=== PATIENT | male | born 1935 | race Caucasian/White ===

== ENCOUNTER 2019-12-27 09:39 | Observation (INO) ==
--- NOTE | 2019-12-03 16:07 | PAT Medication Instructions ---
Medication Instructions Date of Service December 03, 2019 Home Medications albuterol sulfate [Proventil HFA] 2 puff INHALATION Q6H PRN alendronate 70 mg PO WK ascorbic acid (vitamin C) 500 mg PO QAM aspirin 81 mg PO Q2D cholecalciferol (vitamin D3) 1,000 unit PO QAM cyanocobalamin (vitamin B-12) 1,000 mcg PO QAM escitalopram oxalate [Lexapro] 20 mg PO QPM furosemide [Lasix] 20 mg PO 3XWK lisinopril 20 mg PO QAM multivitamin 1 tab PO QAM prednisone 10 mg PO QAM Cbd Oil 1 dose SUBLINGUAL QAM bupropion HCl [Wellbutrin SR] 100 mg PO QAM famotidine 20 mg PO QAM ibuprofen 200 mg PO BID ASK your surgeon for instructions ibuprofen 200 mg PO BID DO NOT take the morning of surgery alendronate 70 mg PO WK ascorbic acid (vitamin C) 500 mg PO QAM cholecalciferol (vitamin D3) 1,000 unit PO QAM cyanocobalamin (vitamin B-12) 1,000 mcg PO QAM furosemide [Lasix] 20 mg PO 3XWK lisinopril 20 mg PO QAM multivitamin 1 tab PO QAM Cbd Oil 1 dose SUBLINGUAL QAM Take morning of surgery With a small sip of water, OTHERWISE NOTHING TO EAT OR DRINK AFTER MIDNIGHT: albuterol sulfate [Proventil HFA] 2 puff INHALATION Q6H PRN (if needed) aspirin 81 mg PO Q2D (if scheduled) prednisone 10 mg PO QAM bupropion HCl [Wellbutrin SR] 100 mg PO QAM famotidine 20 mg PO QAM Other Notes If you have any questions please call us at [phone] or [phone] or [phone] or [phone]
--- NOTE | 2019-12-04 10:45 | Anesthesiology Consultation ---
Date of Service December 04, 2019 Assessment & Plan (1) Encounter for pre-operative examination: COVID Status: As of 12/03 assessment, patient denies travel to endemic area, known exposure/sick contacts, or symptoms of COVID19. Patient instructed that they and their household members must follow strict social distancing guidelines, wear a mask in public and avoid travel for 14 days prior to surgery. Patient did have a birthday constitution party for his 84th birthday on 12/02. Reports there were ~ 30 people present, they did not wear masks but it was outside. Preope rative COVID19 testing to be completed prior to surgery per surgeon's arrangements. Patient made aware to self-isolate as much as possible between COVID testing and surgery. S/P lap cris 02/18/18 @ [facility]: MAC #4, ETT 7.5, grade view II. Smooth IV induction, DL atraumatic. PATIENT IS VERY [place]. Case d/w Dr. Ramirez. Due to chronic demyelinating disease, not a candidate for SAB. Discussed GA vs epidural with patient and his daughter, further discussion to be had AM DOS. Chart Review Chart Review: Acceptable Risk for Surgery and Patient seen in Pre Admission Testing Teaching & Discussion Instructed NPO after midnight before surgery, except medications with 15 cc of water. Medication instructions provided according to the PAT guidelines. History Surgery Operation Date: 12/27/19 10:40 Proposed Procedures p Right Anterior Total Hip Arthroplasty - Miah Feldman, Height/Weight Height: 5 ft 8 in Weight: 90.8 kg Allergies Allergy/AdvReac Type Severity Reaction Status Date / Time simvastatin AdvReac Mild leg pain Verified 11/27/19 09:05 tramadol [From Ultram] AdvReac Mild Hallucinati Verified 11/27/19 09:05 ng Medications Home Medications Medication Instructions Recorded Confirmed Last Taken alendronate 70 mg PO WK 02/17/18 12/04/19 05/15/18 ascorbic acid (vitamin C) 500 mg PO QAM 02/17/18 12/04/19 05/15/18 aspirin 81 mg PO Q2D 02/17/18 12/04/19 05/15/18 cholecalciferol (vitamin D3) 1,000 unit PO QAM 02/17/18 12/04/19 05/15/18 [Vitamin D3] cyanocobalamin (vitamin B-12) 1,000 mcg PO QAM 02/17/18 12/04/19 05/15/18 [Vitamin B-12] escitalopram oxalate [Lexapro] 20 mg PO QPM 02/17/18 12/04/19 05/15/18 multivitamin 1 tab PO QAM 02/17/18 12/04/19 05/15/18 prednisone 10 mg PO QAM 02/17/18 12/04/19 05/15/18 Cbd Oil 1 dose SUBLINGUAL QAM 11/27/19 12/04/19 Unknown bupropion HCl [Wellbutrin SR] 100 mg PO QAM 11/27/19 12/04/19 Unknown famotidine 20 mg PO QAM 11/27/19 12/04/19 Unknown acetaminophen 325 mg tablet 325 mg PO QID PRN 12/04/19 12/04/19 Unknown famotidine 20 mg tablet 20 mg PO DAILY 12/04/19 12/04/19 Unknown furosemide 20 mg tablet 20 mg PO PRN tab 12/04/19 12/04/19 Unknown lisinopril 20 mg tablet 10 mg PO QAM tab 12/04/19 12/04/19 Unknown Past Medical History Medical History Anxiety CIDP (chronic inflammatory demyelinating polyneuropathy) Eduard Grande; Dr. Guzman/ [facility] q 3 months Pt has numbness in feet/ankles, some numbness in fingers. On daily Prednisone 10mg . Depression GERD (gastroesophageal reflux disease) Hypertension Left bundle branch block (LBBB) Osteoporosis Exercise / Class Metabolic Activity II 4-5 Yardwork/Stairs/Walk up hill (Can go up and down stairs, denies CP or SOB, uses cane for stability) Past Family History Family History Other No family history of adverse response to anesthesia Past Surgical History Surgical History History of anesthesia reaction SLOW TO WAKE UP-W GALL BLADDER 2017-[facility] History of cataract surgery RT/LT History of colonoscopy History of esophagogastroduodenoscopy (EGD) History of tooth extraction all teeth History of total left hip replacement Hx of cholecystectomy Past Anesthesia History No Hx of Anesthesia Complications and No Family Hx of Anesthesia Complications History of PONV No Hx of PONV and No Hx of Motion Sickness Social History Smoking Status: Never smoker Do You Dip or Chew Tobacco: No (QUIT YRS AGO) Hx Alcohol Use: No Hx Substance Use: No substance use type: other Substance Use Type Other:: CBD OIL SUBLINGUAL QAM Review of Systems Pt denies any recent chest pain, shortness of breath, palpitations, cough, feve r, URI, or uncontrolled acid reflux. Physical Exam Vital Signs BP: 109/69 P: 76bpm SPO2: 94% RA T: 98.1 F R: 16 ENMT Mouth: + dentures and + edentulous Thyromental Distance: > or= 3.5 Finger Breadths Mallampati Class: I Neck normal visual inspection and + short neck; neck extension not limited Respiratory normal respiratory effort Auscultation: lungs clear to auscultation bilaterally Cardiovascular Rate/Rhythm: regular rate and regular rhythm Heart Sounds: no murmur Vessels: no carotid bruit Extremities: no edema Testing Laboratory Results 12/04/19 11:25 12/04/19 11:25 PT 9.9 Seconds (9.0-12.0) 12/04/19 11:25 INR 0.9 (0.9-1.1) 12/04/19 11:25 APTT 25.0 Seconds (21.0-31.0) 12/04/19 11:25 Hemoglobin A1c 6.1 % (4.5-5.6) H 12/04/19 11:25 Blood Type O Positive 12/04/19 11:25 Antibody Screen NEGATIVE 12/04/19 11:25 Electrocardiogram Date: 12/04/19 Findings: + NSR @ (67bpm) Left axis deviation. Left bundle branch block. No significant change from 02/20/2018. Chest X-Ray Date: 12/04/19 1. No acute process within the chest. 2. Stable mild cardiomegaly. 3. Stable volume loss within the right hemithorax. 4. Improved aeration within the right lung base. Echocardiogram Date: 02/18/18 EF: 50-55% The left ventricle is normal in size. The basal septum is thickened and angulated consistent with sigmoid septum. The right ventricular systolic function is normal. Aortic valve sclerosis mild, without significant aortic valvular stenosis. There were technical limitations due to patient's poor acoustic windows secondary to severe lung disease. *patient had been hospitalized at the time for pneumonia.
[2019-12-04 11:46] LABS: Basophils # (auto) 0.01 K/uL (0-0.2); Basophils % (auto) 0.1 %; Eosinophils # (auto) 0.04 K/uL (0-0.5); Eosinophils % (auto) 0.4 %; Hematocrit (blood only) 41.9 % (42-52); Hemoglobin 13.7 g/dL (14.0-18.0); Immature Granulocytes # (auto) 0.12 K/uL (0.00-0.02); Immature Granulocytes % (auto) 1.2 %; Lymphocytes # (auto) 0.68 K/uL (1.2-3.4); Mean Corpuscular Hemoglobin 33.3 pg (25-34); Mean Corpuscular Hgb Conc 32.7 g/dL (32-36); Mean Corpuscular Volume 101.7 fL (80-100); Mean Platelet Volume 8.9 fL (7.4-10.4); Monocytes # (auto) 0.68 K/uL (0.11-0.59); Neutrophils # (auto) 8.15 K/uL (1.4-6.5); Neutrophils % (auto) 84.3 %; Platelet Count 232 K/uL (130-400); RDW Coefficient of Variation 13.6 % (11.5-14.5); RDW Standard Deviation 50.8 fL (36.4-46.3); Red Blood Count 4.12 M/uL (4.7-6.1); White Blood Count 9.68 K/uL (4.8-10.8)
[2019-12-04 11:58] LABS: INR 0.9 (0.9-1.1); Partial Thromboplastin Ratio 0.9; Prothrombin Time 9.9 Seconds (9.0-12.0)
--- NOTE | 2019-12-04 12:23 | XRay Report ---
XR chest Pre-admission PA/Lat HISTORY: Preop. COMPARISON: Chest 02/20/2018. FINDINGS: Calcified mediastinal lymph nodes are again noted. There is a calcified granuloma within th e right lung base. There is volume loss within the right lung with increased markings within the righ t medial lung base. This is stable compared the prior studies. There is improved aeration within the right lung base with a few linear densities suggesting subsegmental atelectasis. The left lung is antonio ar. Nodular density at the base of the left lower lobe is consistent with a nipple shadow. The heart remains mildly enlarged. No evidence for pulmonary edema. IMPRESSION: 1. No acute process within the chest. 2. Stable mild cardiomegaly. 3. Stable volume loss within the right hemithorax. 4. Improved aeration within the right lung base. ACT 112: Negative or not required by law. Electronically signed by: Rodolfo Pérez M.D. 12/04/2019 12:22 PM
--- NOTE | 2019-12-04 12:39 | Electrocardiogram Report ---
Test Reason : Blood Pressure : / mmHG Vent. Rate : 067 BPM Atrial Rate : 067 BPM P-R Int : 162 ms QRS Dur : 150 ms QT Int : 488 ms P-R-T Axes : 067 -35 094 degrees QTc Int : 515 ms Normal sinus rhythm Left axis deviation Left bundle branch block Abnormal ECG When compared with ECG of 20-FEB-2018 06:35, No significant change was found Confirmed by Devante Georges ([id number]) on 12/04/2019 12:39:32 PM Referred By: Miah Feldman Confirmed By:Devante Georges
[2019-12-04 13:00] LABS: Estimated Average Glucose 128 mg/dl; Hemoglobin A1C 6.1 % (4.5-5.6)
[2019-12-04 13:24] LABS: BUN Creatinine Ratio 16.4 (10-20); Calcium 8.5 mg/dl (8.5-10.1); Creatinine Clr Calc Pharmacy 62.7 ml/min; Est GFR (African American) 87.6; Est GFR (Non-African American) 75.6; Potassium 4.6 mmol/L (3.5-5.1)
--- NOTE | 2019-12-26 06:44 | History & Physical Report ---
Date of Service December 26, 2019 Assessment & Plan (1) Osteoarthritis of right hip: We will proceed with a right anterior total knee arthroplasty. Postoperatively he will be placed on aspirin for DVT prophylaxis and kept overnight in the hospital for postoperative medical management. He plans to use [employer] upon discharge. Present on Admission?: Yes History of Present Illness Chief Complaint: Primary osteoarthritis of the right hip Primary Care Provider: Mai Jett MD Mayank is a pleasant 84-year-old male who has been dealing with chronic increasing right hip and groin pain. X-rays and clinical examination have been diagnostic for advanced osteoarthritis of the right hip. After failing conservative treatment, he has elected to proceed with a right anterior total hip arthroplasty. He does have a history of a left hip replacement done about 10 years ago and has done very well with that. Allergies Allergy/AdvReac Type Severity Reaction Status Date / Time simvastatin AdvReac Mild leg pain Verified 11/27/19 09:05 tramadol [From Ultram] AdvReac Mild Hallucinati Verified 11/27/19 09:05 ng Home Medications Home Medications Medication Instructions Recorded Confirmed Type alendronate 70 mg PO WK 02/17/18 12/04/19 History ascorbic acid (vitamin C) 500 mg PO QAM 02/17/18 12/04/19 History aspirin 81 mg PO Q2D 02/17/18 12/04/19 History cholecalciferol (vitamin D3) 1,000 unit PO QAM 02/17/18 12/04/19 History [Vitamin D3] cyanocobalamin (vitamin B-12) 1,000 mcg PO QAM 02/17/18 12/04/19 History [Vitamin B-12] escitalopram oxalate [Lexapro] 20 mg PO QPM 02/17/18 12/04/19 History multivitamin 1 tab PO QAM 02/17/18 12/04/19 History prednisone 10 mg PO QAM 02/17/18 12/04/19 History Cbd Oil 1 dose SUBLINGUAL QAM 11/27/19 12/04/19 History bupropion HCl [Wellbutrin SR] 100 mg PO QAM 11/27/19 12/04/19 History famotidine 20 mg PO QAM 11/27/19 12/04/19 History acetaminophen 325 mg tablet 325 mg PO QID PRN 12/04/19 12/04/19 History famotidine 20 mg tablet 20 mg PO DAILY 12/04/19 12/04/19 History furosemide 20 mg tablet 20 mg PO PRN tab 12/04/19 12/04/19 History lisinopril 20 mg tablet 10 mg PO QAM tab 12/04/19 12/04/19 History Past Med/Surg History Medical History Anxiety CIDP (chronic inflammatory demyelinating polyneuropathy) Eduard Grande; Dr. Guzman/ [facility] Puente q 3 months Pt has numbness in feet/ankles, some numbness in fingers. On daily Prednisone 10mg . Depression GERD (gastroesophageal reflux disease) Hypertension Left bundle branch block (LBBB) Osteoporosis Surgical History History of anesthesia reaction SLOW TO WAKE UP-W GALL BLADDER 2018-[facility] History of cataract surgery RT/LT History of colonoscopy History of esophagogastroduodenoscopy (EGD) History of tooth extraction all teeth History of total left hip replacement Hx of cholecystectomy Family History Other No family history of adverse response to anesthesia Social History Smoking Status: Never smoker Second Hand Exposure: No; Do You Dip or Chew Tobacco: No (QUIT YRS AGO); Hx Alcohol Use: No Hx Substance Use: No Preferred Language: [place] Communication Ability: Effective Visual Impairment: Limited Hearing Ability: Hard of Hearing Button Maker And Installer Required: No Beliefs That Will Affect Care: None marital status: Current Living Situation: Spouse Other Information That Helps Us Care for You: No Feels Safe at Home: Yes Safety Concerns: Feels Safe At This Time Review of Systems Review of Systems: All systems reviewed & are unremarkable except as noted in HPI & below Physical Exam Constitutional: WD/WN, vitals as above Eyes: PERRL, conjunctivae normal, anicteric sclerae ENMT: external ear and nose normal, oropharynx normal Neck: trachea midline, no thyromegaly Respiratory: normal respiratory effort Cardiovascular: RRR, no murmur, no edema Gastrointestinal (Abdomen): normal bowel sounds, soft, nontender, no hepatosplenomegaly Musculoskeletal: Physical examination of the right hip reveals decreased range of motion with flexion, internal and external rotation. There is significant groin pain with forced internal rotation of the hip his leg lengths are essentially equal. Psychiatric: A+Ox3, euthymic affect Results & Data Results & Data ([facility]) Diagnostic Findings Radiographs of the right hip and pelvis demonstrate advanced osteoarthritis with joint space narrowing osteophyte formation and [id number] articulation. PG Care Time/CCT Total # of Minutes Spent Total Time Spent with Patient: Total time spent is greater than 50% in coordination of care (as documented) at patient's floor/unit and/or counseling patient: Coding Level of Care Code 60591 OBS Care - Level 2 Diagnoses Osteoarthritis of right hip M16.11
[2019-12-26 08:10] LABS: SARS CoV2 RNA (COVID-19) NOT DETECTED (NOT DETECTED)
[~2019-12-27 09:39] MED LIST: ACETAMINOPHEN 500 MG TAB PO SCH; BUPIVACAINE 0.5 % 5 MG/1 ML PF 10ML VIAL ONE; CEFAZOLIN 2000MG 2,000 MG/15 ML SYR IV SCH; FAMOTIDINE 20 MG TAB PO SCH; GABAPENTIN 300 MG CAP PO SCH; LIDOCAINE HCL 2% 2 ML VIAL/AMP(20MG/ML) INFIL ONE; LR 500ML BOLUS, THEN 15ML/HR IV SCH; LR 60ML/HR IV SCH; MIDAZOLAM HCL 1 MG/ML 2ML VIAL ONE; ONDANSETRON INJ 2 MG/ML 2 ML VIAL ONE; PROPOFOL IV EMULSION 10 MG/ML 20 ML VIAL IV ONE; ROPIVACAINE 0.5% HCL/PF 150 MG, BUPIVACAINE 0.5% MPF 30 ML, EPINEPHrine 30MG/30ML (OR U... INSTIL SCH; TRANEXAMIC ACID 1,000 MG **IV Intra-op IV SCH; TRANEXAMIC ACID 1,000 MG **IV Pre-op IV SCH; dexAMETHasone 4 MG TAB PO SCH; fentaNYL citrate 100 MCG/2 ML VIAL ONE
--- NOTE | 2019-12-27 09:43 | History & Physical Bridge Note ---
Date of Service December 27, 2019 History & Physical Bridge Note I have examined the patient, reviewed the History & Physical and in the interval since the performance of the History & Physical I have noted the following changes of clinical significance: no changes noted
[2019-12-27] MEDS ORDERED: ORTHO JOINT ANESTHETIC ONE (10:57)
[2019-12-27] MEDS ORDERED: HYDROmorphone INJ 2 MG/ML SYR/VIAL IV PRN (11:02)
[2019-12-27] MEDS ORDERED: ATROPINE SULFATE 0.1 MG/ML 10ML SYR IV PRN (11:02)
[2019-12-27] MEDS ORDERED: METOCLOPRAMIDE HCL INJ 5 MG/ML 2 ML VIAL IV PRN ×2 (11:02→15:11)
[2019-12-27] MEDS ORDERED: fentaNYL citrate 100 MCG/2 ML VIAL IV PRN (11:02)
[2019-12-27] MEDS ORDERED: ePHEDrine sulfate 50 MG/ML AMP IV PRN (11:02)
[2019-12-27] MEDS ORDERED: ONDANSETRON INJ 2 MG/ML 2 ML VIAL IV PRN ×2 (11:02→15:11)
[2019-12-27] MEDS ORDERED: PROMETHAZINE HCL 12.5 MG in SODIUM CHLORIDE 0.9% 50 ML IV PRN (11:02)
[2019-12-27] MEDS ORDERED: fentaNYL citrate 100 MCG/2 ML VIAL ONE (11:44)
[2019-12-27] MEDS ORDERED: GLYCOPYRROLATE 0.2 MG/ML VIAL ONE (12:59)
[2019-12-27] MEDS ORDERED: NEOSTIGMINE METHYLSULFATE 5 MG/5 ML SYR ONE (12:59)
[2019-12-27] MEDS ORDERED: ROCURONIUM BROMIDE 10 MG/ML 5 ML VIAL IV ONE (12:59)
--- NOTE | 2019-12-27 13:10 | Operative Report ---
PG Post Operative Report Pre & Post Diagnosis Operation Date: 12/27/19 11:35 Pre-Op Diagnosis: Right Hip Degenerative Joint Disease Post-Op Diagnosis: Right Hip Degenerative Joint Disease I identified the patient and participated in the time-out.: Yes Procedure Operation Date: 12/27/19 11:35 Actual Procedures p Right Anterior Total Hip Arthroplasty(Right) - Miah Feldman DO Surgeon Miah Feldman DO Travel Consultant Miah Irene PAC Estimated Blood Loss 250 Findings Consistent with Post-Op Diagnosis Specimens Right femoral head Complications none Disposition Disposition: Recovery Room Indications Mayank is a pleasant 84-year-old male who is been dealing with chronic increasing right hip and groin pain. X-rays and clinical examination are diagnostic for advanced osteoarthritis of the right hip. After failing conservative treatment, he elected proceed with a right anterior total hip arthroplasty. Description of Procedure Implants used I used a Biomet Taperloc total hip arthroplasty system with a size 17 high offset Taperloc stem, a 60 mm G7 cup with a 25mm screw, an E1 polyethylene liner, a 40 mm ceramic head with a +3 neck. Mayank arrived at the hospital for the above procedure. He was seen in the preoperative holding area and the operative extremity was identified and signed. He was given a general anesthetic, a preoperative antibiotic, and TXA. He was then taken back to the operating room and laid on the table in the supine position. He was given basic sedation. The operative leg was secured to a Puristst leg positioner. The hip was then prepped and draped in sterile fashion. A timeout was done and the patient and the operative extremity was properly identified. An anterior approach was used. Dissection was taken down through the fascia and the tensor muscle belly was retracted laterally and the rectus was retracted medially. The circumflex vessels were identified and ligated. The capsule was then incised and tagged for later repair. The femoral neck was then cut and the femoral head was removed. The acetabulum was exposed. Time was spent doing a complete circumferential labral release. Sequential reaming of the acetabulum up to a size 59 reamer was done. Final reamings were done under fluoroscopy to ensure appropriate version. A Biomet 60 mm G7 cup was then impacted into place. A single 25 mm screw was placed. The E1 polyethylene liner was then snapped into place. Surrounding soft tissues were then injected with 100 cc of an orthopedic pain control cocktail. The proximal femur was then exposed. Sequential broaching up to a size 17 broach was done. Off that broach a size 40 head with a +3 neck was trialed. The hip was reduced and fluoroscopic images showed anatomic alignment of the implants in acceptable length. The broach was removed. The final size 17 high offset Taperloc stem was then impacted into place. A ceramic 40 mm head with a 17 neck was then impacted onto the stem and the hip was reduced. Final fluo roscopic images showed anatomic alignment of the hip. The capsule was then closed with #1 Vicryl suture. A dilute betadyne lavage was then done for 3 minutes. The joint was then irrigated with normal saline solution. The fascia was closed with #1 PDS suture. Skin was closed with 2-0 Vicryl, ramya, and a Silverlon dressing. He was then transferred to a hospital bed and taken to the post anesthesia care unit in stable condition. He tolerated the procedure well. Miah Irene PA-C, was present for the entire procedure. He was critical for patient positioning, prepping, draping, retraction exposure, wound closure and application of sterile dressing. I attest to the content of the Intraoperative Record and any orders documented therein. Any exceptions are noted below.
--- NOTE | 2019-12-27 13:10 | Fluoroscopy Report ---
FL hip RT 1V HISTORY: 84 years-old Male RT ANTERIOR TOTAL right hip total joint arthroplasty COMPARISON: Pelvis and hip radiographs 10/23/2019 TECHNIQUE: 3 spot fluoroscopic images of the right hip were obtained utilizing 26.6 seconds fluorosco py time FINDINGS: Right hip total arthroplasty demonstrates satisfactory alignment. No acute fracture. Expected postsur gical soft tissue swelling and deep tissue air. IMPRESSION: Right hip total joint arthroplasty with expected postoperative changes. ACT 112: Negative or not required by law. The above report was generated using voice recognition software. It may contain grammatical, syntax o r spelling errors. Electronically signed by: Hamzah Hilario M.D. 12/27/2019 1:08 PM
--- NOTE | 2019-12-27 14:09 | XRay Report ---
XR hip 1V RT w pelvis HISTORY: 84 years-old Male IN PACU - A/P PELVIS and LATERAL HIP right hip total joint arthroplasty COMPARISON: Fluoroscopic images of the right hip 12/27/2019 TECHNIQUE: AP view of the pelvis with crosstable lateral view of the right hip FINDINGS: Unchanged left hip total joint arthroplasty. Right hip total joint arthroplasty is in satisfactory po sitioning. No acute fracture or unexpected retained radiopaque foreign body. Expected postsurgical so ft tissue swelling and deep tissue air with lateral skin ramya. IMPRESSION: Right hip total joint arthroplasty with expected postoperative changes. ACT 112: Negative or not required by law. The above report was generated using voice recognition software. It may contain grammatical, syntax o r spelling errors. Electronically signed by: Hamzah Hilario M.D. 12/27/2019 2:08 PM
--- NOTE | 2019-12-27 14:40 | Anesthesiology Progress Note ---
Date of Service December 27, 2019 Anesthesia Post Procedure Vital Signs Vital Signs: Temp Pulse Pulse Resp BP BP Pulse Ox 12/27/19 14:25 36.4 C L 82 15 137/75 96 12/27/19 14:15 83 16 145/79 H 95 12/27/19 14:05 80 13 142/75 H 97 12/27/19 13:55 36.7 C 80 18 144/83 H 100 12/27/19 13:45 84 21 139/84 100 12/27/19 13:35 84 18 142/78 H 99 12/27/19 13:29 36.3 C L 85 12 155/91 H 97 12/27/19 10:49 72 18 129/68 94 12/27/19 10:18 36.8 C 84 18 153/84 H 96 Pain Intensity Right Hip: Pain Intensity: 5 Transfer of Care Handoff Completed per policy Notes Mental Status: alert / awake / arousable and participated in evaluation Patient Amnestic to Procedure: Yes Nausea / Vomiting: adequately controlled Pain: adequately controlled Airway Patency, RR, SpO2: stable & adequate BP & HR: stable & adequate Hydration State: stable & adequate Anesthetic Complications: no major complications apparent
[2019-12-27] MEDS ORDERED: MAGNESIUM HYDROXIDE SUSP 30 ML UDC PO PRN (15:11)
[2019-12-27] MEDS ORDERED: NALOXONE HCL 0.4 MG/1 ML VIAL/CARP IV PRN (15:11)
[2019-12-27] MEDS ORDERED: OXYCODONE HCL IR 5 MG TAB (IMMEDIATE RELEASE) PO PRN (15:11)
[2019-12-27] MEDS ORDERED: bisacodyL 10 MG SUPP PR PRN (15:11)
[2019-12-27] MEDS ORDERED: HYDROmorphone INJ 0.5 MG/0.5 ML SYR IV PRN (15:11)
[2019-12-27] MEDS: SODIUM CHLORIDE 0.9% 1000ML 1,000 ML IV SCH (15:37)
[2019-12-27] MEDS ORDERED: FUROSEMIDE 20 MG TAB PO SCH (16:00)
[2019-12-27] MEDS: KETOROLAC TROMETHAMINE 15 MG/ML VIAL IV SCH ×2 (16:44→22:03)
[2019-12-27] MEDS: ACETAMINOPHEN 500 MG TAB PO SCH (18:28)
[2019-12-27] MEDS: CEFAZOLIN 2000MG 2,000 MG/15 ML SYR IV SCH (18:29)
[2019-12-27] MEDS: SENNA 8.6 MG TAB PO SCH (20:03)
[2019-12-27] MEDS: ASPIRIN 81 MG ECTAB PO SCH (20:03)
[2019-12-27] MEDS: DOCUSATE SODIUM 100 MG CAP PO SCH (20:03)
[2019-12-27] MEDS: ESCITALOPRAM OXALATE 20 MG TAB PO SCH (20:03)
[2019-12-28] MEDS: SODIUM CHLORIDE 0.9% 1000ML 1,000 ML IV SCH (00:59)
[2019-12-28] MEDS: KETOROLAC TROMETHAMINE 15 MG/ML VIAL IV SCH ×4 (03:54→21:49)
[2019-12-28] MEDS: CEFAZOLIN 2000MG 2,000 MG/15 ML SYR IV SCH (03:54)
[2019-12-28 05:50] LABS: Hematocrit (blood only) 34.2 % (42-52); Hemoglobin 11.2 g/dL (14.0-18.0); Immature Granulocytes # (auto) 0.08 K/uL (0.00-0.02); Immature Granulocytes % (auto) 0.6 %; Lymphocytes # (auto) 0.65 K/uL (1.2-3.4); Lymphocytes % (auto) 5.1 %; Mean Corpuscular Hemoglobin 32.8 pg (25-34); Mean Corpuscular Hgb Conc 32.7 g/dL (32-36); Mean Corpuscular Volume 100.3 fL (80-100); Mean Platelet Volume 8.7 fL (7.4-10.4); Monocytes # (auto) 1.22 K/uL (0.11-0.59); Monocytes % (auto) 9.6 %; Neutrophils # (auto) 10.71 K/uL (1.4-6.5); Neutrophils % (auto) 84.7 %; Platelet Count 204 K/uL (130-400); RDW Coefficient of Variation 13.4 % (11.5-14.5); RDW Standard Deviation 49.3 fL (36.4-46.3); Red Blood Count 3.41 M/uL (4.7-6.1); White Blood Count 12.66 K/uL (4.8-10.8)
[2019-12-28 06:08] LABS: BUN Creatinine Ratio 18.3 (10-20); Calcium 7.7 mg/dl (8.5-10.1); Creatinine Clr Calc Pharmacy 64.4 ml/min; Est GFR (African American) 86.5; Est GFR (Non-African American) 74.6; Potassium 4.8 mmol/L (3.5-5.1)
[2019-12-28] MEDS: ACETAMINOPHEN 500 MG TAB PO SCH ×3 (06:20→21:49)
--- NOTE | 2019-12-28 07:32 | Orthopedic Progress Note ---
Date of Service December 28, 2019 Assessment & Plan (1) Status post right hip replacement: Overall he is doing fairly well. He will be seen by physical therapy this morning for ambulation and range of motion exercises. He is on aspirin for DVT prophylaxis. We will keep him in the hospital today for therapy and pain control. We will plan to discharge him to home tomorrow. Present on Admission?: Yes Admission and Anticipated Discharge Date Admission Date: December 27, 2019 Sada Davis was seen and examined at bedside this morning. Overall he is doing fairly well. He is not having too much pain in the right hip. He has been up and ambulating to the bathroom with the nursing staff. He has no complaints. Physical Exam Musculoskeletal: On physical examination of the right hip, the dressing has some bloody drainage but is not leaking. His leg lengths are equal. He has active dorsiflexion and plantarflexion of his right ankle. Results & Data ([facility]) Vital Signs (Past 12 Hours) Vital Signs Temp Pulse Resp BP Pulse Ox 12/28/19 07:28 36.6 C 73 18 117/62 94 12/28/19 02:10 36.4 C L 70 18 123/66 94 12/27/19 23:08 36.3 C L 73 16 106/63 91 Laboratory Results H & H 12/04/19 12/28/19 Range/Units 11:25 05:27 Hgb 13.7 L 11.2 L (14.0-18.0) g/dL Hct 41.9 L 34.2 L (42-52) % Coagulation 12/04/19 Range/Units 11:25 INR 0.9 (0.9-1.1) Diagnostic Findings Postoperative x-rays of the right hip show the prosthesis to be in anatomic alignment without any evidence of fracture, dislocation, or loosening. PG Care Time/CCT Total # of Minutes Spent Total Time Spent with Patient: Total time spent is greater than 50% in coordination of care (as documented) at patient's floor/unit and/or counseling patient: Coding Level of Care Code None Diagnoses Status post right hip replacement Z96.641
[2019-12-28] MEDS ORDERED: dexAMETHasone 4 MG TAB PO SCH (08:00)
--- NOTE | 2019-12-28 08:11 | Anesthesiology Progress Note ---
Date of Service December 28, 2019 Anesthesia Post Procedure Vital Signs Vital Signs: Temp Pulse Pulse Pulse Resp BP BP 12/28/19 07:28 36.6 C 73 18 117/62 12/28/19 02:10 36.4 C L 70 18 123/66 12/27/19 23:08 36.3 C L 73 16 106/63 12/27/19 17:55 36.6 C 94 H 18 117/64 12/27/19 16:51 36.4 C L 84 18 134/79 12/27/19 15:54 36.4 C L 89 18 111/68 12/27/19 15:23 36.4 C L 88 18 129/75 12/27/19 14:51 36.4 C L 84 15 145/77 H 12/27/19 14:40 92 H 17 139/77 12/27/19 14:25 36.4 C L 82 15 137/75 12/27/19 14:15 83 16 145/79 H 12/27/19 14:05 80 13 142/75 H 12/27/19 13:55 36.7 C 80 18 144/83 H 12/27/19 13:45 84 21 139/84 12/27/19 13:35 84 18 142/78 H 12/27/19 13:29 36.3 C L 85 12 155/91 H 12/27/19 10:49 72 18 129/68 12/27/19 10:18 36.8 C 84 18 153/84 H Pulse Ox 12/28/19 07:28 94 12/28/19 02:10 94 12/27/19 23:08 91 12/27/19 17:55 97 12/27/19 16:51 99 12/27/19 15:54 98 12/27/19 15:23 99 12/27/19 14:51 99 12/27/19 14:40 97 12/27/19 14:25 96 12/27/19 14:15 95 12/27/19 14:05 97 12/27/19 13:55 100 12/27/19 13:45 100 12/27/19 13:35 99 12/27/19 13:29 97 12/27/19 10:49 94 12/27/19 10:18 96 Pain Intensity Right Hip: Pain Intensity: 0 Notes Mental Status: alert / awake / arousable and participated in evaluation Nausea / Vomiting: adequately controlled Pain: adequately controlled Airway Patency, RR, SpO2: stable & adequate BP & HR: stable & adequate Hydration State: stable & adequate Anesthetic Complications: no major complications apparent and Pt Satisfied with anesthetic care
[2019-12-28] MEDS ORDERED: FAMOTIDINE 20 MG TAB PO SCH (09:00)
[2019-12-28] MEDS: ASPIRIN 81 MG ECTAB PO SCH ×2 (09:10→20:21)
[2019-12-28] MEDS: DOCUSATE SODIUM 100 MG CAP PO SCH ×2 (09:10→20:21)
[2019-12-28] MEDS: BuPROPion SR 100 MG TABCR PO SCH (09:11)
[2019-12-28] MEDS: FAMOTIDINE 20 MG TAB PO SCH (09:11)
[2019-12-28] MEDS: lisinopriL 10 MG TAB PO SCH (09:11)
[2019-12-28] MEDS: MULTIVITAMIN TAB PO SCH (09:11)
[2019-12-28] MEDS: predniSONE 10 MG TABLET PO SCH (09:11)
[2019-12-28] MEDS: SENNA 8.6 MG TAB PO SCH (20:21)
[2019-12-28] MEDS: ESCITALOPRAM OXALATE 20 MG TAB PO SCH (20:22)
[2019-12-29] MEDS: KETOROLAC TROMETHAMINE 15 MG/ML VIAL IV SCH ×2 (04:33→09:42)
[2019-12-29] MEDS: ACETAMINOPHEN 500 MG TAB PO SCH (05:57)
[2019-12-29] MEDS ORDERED: ALENDRONATE SODIUM 70 MG TAB PO SCH (06:30)
[2019-12-29] MEDS: FAMOTIDINE 20 MG TAB PO SCH (07:21)
[2019-12-29] MEDS: BuPROPion SR 100 MG TABCR PO SCH (07:21)
[2019-12-29] MEDS: MULTIVITAMIN TAB PO SCH (07:22)
[2019-12-29] MEDS: lisinopriL 10 MG TAB PO SCH (07:22)
[2019-12-29] MEDS: predniSONE 10 MG TABLET PO SCH (07:23)
[2019-12-29] MEDS: DOCUSATE SODIUM 100 MG CAP PO SCH (07:23)
[2019-12-29] MEDS: ASPIRIN 81 MG ECTAB PO SCH (07:24)
--- NOTE | 2019-12-29 07:55 | Orthopedic Progress Note ---
Date of Service December 29, 2019 Assessment & Plan (1) Status post right hip replacement: Overall he is doing well. Is not having much pain in the right hip. He will be seen by physical therapy again today for ambulation and range of motion exercises. He is on aspirin for DVT prophylaxis. He can be discharged home later today. He will follow-up with orthopedics in 2 weeks. Present on Admission?: Yes Admission and Anticipated Discharge Date Admission Date: December 27, 2019 Sada Talley was seen and examined at bedside this morning. Overall he is doing very well. He was sitting up and eating breakfast. He was able to participate well with physical therapy yesterday walking up and down the hallways. His pain is c ontrolled and he has no complaints. Physical Exam Musculoskeletal: On physical examination of the right hip, the Silverlon dressing has some drainage but is not currently leaking. Apparently it has already been changed several times. His leg lengths are equal. He has active dorsiflexion and plantarflexion of the right ankle. Results & Data ([facility]) Vital Signs (Past 12 Hours) Vital Signs Temp Pulse Resp BP Pulse Ox 12/29/19 06:35 36.8 C 74 18 114/63 93 12/28/19 23:19 37.0 C 70 16 106/64 93 PG Care Time/CCT Total # of Minutes Spent Total Time Spent with Patient: Total time spent is greater than 50% in coordination of care (as documented) at patient's floor/unit and/or counseling patient: Coding Level of Care Code None Diagnoses Status post right hip replacement Z96.641
--- NOTE | 2019-12-29 07:57 | Discharge Summary ---
Date of Service December 29, 2019 Admission HPI Per Admitting Provider Mayank is a pleasant 84-year-old male who has been dealing with chronic increasing right hip and groin pain. X-rays and clinical examination have been diagnostic for advanced osteoarthritis of the right hip. After failing conservative treatment, he has elected to proceed with a right anterior total hip arthroplasty. He does have a history of a left hip replacement done about 10 years ago and has done very well with that. Principal Diagnosis Right hip replacement Discharge Data Allergies Allergy/AdvReac Type Severity Reaction Status Date / Time simvastatin AdvReac Mild leg pain Verified 12/27/19 10:12 tramadol [From Ultram] AdvReac Mild Hallucinati Verified 12/27/19 10:12 ng Consultations 12/28/19 08:00 Consult Case Management - Discharge Planning Routine Procedures Performed Operation Date: 12/27/19 11:35 Actual Procedures p Right Anterior Total Hip Arthroplasty(Right) - Miah Feldman DO Ordered Studies 12/27/19 11:35 FL fluoroscopy <1hr Routine FL hip RT 1V Routine Hospital Course (1) Status post right hip replacement: On December 27, 2019 Daniel arrived at [facility] and underwent a right anterior total hip arthroplasty without complication. He had a spinal anesthetic. Postoperatively he was started on aspirin for DVT prophylaxis and transferred to the general orthopedic floors. His hospital course was uneventful. On postop day #1 his H&H was stable and his pain was well controlled. He was able to participate well with physical therapy doing ambulation and range of motion exercises. On postop day #2 we continue to do we ll. He worked well once again with physical therapy. He was then discharged home. He will follow-up with orthopedics in 2 weeks. Total Time Total Time Spent Total Time Spent (In Minutes): 20 Discharge Plan Discharge Items Patient Disposition: Home - Home Health Services Reason For Visit: Right Hip Degenerative Joint Disease Discharge Diagnosis: Status post right hip replacement Activity: As commented below Non-emergency contact: Surgeon Call non-emergency contact if: your wound has increased redness and your wound has increased drainage Follow-up/Referrals: Mai Jett MD [Primary Care Provider] - Diet: Regular Addtl Attending Provider Instructions: Activity and Therapy Recommendations: * If you are using [facility] then therapy will be provided at your home until they feel you have accomplished all of your goals. * If you are using [x+1] Home Health then Physical Therapy will be provided until they feel you are ready to start Outpatient Physical Therapy. * If you are not using home therapy then Outpatient Physical Therapy should start about 3-5 days from your day of surgery. Therapy will last about 6-10 weeks * You were shown a series of exercises in the hospital. Do these exercises three times each day including the exercises you were shown in physical therapy. * Get up and walk several times each day.~ For the first four weeks, try not to stand or walk for more than one hour at a time. If you do stand or walk for more than one hour, you will not hurt anything, but your leg will likely swell.~~ * As you feel comfortable, you may change from the walker or crutches to a cane and~then to independent walking. Medications: * Narcotic You will likely be sent home from the hospital with a prescription for the narcotic pain medication that worked best throughout your stay. * Aspirin Most patients will be required to take Aspirin 81mg twice a day for 6 weeks after surgery. This is obtained [id number] and a prescription is not necessary. * Other medications may be prescribed for specific circumstances. If you have any questions, please call the office at . * Resume previous home medications unless otherwise instructed TEDs/Elastic Stockings: The white elastic stockings help limit swelling and prevent blood clots from forming in your legs. The more you wear them, the more they work. Wear them for six weeks. Dressing Care: Leave the Silverlon dressing in place for 7 days. After 7 days you may remove the dressing. If the incision is not draining then you may leave the ramya open to air. If there is a little bit of drainage or if the ramya are getting stuck on your clothing then cover the incision with a dry dressing. The ramya will be removed at your 2 week follow-up appointment. Showering: You may shower with the Silverlon dressing in place. Do not let the shower spray hit the dressing directly. Pat the Silverlon dressing dry. If the dressing becomes wet underneath, then simply remove the dressing. Keep the incision dry until you are 7 days out from the day of surgery. After 7 days you may remove the Silverlon dressing and shower with the ramya exposed. Let soapy water run over the ramya and pat them dry. Do not scrub or soak the incision. Things To Watch For: * Drainage from the incision site that occurs more than one week after your surgery. * Increased redness at the incision site. * Fever above 102 degrees Fahrenheit. * Unusual chest pain or shortness of breath. * Call [facility] at with any of the above problems Follow-Up Visit: Follow-up with Dr. Feldman's PA (Miah Irene) 2-3 weeks after your day of surgery. He will remove your ramya and answer any questions. If you have any additional questions or concerns, Dr Feldman is usually in the office at the same time and will be available An appointment was probably scheduled when you signed-up for surgery in the office. If you have any questions call Office Instructions: More detailed instructions as well as Frequently Asked Questions were provided in a folder by our office when you signed-up for surgery. Please review these instructions when you get home. If you have any further questions or concerns, please feel free to call the office at [phone] Pending Studies at Discharge: No Stand-Alone Forms: My [facility], Smoking Cessation Medications and DC Order Prescriptions: New tramadol 50 mg tablet 50 mg PO Q6H PRN (Reason: pain) Qty: 30 RF: 0 Continued famotidine [Acid Glass Checker (famotidine)] 20 mg tablet 20 mg PO DAILY RF: 0 acetaminophen [Tylenol] 325 mg tablet 325 mg PO QID PRN (Reason: Pain) RF: 0 multivitamin Tablet 1 tab PO QAM RF: 0 prednisone 10 mg Tablet 10 mg PO QAM RF: 0 alendronate [Fosamax] 70 mg Tablet 70 mg PO WK RF: 0 cyanocobalamin (vitamin B-12) [Vitamin B-12] 1,000 mcg Tablet 1,000 mcg PO QAM RF: 0 escitalopram oxalate [Lexapro] 20 mg Tablet 20 mg PO QPM RF: 0 cholecalciferol (vitamin D3) [Vitamin D3] 1,000 unit Tablet 1,000 unit PO QAM RF: 0 ascorbic acid (vitamin C) 500 mg Tablet 500 mg PO QAM RF: 0 lisinopril 20 mg tablet 10 mg PO QAM RF: 0 furosemide [Lasix] 20 mg tablet 20 mg PO PRN RF: 0 bupropion HCl [Wellbutrin SR] 100 mg Tablet Sustained-Release 12 Hr 100 mg PO QAM RF: 0 famotidine 20 mg Tablet 20 mg PO QAM RF: 0 Cbd Oil 1 dose sublingual QAM RF: 0 Changed aspirin 81 mg Tablet,Delayed Release (Dr/Ec) 81 mg PO BID 42 Days Qty: 0 RF: 0 Discharge Orders: Discharge Order (Routine); Ordered 12/29/19 Ordered By: Miah Doe/Other Patient Handouts: A1C Admission Data Admit Date/Time: 12/27/19 13:26 Attending Provider: Miah Feldman Admit Provider: Miah Feldman Primary Care Provider: Mai Jett Other Providers: [facility],Home Health Coding Level of Care Code D/C Day Management <30 mins Diagnoses Status post right hip replacement Z96.641
== END 2019-12-29 11:42 | disposition home health service (06) ==
LOC: 3E 09:39 → ASU 09:39

== ENCOUNTER 2020-11-12 10:08 | Inpatient (IN) ==
--- NOTE | 2020-11-12 11:22 | Emergency Department Note ---
Impression & Plan Contusion of flank, Abdominal pain, Fracture of ribs, multiple, Elevated troponin I level, Pulmonary edema ED Provider Note NAME: HERLINDA GRACE AGE: 84 SEX: M : 1935 ARRIVES VIA: Walk-In INFORMANT: Patient, the patient's daughter ED PROVIDER(S): Devante Montana DO CHIEF COMPLAINT: Abdominal pain HPI: The patient is an 84-year-old male who presented to the emergency department with his daughter for an evaluation of abdominal pain. The patient has had multiple issues over the course of the last few weeks. He started to notice difficulty breathing especially with exertion. He denies any orthopnea. He denies having any chest pain. He is also noticed abdominal distention and abdominal pain especially on the right side. He has had lower extremity swelling and also erythema of the lower extremities. He was started on Keflex by his primary care physician. There has been no nausea or vomiting. The patient has had no chest discomfort that he admits to. He started noticing worsening abdominal pain. He was evaluated by a family friend who is also an ER physician. He was noted to have significant ecchymosis over the right flank. He was then sent to the emergency department for further evaluation. The pa tient denies having any trauma. He does have exquisite tenderness over this area with palpation. He does not have a history of alcohol use or pancreatitis. He has noticed no dysuria or frequency. He said no hematuria. The patient has been compliant with all his other outpatient medications. He states his pain is moderate to severe and does worsen with palpation or ambulation. He is noticed no fever. He said no exposure to COVID-19. 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 ROS: See above HPI for pertinent positives & negatives. A total of 10 systems reviewed and were otherwise negative. PAST MEDICAL HISTORY: See Below PAST SURGICAL HISTORY: See Below FAMILY HISTORY: See Below SOCIAL HISTORY: See Below HOME MEDICATIONS: See Below ALLERGIES: See Below VITALS: See Below PHYSICAL EXAMINATION: GENERAL: The patient is awake and alert. He is nonanxious appearing. EYES: The conjunctivae are clear. The pupils are round and reactive. EARS, NOSE, MOUTH AND THROAT: The nose is without any evidence of any deformity. NECK: The neck is nontender and supple. RESPIRATORY: Diminished breath sounds are noted throughout. There were rales at both bases. CARDIOVASCULAR: Regular rate and rhythm noted there no murmurs rubs or gallops normal S1 normal S2. GASTROINTESTINAL: The abdomen is soft and mildly distended. There is ecchymosis over the right flank. There is significant tenderness over the right upper quadrant and right lower quadrant. There is guarding in the right upper quadrant. BACK: CVA tenderness was noted to percussion over the right. MUSCULOSKELETAL/EXTREMITIES: There is no evidence of gross deformity full range of motion is noted in the hips and shoulders. SKIN: Pedal edema was noted bilaterally. There is erythema over both lower legs and a an irregular border pattern. NEUROLOGIC: Patient is awake alert and oriented x3. MEDICAL DECISION MAKING: The patient is an 84-year-old male who presented to the emergency department for an evaluation of right-sided pain. The patient was noted to have significant ecchymosis. There is no definite trauma but on radiographic studies the patient was found to have multiple rib fractures that may be healing already. I d iscussed the patient's laboratory and radiographic studies with him. I discussed his condition with his daughter. He was found to have multiple abnormalities including an elevated troponin. He does have no significant changes compared to previous tracing but his EKG is abnormal. The patient was reevaluated multiple times. I discussed his case with the on-call [facility] hospitalist group. They have agreed to evaluate the patient in the emergency department for further management and disposition. Triage Nursing notes reviewed. Prior medical records reviewed Vital Signs: reviewed and remarkable for elevated blood pressure. Differential diagnosis: Etiologies such as appendicitis, diverticulitis, obstruction, inflammatory bowel disease, renal colic, PUD, biliary pathology, pancreatitis, mesenteric ischemia, aortic pathology, infections, genitourinary, UTI, perforated viscus, as well as others were entertained. ER treatment provided: See below Diagnostics interpreted by me: ECG: EKG was obtained in the emergency department. My interpretation is sinus rhythm at 88 bpm. There were no PVCs noted. Left bundle branch block pattern was noted. There was high lateral ST depressions. This was compared to a tracing from December 032019. No significant changes were noted. Cardiac Monitoring: An order was placed for continuous cardiac monitoring. The monitor shows a rate of 85 bpm with sinus rhythm. Laboratory studies: As stated above and show below. Imaging studies: See below Consultation(s): 1350: I discussed this case with Jalyn Patten who is on-call for the [facility] hospitalist group. They will evaluate the patient in the emergency department. Past Med/Surg History Medical History Anxiety CIDP (chronic inflammatory demyelinating polyneuropathy) Eduard Grande; Dr. Guzman/ Suzanne Puente q 3 months Pt has numbness in feet/ankles, some numbness in fingers. On daily Prednisone 10mg . Depression GERD (gastroesophageal reflux disease) Hypertension Left bundle branch block (LBBB) Mild aortic stenosis Osteoporosis Surgical History History of anesthesia reaction SLOW TO WAKE UP-W GALL BLADDER 2018-[facility] History of cataract surgery RT/LT History of colonoscopy History of esophagogastroduodenoscopy (EGD) History of tooth extraction all teeth History of total left hip replacement Hx of cholecystectomy S/P laparoscopic cholecystectomy Status post right hip replacement (~12/2019) Family History Father Heart disease Other No family history of adverse response to anesthesia Social History Smoking Status: Never smoker Second Hand Exposure: No; Hx Alcohol Use: No Hx Substance Use: No Preferred Language: Yakut Communication Ability: Effective Visual Impairment: Limited Hearing Ability: Hard of Hearing Roving Technician Required: No Beliefs That Will Affect Care: None marital status: Current Living Situation: Spouse Other Information That Helps Us Care for You: No Feels Safe at Home: Yes Safety Concerns: Feels Safe At This Time Assistive Devices: Denture - Upper, Denture - Lower, Hearing Aid - Bilateral and Walker Allergies Allergies Allergy/AdvReac Type Severity Reaction Status Date / Time simvastatin AdvReac Mild leg pain Verified 11/12/20 12:05 tramadol [From Ultram] AdvReac Mild Hallucinati Verified 11/12/20 12:05 ng Home Meds Home Medications Medication Instructions Recorded Confirmed alendronate 70 mg tablet (Fosamax) 70 mg PO WK 02/17/18 11/12/20 ascorbic acid (vitamin C) 500 mg 500 mg PO QAM 02/17/18 11/12/20 tablet cholecalciferol (vitamin D3) 25 1,000 unit PO QAM 02/17/18 11/12/20 mcg (1,000 unit) tablet (Vitamin D3) cyanocobalamin (vitamin B-12) 1,000 mcg PO QAM 02/17/18 11/12/20 1,000 mcg tablet (Vitamin B-12) escitalopram oxalate 20 mg tablet 20 mg PO QPM 02/17/18 11/12/20 (Lexapro) multivitamin 1 tab PO QAM 02/17/18 11/12/20 Cbd Oil 1 dose SUBLINGUAL QAM 11/27/19 11/12/20 famotidine 20 mg tablet (Acid 20 mg PO PM 12/04/19 11/12/20 Rougher Helper (famotidine)) furosemide 20 mg tablet (Lasix) 20 mg PO DAILY tab 12/04/19 11/12/20 prednisone 20 mg tablet 15 mg PO DAILY 10/13/20 11/12/20 acetaminophen 500 mg tablet 500 - 1,000 mg PO BID PRN 11/12/20 11/12/20 (Tylenol Extra Strength) aspirin 81 mg tablet,delayed 81 mg PO QAM 11/12/20 11/12/20 release bupropion HCl 150 mg 24 hr tablet, 150 mg PO QAM 11/12/20 11/12/20 extended release cephalexin 250 mg capsule 250 mg PO QID 11/12/20 11/12/20 lisinopril 10 mg tablet 10 mg PO QAM 11/12/20 11/12/20 Results & Data (ED) Vital Signs Vital Signs - 24 hr 11/12/20 10:14 11/12/20 11:24 11/12/20 11:38 Temperature Source Temporal Artery Scan Pulse Rate 102 H 90 93 H Respiratory Rate 18 25 H 27 H Blood Pressure 107/66 Blood Pressure Mean 79 Blood Pressure Position Sitting Pulse Oximetry 96 Oxygen Delivery Method Room Air Sepsis Recent Fever Within 48 Hours No Sepsis New/Unexplained Change in Mental Status N/A Sepsis Action Taken by Nursing No Action Required 11/12/20 12:00 11/12/20 12:45 11/12/20 13:00 Temperature Source Pulse Rate 93 H 92 H 94 H Respiratory Rate 19 20 22 Blood Pressure 144/89 H Blood Pressure Mean 107 Blood Pressure Position Pulse Oximetry 93 94 Oxygen Delivery Method Room Air Room Air Sepsis Recent Fever Within 48 Hours Sepsis New/Unexplained Change in Mental Status Sepsis Action Taken by Nursing 11/12/20 13:30 11/12/20 14:00 Temperature Source Pulse Rate 99 H 89 Respiratory Rate 20 19 Blood Pressure 162/102 H 159/97 H Blood Pressure Mean 122 117 Blood Pressure Position Pulse Oximetry 94 95 Oxygen Delivery Method Room Air Room Air Sepsis Recent Fever Within 48 Hours Sepsis New/Unexplained Change in Mental Status Sepsis Action Taken by Long-Term Medications Current Medication List: was personally reviewed by me Laboratory Data Attestation: I reviewed the patient's lab results. Result diagrams: 11/13/20 05:20 11/13/20 05:20 Lab Results 11/12/20 11/12/20 11/12/20 Range/Units 11:08 11:08 11:08 WBC 9.00 (4.8-10.8) K/uL RBC 3.74 L (4.7-6.1) M/uL Hgb 12.7 L (14.0-18.0) g/dL Hct 39.1 L (42-52) % MCV 104.5 H (80-100) fL MCH 34.0 (25-34) pg MCHC 32.5 (32-36) g/dL RDW Std Deviation 58.7 H (36.4-46.3) fL RDW Coeff of Anupama 15.4 H (11.5-14.5) % Plt Count 250 (130-400) K/uL MPV 8.7 (7.4-10.4) fL Immature Gran % (Auto) 6.3 % Neut % (Auto) 81.5 % Lymph % (Auto) 5.8 % [place] % (Auto) 5.4 % Eos % (Auto) 0.6 % Baso % (Auto) 0.4 % Neut # (Auto) 7.33 H (1.4-6.5) K/uL Lymph # (Auto) 0.52 L (1.2-3.4) K/uL [place] # (Auto) 0.49 (0.11-0.59) K/uL Eos # (Auto) 0.05 (0-0.5) K/uL Baso # (Auto) 0.04 (0-0.2) K/uL Immature Gran # (Auto) 0.57 H (0.00-0.02) K/uL PT 9.6 (9.0-12.0) Seconds INR 0.9 (0.9-1.1) APTT 22.0 (21.0-31.0) Seconds PTT Ratio 0.8 Sodium 139 (136-145) mmol/L Potassium 4.5 (3.5-5.1) mmol/L Chloride 106 (98-107) mmol/L Carbon Dioxide 30 (21-32) mmol/L Anion Gap 3.0 (3-11) BUN 23 H (7-18) mg/dl Creatinine 0.92 (0.6-1.4) mg/dl Est Cr Clr Drug Dosing 67.4 ml/min Est GFR ( Amer) 87.6 ml/min Est GFR (Non-Af Amer) 75.6 ml/min BUN/Creatinine Ratio 24.4 H (10-20) Glucose 117 H (70-99) mg/dl Calcium 8.2 L (8.5-10.1) mg/dl Total Bilirubin 0.6 (0.2-1) mg/dl AST 33 (15-37) U/L ALT 32 (12-78) U/L Alkaline Phosphatase 50 (45-117) U/L Troponin I 0.149 H* (0-0.045) ng/ml NT-Pro-B Natriuret Pep 4862 H (0-1800) pg/ml Total Protein 6.3 L (6.4-8.2) gm/dl Albumin 2.9 L (3.4-5.0) gm/dl Globulin 3.4 (2.5-4.0) gm/dl Albumin/Globulin Ratio 0.9 (0.9-2) Lipase 73 (73-393) U/L Urine Color Urine Appearance (Clear) Urine pH (4.5-7.5) Ur Specific [place] (1.000-1.030) Urine Protein (Negative) Urine Glucose (UA) (Negative) Urine Ketones (Negative) Urine Blood (Negative) Urine Nitrite (Negative) Urine Bilirubin (Negative) Urine Urobilinogen (Negative) Ur Leukocyte Esterase (Negative) COVID-19 Eval Order SARS-CoV-2 (PCR) (Negative) 11/12/20 11/12/20 11/12/20 Range/Units 12:05 12:05 12:25 WBC (4.8-10.8) K/uL RBC (4.7-6.1) M/uL Hgb (14.0-18.0) g/dL Hct (42-52) % MCV (80-100) fL MCH (25-34) pg MCHC (32-36) g/dL RDW Std Deviation (36.4-46.3) fL RDW Coeff of Anupama (11.5-14.5) % Plt Count (130-400) K/uL MPV (7.4-10.4) fL Immature Gran % (Auto) % Neut % (Auto) % Lymph % (Auto) % [place] % (Auto) % Eos % (Auto) % Baso % (Auto) % Neut # (Auto) (1.4-6.5) K/uL Lymph # (Auto) (1.2-3.4) K/uL [place] # (Auto) (0.11-0.59) K/uL Eos # (Auto) (0-0.5) K/uL Baso # (Auto) (0-0.2) K/uL Immature Gran # (Auto) (0.00-0.02) K/uL PT (9.0-12.0) Seconds INR (0.9-1.1) APTT (21.0-31.0) Seconds PTT Ratio Sodium (136-145) mmol/L Potassium (3.5-5.1) mmol/L Chloride (98-107) mmol/L Carbon Dioxide (21-32) mmol/L Anion Gap (3-11) BUN (7-18) mg/dl Creatinine (0.6-1.4) mg/dl Est Cr Clr Drug Dosing ml/min Est GFR ( Amer) ml/min Est GFR (Non-Af Amer) ml/min BUN/Creatinine Ratio (10-20) Glucose (70-99) mg/dl Calcium (8.5-10.1) mg/dl Total Bilirubin (0.2-1) mg/dl AST (15-37) U/L ALT (12-78) U/L Alkaline Phosphatase (45-117) U/L Troponin I (0-0.045) ng/ml NT-Pro-B Natriuret Pep (0-1800) pg/ml Total Protein (6.4-8.2) gm/dl Albumin (3.4-5.0) gm/dl Globulin (2.5-4.0) gm/dl Albumin/Globulin Ratio (0.9-2) Lipase (73-393) U/L Urine Color Yellow Urine Appearance Clear (Clear) Urine pH 6.0 (4.5-7.5) Ur Specific [place] 1.013 (1.000-1.030) Urine Protein Negative (Negative) Urine Glucose (UA) Negative (Negative) Urine Ketones Negative (Negative) Urine Blood Negative (Negative) Urine Nitrite Negative (Negative) Urine Bilirubin Negative (Negative) Urine Urobilinogen Negative (Negative) Ur Leukocyte Esterase Negative (Negative) COVID-19 Eval Order Covid19 at [facility] SARS-CoV-2 (PCR) NEGATIVE (Negative) Administered Medications Clotrimazole (Clotrimazole 1% Cr 15 Gm Tube) 1 appln EXT BID BARB Stop: 12/12/20 20:59 Last Admin: 11/12/20 20:40 Dose: 1 appln Documented by: [id number] Escitalopram Oxalate (Escitalopram Oxalate 20 Mg Tab) 20 mg PO QPM BARB Stop: 12/12/20 20:59 Last Admin: 11/12/20 20:40 Dose: 20 mg Documented by: [id number] Famotidine (Famotidine 20 Mg Tab) 20 mg PO PM BARB Stop: 12/12/20 20:59 Last Admin: 11/12/20 20:40 Dose: 20 mg Documented by: [id number] Discontinued Medications Furosemide (Furosemide 40 Mg/4 Ml Vial) 40 mg IV ONE ONE Stop: 11/12/20 15:17 Last Admin: 11/12/20 17:28 Dose: Not Given Documented by: [id number] Furosemide (Furosemide 40 Mg/4 Ml Vial) Confirm Administered Dose 40 mg IV .STK- MED ONE Stop: 11/12/20 17:26 Last Admin: 11/12/20 17:28 Dose: 40 mg Documented by: [id number] Imaging Data Radiologist's Impression: Abdomen/Pelvis CT 11/12/20 10:55 CT SCAN OF THE ABDOMEN AND PELVIS WITHOUT CONTRAST CLINICAL HISTORY: right flank pain and ecchymosis COMPARISON STUDY: No previous studies for comparison. TECHNIQUE: CT scan of the abdomen and pelvis was performed from the lung bases to the proximal femurs. Images are reviewed in the axial, sagittal, and coronal planes. IV contrast was not administered for this examination. A dose lowering technique was utilized adhering to the principles of ALARA. CT DOSE: 1005.96 mGycm FINDINGS: Lower chest: Small bilateral pleural effusion and mixed reticular and groundglass opacities at bilateral bases. Liver: The unenhanced liver is normal in size, contour, and attenuation. There is no intrahepatic biliary ductal dilatation. Gallbladder: Is surgically absent Spleen: Is small with multiple calcifications of its parenchyma which could represent sequela from prior granulomatous process. Pancreas: Is slightly atrophic. No definite pancreatic lesions are seen. Adrenal glands: Unremarkable. Kidneys: The unenhanced kidneys are normal in size without hydronephrosis. No renal calculi are identified. 4.7 x 3.1 cm right renal cyst is seen. Bowel: Bowel loops are nondilated. Appendix shows normal morphology and gas filled. Diverticulosis of sigmoid colon is seen without evidence of diverticulitis. Rectum is probably dilated however evaluation of the lower pelvic region is limited due to significant beam hardening artifact from bilateral hip prosthetic joints. Peritoneum: There is no intraperitoneal free air or abdominal ascites. Vasculature: The abdominal aorta is normal in course and caliber. Adenopathy: None. Pelvic viscera: Urinary bladder is adequately filled with urine. Prostate gland is not well seen due to beam hardening artifact from orthopedic hardware. Small bilateral fat-containing inguinal hernias are seen. Skeletal structures: Mild diffuse osteopenia. Multilevel degenerative changes of the spine. Minimal retrolisthesis of the L1 on L2. Mild compression fracture deformity of the T12. No subcutaneous lesions. Healed fracture deformities of the lateral ninth and 10th ribs. IMPRESSION: 1. Mild compression fracture deformity of T12. Healing deformities of the right lower rib cage. 2. No acute intra-abdominal process. Nondilated loops of bowel. Normal appendix. Diverticulosis of sigmoid colon without evidence of diverticulitis. 3. Small bilateral pleural effusion and possible infiltrates at bilateral bases. Please correlate above-mentioned findings with clinical presentation and prior history of pneumonia. 4. Large right renal cyst. 5. The rest of findings as above. ACT 112: Negative or not required by law. The above report was generated using voice recognition software. It may contain grammatical, syntax or spelling errors. Electronically signed by: Kate Love DO 11/12/2020 11:50 AM Chest X-Ray 11/12/20 10:57 XR chest 1V portable HISTORY: 84 years-old Male SOB acute shortness of breath COMPARISON: Chest radiographs 12/04/2019 TECHNIQUE: Portable AP view of the chest FINDINGS: Cardiac silhouette is enlarged. Pulmonary vascular congestion. Patchy ill- defined bilateral airspace opacities. Trace pleural effusions. No pneumothorax. Degenerative changes of the shoulders and spine. IMPRESSION: 1. Cardiomegaly with pulmonary vascular congestion. 2. Patchy bilateral airspace opacities are suspicious for an infectious or inflammatory pneumonitis. 3. Trace pleural effusions. ACT 112: Negative or not required by law. The above report was generated using voice recognition software. It may contain grammatical, syntax or spelling errors. Electronically signed by: Roldan Hilario M.D. 11/12/2020 11:[address] 11/12/20 11:56 CT chest diagnostic wo con CT DOSE: 558.01 mGycm CLINICAL HISTORY: 84 years-old Male with right rib pain. Acute right-sided chest pain status post fall TECHNIQUE: Multiaxial CT images of the chest were performed without contrast. A dose lowering technique was utilized adhering to the principles of ALARA. COMPARISON: CT abdomen and pelvis of same day, chest CT 12/23/2011 FINDINGS: Unremarkable thyroid. 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 Moderate atherosclerotic plaque of the thoracic aorta. Moderate cardiomegaly with moderate coronary artery calcifications. There is no thoracic aortic aneurysm. Calcified mediastinal and hilar lymph nodes. Small layering pleural effusions. Scattered calcified pulmonary granulomata. Patchy groundglass and consolidative opacities are noted bilaterally. There is a nodular chronically opacified and dilated bronchus measuring 2.4 x 1.3 x 1.2 cm within the inferior segment lingula Comment slightly more opacified than the 2012 study. The central airways are patent. No pneumoperitoneum. Tiny hiatal hernia. Cholecystectomy. Unremarkable soft tissues. Degenerative changes of the shoulders and spine. Mild sclerosis involves a few anterolateral right-sided ribs suggestive of chronic fractures. No acute fracture identified. IMPRESSION: 1. No acute posttraumatic intrathoracic abnormality identified. 2. There are a few chronic appearing nondisplaced right-sided rib fractures. No acute fracture identified. 3. Cardiomegaly with small layering pleural effusions. 4. Patchy bilateral groundglass and consolidative opacities are suggestive of a nonspecific infectious or inflammatory pneumonitis. 5. Prior granulomatous disease. 6. 2.4 cm nodule of the inferior segment lingula correlates with a chronically opacified and dilated bronchus. 7. Aberrant right subclavian artery. ACT 112: Negative or not required by law. Electronically signed by: Roldan Hilario M.D. 11/12/2020 1:[address] 11/12/20 11:56 CT head/brain wo con CLINICAL HISTORY: right rib pain. Possible fall. COMPARISON STUDY: No previous studies for comparison. TECHNIQUE: Axial CT of the brain is performed from the vertex to the skull base. IV contrast was not administered for this examination. A dose lowering technique was utilized adhering to the principles of ALARA. CT DOSE: FINDINGS: No intra or extra-axial mass lesions are visualized. There is no CT evidence of acute cortical infarction. There is no evidence of midline shift. There is no acute hemorrhage. No acute depressed calvarial fractures are visualized. There are patchy white matter hypodensities likely on a small vessel basis. Diffuse atrophic changes of brain parenchyma are seen and associated with ex vacuo dilatation of ventricles. Small mucous polyp is seen in dependent portion of the right maxillary sinus. The rest of visualized paranasal sinuses and mastoid air cells are patent and well-aerated. IMPRESSION: No acute intracranial hemorrhage, no midline shift or space occupying lesions. Chronic small vessel ischemia and atrophic changes of brain parenchyma. ACT 112: Negative or not required by law. The above report was generated using voice recognition software. It may contain grammatical, syntax or spelling errors. Electronically signed by: Kate Love DO 11/12/2020 1:[address] 11/12/20 11:57 CT cervical spine wo con CT DOSE: 1578.19 mGycm CLINICAL HISTORY: 84 years-old Male with possible trauma. Acute head and neck injury status post trauma COMPARISON: CT head of same day TECHNIQUE: Multiple axial CT images of the cervical spine were obtained without contrast. A dose lowering technique was utilized adhering to the principles of ALARA. FINDINGS: Demineralized appearance of the bones. Severe intervertebral disc space narrowing C5-C6 and C6-C7. Multilevel bridging osteophytosis. Degenerative partial bony fusion at C3-C4. Severe multilevel facet arthrosis with degenerative partial fusion of the facet joints. Minimal superior endplate compression at T1, likely chronic. No acute fracture or subluxation of the cervical spine identified. Multilevel neural foraminal narrowing. Lung apices are clear without pneumothorax. No prevertebral edema. Calcified plaque of the carotid bulbs. IMPRESSION: 1. No acute fracture or subluxation of the cervical spine. 2. Minimal superior endplate compression deformity at T1 is technically age- indeterminate however favor to be chronic. 3. Multilevel degenerative changes as above. ACT 112: Negative or not required by law. The above report was generated using voice recognition software. It may contain grammatical, syntax or spelling errors. Electronically signed by: Roldan Hilario M.D. 11/12/2020 1:03 PM Discharge Plan Visit Data Chief Complaint: Abdominal Pain Stated Complaint: right side flank pain, sob, ab pain ED Provider: Devante Montana Discharge Problem: Contusion of flank, Abdominal pain, Fracture of ribs, multiple, Elevated troponin I level, Pulmonary edema Patient Disposition: Admitted As Inpatient Condition: Good Discharge Instructions Interventions: ED Discharge Assessment Last Done: 11/12/20 15:56
[2020-11-12 11:24] LABS: Hematocrit (blood only) 39.1 % (42-52); Hemoglobin 12.7 g/dL (14.0-18.0); Mean Corpuscular Hgb Conc 32.5 g/dL (32-36); Mean Corpuscular Volume 104.5 fL (80-100); Mean Platelet Volume 8.7 fL (7.4-10.4); Platelet Count 250 K/uL (130-400); RDW Coefficient of Variation 15.4 % (11.5-14.5); RDW Standard Deviation 58.7 fL (36.4-46.3); Red Blood Count 3.74 M/uL (4.7-6.1)
[2020-11-12 11:37] LABS: INR 0.9 (0.9-1.1); Partial Thromboplastin Ratio 0.8; Prothrombin Time 9.6 Seconds (9.0-12.0)
--- NOTE | 2020-11-12 11:37 | XRay Report ---
XR chest 1V portable HISTORY: 84 years-old Male SOB acute shortness of breath COMPARISON: Chest radiographs 12/04/2019 TECHNIQUE: Portable AP view of the chest FINDINGS: Cardiac silhouette is enlarged. Pulmonary vascular congestion. Patchy ill-defined bilateral airspace opacities. Trace pleural effusions. No pneumothorax. Degenerative changes of the shoulders and spine. IMPRESSION: 1. Cardiomegaly with pulmonary vascular congestion. 2. Patchy bilateral airspace opacities are suspicious for an infectious or inflammatory pneumonitis. 3. Trace pleural effusions. ACT 112: Negative or not required by law. The above report was generated using voice recognition software. It may contain grammatical, syntax o r spelling errors. Electronically signed by: Roldan Hilario M.D. 11/12/2020 11:36 AM
[2020-11-12 11:43] LABS: Basophils # (auto) 0.04 K/uL (0-0.2); Basophils % (auto) 0.4 %; Eosinophils # (auto) 0.05 K/uL (0-0.5); Eosinophils % (auto) 0.6 %; Immature Granulocytes # (auto) 0.57 K/uL (0.00-0.02); Immature Granulocytes % (auto) 6.3 %; Lymphocytes # (auto) 0.52 K/uL (1.2-3.4); Lymphocytes % (auto) 5.8 %; Monocytes # (auto) 0.49 K/uL (0.11-0.59); Monocytes % (auto) 5.4 %; Neutrophils # (auto) 7.33 K/uL (1.4-6.5); Neutrophils % (auto) 81.5 %
[2020-11-12 11:48] LABS: Albumin Level 2.9 gm/dl (3.4-5.0); BUN Creatinine Ratio 24.4 (10-20); Calcium 8.2 mg/dl (8.5-10.1); Creatinine Clr Calc Pharmacy 67.4 ml/min; Est GFR (African American) 87.6 ml/min; Est GFR (Non-African American) 75.6 ml/min; Potassium 4.5 mmol/L (3.5-5.1)
--- NOTE | 2020-11-12 11:51 | CT Scan Report ---
CT SCAN OF THE ABDOMEN AND PELVIS WITHOUT CONTRAST CLINICAL HISTORY: right flank pain and ecchymosis COMPARISON STUDY: No previous studies for comparison. TECHNIQUE: CT scan of the abdomen and pelvis was performed from the lung bases to the proximal femurs . Images are reviewed in the axial, sagittal, and coronal planes. IV contrast was not administered fo r this examination. A dose lowering technique was utilized adhering to the principles of ALARA. CT DOSE: 1005.96 mGycm FINDINGS: Lower chest: Small bilateral pleural effusion and mixed reticular and groundglass opacities at bilate ral bases. Liver: The unenhanced liver is normal in size, contour, and attenuation. There is no intrahepatic cortez iary ductal dilatation. Gallbladder: Is surgically absent Spleen: Is small with multiple calcifications of its parenchyma which could represent sequela from pr ior granulomatous process. Pancreas: Is slightly atrophic. No definite pancreatic lesions are seen. Adrenal glands: Unremarkable. Kidneys: The unenhanced kidneys are normal in size without hydronephrosis. No renal calculi are iden tified. 4.7 x 3.1 cm right renal cyst is seen. Bowel: Bowel loops are nondilated. Appendix shows normal morphology and gas filled. Diverticulosis of sigmoid colon is seen without evidence of diverticulitis. Rectum is probably dilated however evaluat ion of the lower pelvic region is limited due to significant beam hardening artifact from bilateral h ip prosthetic joints. Peritoneum: There is no intraperitoneal free air or abdominal ascites. Vasculature: The abdominal aorta is normal in course and caliber. Adenopathy: None. Pelvic viscera: Urinary bladder is adequately filled with urine. Prostate gland is not well seen due to beam hardening artifact from orthopedic hardware. Small bilateral fat-containing inguinal hernias are seen. Skeletal structures: Mild diffuse osteopenia. Multilevel degenerative changes of the spine. Minimal r etrolisthesis of the L1 on L2. Mild compression fracture deformity of the T12. No subcutaneous lesions. Healed fracture deformities of the lateral ninth and 10th ribs. IMPRESSION: 1. Mild compression fracture deformity of T12. Healing deformities of the right lower rib cage. 2. No acute intra-abdominal process. Nondilated loops of bowel. Normal appendix. Diverticulosis of s igmoid colon without evidence of diverticulitis. 3. Small bilateral pleural effusion and possible infiltrates at bilateral bases. Please correlate ab ove-mentioned findings with clinical presentation and prior history of pneumonia. 4. Large right renal cyst. 5. The rest of findings as above. ACT 112: Negative or not required by law. The above report was generated using voice recognition software. It may contain grammatical, syntax o r spelling errors. Electronically signed by: Kate Love DO 11/12/2020 11:50 AM
[2020-11-12 11:56] LABS: Albumin Globulin Ratio 0.9 (0.9-2); Bilirubin,Total 0.6 mg/dl (0.2-1); Globulin 3.4 gm/dl (2.5-4.0); Total Protein 6.3 gm/dl (6.4-8.2); Troponin I 0.149 ng/ml (0-0.045)
[2020-11-12 12:35] LABS: Appearance Urine Clear (Clear); Bilirubin Urine Negative (Negative); Blood Urine Negative (Negative); Color Urine Yellow; Glucose Urine UA Negative (Negative); Ketones Urine Negative (Negative); Leukocyte Esterase Urine Negative (Negative); Nitrite Urine Negative (Negative); Protein Urine Negative (Negative); Specific Gravity Urine 1.013 (1.000-1.030); Urobilinogen Urine Negative (Negative)
--- NOTE | 2020-11-12 13:05 | CT Scan Report ---
CT head/brain wo con CLINICAL HISTORY: right rib pain. Possible fall. COMPARISON STUDY: No previous studies for comparison. TECHNIQUE: Axial CT of the brain is performed from the vertex to the skull base. IV contrast was not administered for this examination. A dose lowering technique was utilized adhering to the principles of ALARA. CT DOSE: FINDINGS: No intra or extra-axial mass lesions are visualized. There is no CT evidence of acute cortical infarc tion. There is no evidence of midline shift. There is no acute hemorrhage. No acute depressed calvar ial fractures are visualized. There are patchy white matter hypodensities likely on a small vessel basis. Diffuse atrophic changes of brain parenchyma are seen and associated with ex vacuo dilatation of vent ricles. Small mucous polyp is seen in dependent portion of the right maxillary sinus. The rest of visualized paranasal sinuses and mastoid air cells are patent and well-aerated. IMPRESSION: No acute intracranial hemorrhage, no midline shift or space occupying lesions. Chronic small vessel ischemia and atrophic changes of brain parenchyma. ACT 112: Negative or not required by law. The above report was generated using voice recognition software. It may contain grammatical, syntax o r spelling errors. Electronically signed by: Kate Love DO 11/12/2020 1:04 PM
--- NOTE | 2020-11-12 13:05 | CT Scan Report ---
CT cervical spine wo con CT DOSE: 1578.19 mGycm CLINICAL HISTORY: 84 years-old Male with possible trauma. Acute head and neck injury status post tra purvi COMPARISON: CT head of same day TECHNIQUE: Multiple axial CT images of the cervical spine were obtained without contrast. A dose low ering technique was utilized adhering to the principles of ALARA. FINDINGS: Demineralized appearance of the bones. Severe intervertebral disc space narrowing C5-C6 and C6-C7. Mu ltilevel bridging osteophytosis. Degenerative partial bony fusion at C3-C4. Severe multilevel facet a rthrosis with degenerative partial fusion of the facet joints. Minimal superior endplate compression at T1, likely chronic. No acute fracture or subluxation of the cervical spine identified. Multilevel neural foraminal narrowing. Lung apices are clear without pneumothorax. No prevertebral edema. Calcified plaque of the carotid bu lbs. IMPRESSION: 1. No acute fracture or subluxation of the cervical spine. 2. Minimal superior endplate compression deformity at T1 is technically age-indeterminate however fav or to be chronic. 3. Multilevel degenerative changes as above. ACT 112: Negative or not required by law. The above report was generated using voice recognition software. It may contain grammatical, syntax o r spelling errors. Electronically signed by: Roldan Hilario M.D. 11/12/2020 1:03 PM
--- NOTE | 2020-11-12 13:20 | CT Scan Report ---
CT chest diagnostic wo con CT DOSE: 558.01 mGycm CLINICAL HISTORY: 84 years-old Male with right rib pain. Acute right-sided chest pain status post fa ll TECHNIQUE: Multiaxial CT images of the chest were performed without contrast. A dose lowering techni que was utilized adhering to the principles of ALARA. COMPARISON: CT abdomen and pelvis of same day, chest CT 12/23/2011 FINDINGS: Unremarkable thyroid. 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 Moderate atherosc lerotic plaque of the thoracic aorta. Moderate cardiomegaly with moderate coronary artery calcificati ons. There is no thoracic aortic aneurysm. Calcified mediastinal and hilar lymph nodes. Small layering pleural effusions. Scattered calcified pulmonary granulomata. Patchy groundglass and c onsolidative opacities are noted bilaterally. There is a nodular chronically opacified and dilated br onchus measuring 2.4 x 1.3 x 1.2 cm within the inferior segment lingula Comment slightly more opacified than the 2012 study. The central airways are patent. No pneumoperitoneum. Tiny hiatal hernia. Cholecystectomy. Unremarkable soft tissues. Degenerative cony nges of the shoulders and spine. Mild sclerosis involves a few anterolateral right-sided ribs suggest irwin of chronic fractures. No acute fracture identified. IMPRESSION: 1. No acute posttraumatic intrathoracic abnormality identified. 2. There are a few chronic appearing nondisplaced right-sided rib fractures. No acute fracture identi fied. 3. Cardiomegaly with small layering pleural effusions. 4. Patchy bilateral groundglass and consolidative opacities are suggestive of a nonspecific infectiou s or inflammatory pneumonitis. 5. Prior granulomatous disease. 6. 2.4 cm nodule of the inferior segment lingula correlates with a chronically opacified and dilated bronchus. 7. Aberrant right subclavian artery. ACT 112: Negative or not required by law. Electronically signed by: Roldan Hilario M.D. 11/12/2020 1:19 PM
--- NOTE | 2020-11-12 14:24 | Electrocardiogram Report ---
Test Reason : Blood Pressure : / mmHG Vent. Rate : 088 BPM Atrial Rate : 088 BPM P-R Int : 162 ms QRS Dur : 142 ms QT Int : 426 ms P-R-T Axes : 041 -38 113 degrees QTc Int : 515 ms Sinus rhythm with Premature atrial complexes Left axis deviation Left bundle branch block Abnormal ECG When compared with ECG of 04-DEC-2019 11:23, Premature atrial complexes are now Present Confirmed by Tra Sandoval ([id number]) on 11/12/2020 2:24:19 PM Referred By: REFERRED SELF Confirmed By:Tra Sandoval
[2020-11-12] MEDS ORDERED: FUROSEMIDE 40 MG/4 ML VIAL IV ONE ×2 (15:16→17:25)
[2020-11-12] MEDS ORDERED: ACETAMINOPHEN 325 MG TAB PO PRN (16:28)
[2020-11-12] MEDS ORDERED: NITROGLYCERIN SL 0.4 MG/TAB TAB SL PRN (16:28)
--- NOTE | 2020-11-12 16:52 | History & Physical Report ---
Date of Service November 12, 2020 Assessment & Plan (1) Acute on chronic diastolic CHF (congestive heart failure): (2) Elevated troponin: Plan: -Admit to telemetry -patient presenting from home with reports of generalized weakness, lower extremity edema, progressive RIVAS -in the ED, imaging shows BL pleural effusions, proBNP 4800 -?? consolidation noted on CT chest - no symptoms of pneumonia, afebrile, no leukocytosis - will check procalcitonin to be thorough -Start Lasix 40 mg IV twice daily -Strict I's and O's, low Na+ diet, daily weights -Echo 12/2019-EF 50 to 54%, mild aortic stenosis -troponin 0.149, EKG shows unchanged LBBB -mild troponin elevation due to demand ischemia in the setting of acute CHF, continue to trend troponin -Update echo -Cardiology consult, input appreciated (3) Intramuscular hematoma: Plan: -Patient noted to have bruising on the right side of the abdomen spreading to the right flank -Patient denies trauma history however has been performing some stretches over the past week -CT ABD/pelvis shows acute intramuscular hematoma within the abdominal wall of the right mid abdomen -Hgb stable at 12.7 -Hold aspirin for now -Monitor CBC (4) CIDP (chronic inflammatory demyelinating polyneuropathy): Plan: -Continue chronic prednisone (5) Hypertension: Plan: -BP controlled, continue lisinopril (6) Tinea pedis: Plan: -Topical clotrimazole ordered (7) DVT prophylaxis: Plan: -SCDs due to intramuscular hematoma Admission and Anticipated Discharge Date Admission Date: November 12, 2020 History of Present Illness Chief Complaint: Weakness, lower extremity edema, shortness of breath, abdominal bruising Primary Care Provider: Mai Jett MD 84-year-old male with PMH prediabetes, chronic diastolic CHF, HTN, LBBB, mild aortic stenosis, chronic inflammatory demyelinating polyneuropathy on chronic prednisone, and other problems listed below who presents to the ED for evaluation of generalized weakness, lower extremity edema, shortness of breath, abdominal bruising. Patient was seen by PCP on 11/03 for lower extremity edema. Lasix was increased to 40 mg daily for 7 days. There was not much improvement in the lower extremity edema. Patient also developed red patches on his left leg. He was started on Keflex for suspected cellulitis. MARTA was also ordered that was unremarkable. Today, patient showed his daughter a bruise that developed on his right abdomen a few days ago. It has been progressively getting worse and wrapping around to the right flank. Patient denies any trauma. He has been performing some stretching exercises. Patient reports over the past few weeks, he has felt increasing generalized weakness. Also worsening shortness of breath on exertion. He does not routinely weigh himself however feels as though he may have gained 10 pounds. Denies chest pain and palpitations. Reports some mild lightheadedness and dizziness with standing too quickly however no syncopal event. No other recent illnesses, fevers, chills. Denies abdominal pain, nausea, vomiting, diarrhea. No urinary symptoms. In the ED, imaging shows small bilateral pleural effusions, proBNP 4800, troponin 0.149. EKG shows an unchanged LBBB. CT ABD/pelvis shows acute intramuscular hematoma within the abdominal wall of the right mid abdomen. Hgb stable at 12.7. Allergies Allergy/AdvReac Type Severity Reaction Status Date / Time simvastatin AdvReac Mild leg pain Verified 11/12/20 12:05 tramadol [From Ultram] AdvReac Mild Hallucinati Verified 11/12/20 12:05 ng Home Medications Medication Instructions Recorded Confirmed Type alendronate 70 mg tablet (Fosamax) 70 mg PO WK 02/17/18 11/12/20 History ascorbic acid (vitamin C) 500 mg 500 mg PO QAM 02/17/18 11/12/20 History tablet cholecalciferol (vitamin D3) 25 1,000 unit PO QAM 02/17/18 11/12/20 History mcg (1,000 unit) tablet (Vitamin D3) cyanocobalamin (vitamin B-12) 1,000 mcg PO QAM 02/17/18 11/12/20 History 1,000 mcg tablet (Vitamin B-12) escitalopram oxalate 20 mg tablet 20 mg PO QPM 02/17/18 11/12/20 History (Lexapro) multivitamin 1 tab PO QAM 02/17/18 11/12/20 History Cbd Oil 1 dose SUBLINGUAL QAM 11/27/19 11/12/20 History famotidine 20 mg tablet (Acid 20 mg PO PM 12/04/19 11/12/20 History Survey Project Manager (famotidine)) furosemide 20 mg tablet (Lasix) 20 mg PO DAILY tab 12/04/19 11/12/20 History prednisone 20 mg tablet 15 mg PO DAILY 10/13/20 11/12/20 History acetaminophen 500 mg tablet 500 - 1,000 mg PO BID PRN 11/12/20 11/12/20 History (Tylenol Extra Strength) aspirin 81 mg tablet,delayed 81 mg PO QAM 11/12/20 11/12/20 History release bupropion HCl 150 mg 24 hr tablet, 150 mg PO QAM 11/12/20 11/12/20 History extended release cephalexin 250 mg capsule 250 mg PO QID 11/12/20 11/12/20 History lisinopril 10 mg tablet 10 mg PO QAM 11/12/20 11/12/20 History Past Med/Surg History Medical History Anxiety CIDP (chronic inflammatory demyelinating polyneuropathy) Eduard Grande; Dr. Guzman/ [facility] q 3 months Pt has numbness in feet/ankles, some numbness in fingers. On daily Prednisone 10mg . Depression GERD (gastroesophageal reflux disease) Hypertension Left bundle branch block (LBBB) Mild aortic stenosis Osteoporosis Surgical History History of anesthesia reaction SLOW TO WAKE UP-W GALL BLADDER 2018-[facility] History of cataract surgery RT/LT History of colonoscopy History of esophagogastroduodenoscopy (EGD) History of tooth extraction all teeth History of total left hip replacement Hx of cholecystectomy S/P laparoscopic cholecystectomy Status post right hip replacement (~12/2019) Family History Father Heart disease Other No family history of adverse response to anesthesia Social History Smoking Status: Never smoker Second Hand Exposure: No; Hx Alcohol Use: No Hx Substance Use: No Preferred Language: Khmer Communication Ability: Effective Visual Impairment: Limited Hearing Ability: Hard of Hearing Commercial Housekeeper Required: No Beliefs That Will Affect Care: None marital status: Current Living Situation: Spouse Other Information That Helps Us Care for You: No Feels Safe at Home: Yes Safety Concerns: Feels Safe At This Time Assistive Devices: Denture - Upper, Denture - Lower, Hearing Aid - Bilateral and Walker Review of Systems Review of Systems: ROS per HPI, all other systems reviewed and negative Physical Exam Constitutional: WD/WN, vitals as above Eyes: PERRL, conjunctivae normal, anicteric sclerae ENMT: external ear and nose normal, oropharynx normal Respiratory: normal respiratory effort; no respiratory distress Auscultation: + crackles (Bilateral bases) Cardiovascular: Rate/Rhythm: regular rate and regular rhythm Vessels: normal peripheral pulses Extremities: + edema (+2-3 edema BLE) Gastrointestinal (Abdomen): normal bowel sounds, soft, nontender, no hepatosplenomegaly Ecchymosis on the right side of the abdomen wrapping around to the right flank Musculoskeletal: no cyanosis or clubbing, extremities motor strength 5/5 Skin: areas of a tinea-like rash noted on left gay; dry skin noted BL feet Neurologic: PERRL, EOMI, accommodation nl, no face palsy, no dysarthria Psychiatric: A+Ox3, euthymic affect Results & Data Results & Data ([facility]) Vital Signs (Past 12 Hours) Vital Signs Temp Pulse Pulse Resp BP BP Pulse Ox 11/12/20 16:29 36.4 C L 94 H 14 148/83 H 94 11/12/20 14:00 89 19 159/97 H 95 11/12/20 13:30 99 H 20 162/102 H 94 11/12/20 13:00 94 H 22 144/89 H 94 11/12/20 12:45 92 H 20 93 11/12/20 12:00 93 H 19 11/12/20 11:38 93 H 27 H 11/12/20 11:24 90 25 H 11/12/20 10:14 102 H 18 107/66 96 Laboratory Results Short CBC 11/12/20 11/12/20 Range/Units 11:08 11:08 WBC 9.00 (4.8-10.8) K/uL Hgb 12.7 L (14.0-18.0) g/dL Hct 39.1 L (42-52) % Plt Count 250 (130-400) K/uL Troponin I 0.149 H* (0-0.045) ng/ml BMP 11/12/20 11:08 Sodium 139 Potassium 4.5 Chloride 106 Carbon Dioxide 30 BUN 23 H Creatinine 0.92 Glucose 117 H Calcium 8.2 L Cardiac Enzymes 11/12/20 Range/Units 11:08 Troponin I 0.149 H* (0-0.045) ng/ml Liver Function 11/12/20 Range/Units 11:08 Total Bilirubin 0.6 (0.2-1) mg/dl AST 33 (15-37) U/L ALT 32 (12-78) U/L Alkaline Phosphatase 50 (45-117) U/L Albumin 2.9 L (3.4-5.0) gm/dl Urine 11/12/20 Range/Units 12:25 Urine Color Yellow Urine Appearance Clear (Clear) Urine pH 6.0 (4.5-7.5) Ur Specific [place] 1.013 (1.000-1.030) Urine Protein Negative (Negative) Urine Glucose (UA) Negative (Negative) Diagnostic Findings Abdomen/Pelvis CT 11/12/20 10:55 CT SCAN OF THE ABDOMEN AND PELVIS WITHOUT CONTRAST CLINICAL HISTORY: right flank pain and ecchymosis COMPARISON STUDY: No previous studies for comparison. TECHNIQUE: CT scan of the abdomen and pelvis was performed from the lung bases to the proximal femurs. Images are reviewed in the axial, sagittal, and coronal planes. IV contrast was not administered for this examination. A dose lowering technique was utilized adhering to the principles of ALARA. CT DOSE: 1005.96 mGycm FINDINGS: Lower chest: Small bilateral pleural effusion and mixed reticular and groundglass opacities at bilateral bases. Liver: The unenhanced liver is normal in size, contour, and attenuation. There is no intrahepatic biliary ductal dilatation. Gallbladder: Is surgically absent Spleen: Is small with multiple calcifications of its parenchyma which could represent sequela from prior granulomatous process. Pancreas: Is slightly atrophic. No definite pancreatic lesions are seen. Adrenal glands: Unremarkable. Kidneys: The unenhanced kidneys are normal in size without hydronephrosis. No renal calculi are identified. 4.7 x 3.1 cm right renal cyst is seen. Bowel: Bowel loops are nondilated. Appendix shows normal morphology and gas filled. Diverticulosis of sigmoid colon is seen without evidence of diver ticulitis. Rectum is probably dilated however evaluation of the lower pelvic region is limited due to significant beam hardening artifact from bilateral hip prosthetic joints. Peritoneum: There is no intraperitoneal free air or abdominal ascites. Vasculature: The abdominal aorta is normal in course and caliber. Adenopathy: None. Pelvic viscera: Urinary bladder is adequately filled with urine. Prostate gland is not well seen due to beam hardening artifact from orthopedic hardware. Small bilateral fat-containing inguinal hernias are seen. Skeletal structures: Mild diffuse osteopenia. Multilevel degenerative changes of the spine. Minimal retrolisthesis of the L1 on L2. Mild compression fracture deformity of the T12. No subcutaneous lesions. Healed fracture deformities of the lateral ninth and 10th ribs. IMPRESSION: 1. Mild compression fracture deformity of T12. Healing deformities of the right lower rib cage. 2. No acute intra-abdominal process. Nondilated loops of bowel. Normal appendix. Diverticulosis of sigmoid colon without evidence of diverticulitis. 3. Small bilateral pleural effusion and possible infiltrates at bilateral bases. Please correlate above-mentioned findings with clinical presentation and prior history of pneumonia. 4. Large right renal cyst. 5. The rest of findings as above. ACT 112: Negative or not required by law. The above report was generated using voice recognition software. It may contain grammatical, syntax or spelling errors. Electronically signed by: Kate Love DO 11/12/2020 11:50 AM Chest X-Ray 11/12/20 10:57 XR chest 1V portable HISTORY: 84 years-old Male SOB acute shortness of breath COMPARISON: Chest radiographs 12/04/2019 TECHNIQUE: Portable AP view of the chest FINDINGS: Cardiac silhouette is enlarged. Pulmonary vascular congestion. Patchy ill- defined bilateral airspace opacities. Trace pleural effusions. No pneumothorax. Degenerative changes of the shoulders and spine. IMPRESSION: 1. Cardiomegaly with pulmonary vascular congestion. 2. Patchy bilateral airspace opacities are suspicious for an infectious or inflammatory pneumonitis. 3. Trace pleural effusions. ACT 112: Negative or not required by law. The above report was generated using voice recognition software. It may contain grammatical, syntax or spelling errors. Electronically signed by: Roldan Hilario M.D. 11/12/2020 11:[address] 11/12/20 11:56 CT chest diagnostic wo con CT DOSE: 558.01 mGycm CLINICAL HISTORY: 84 years-old Male with right rib pain. Acute right-sided chest pain status post fall TECHNIQUE: Multiaxial CT images of the chest were performed without contrast. A dose lowering technique was utilized adhering to the principles of ALARA. COMPARISON: CT abdomen and pelvis of same day, chest CT 12/23/2011 FINDINGS: Unremarkable thyroid. 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 Moderate atherosclerotic plaque of the thoracic aorta. Moderate cardiomegaly with moderate coronary artery calcifications. There is no thoracic aortic aneurysm. Calcified mediastinal and hilar lymph nodes. Small layering pleural effusions. Scattered calcified pulmonary granulomata. Patchy groundglass and consolidative opacities are noted bilaterally. There is a nodular chronically opacified and dilated bronchus measuring 2.4 x 1.3 x 1.2 cm within the inferior segment lingula Comment slightly more opacified than the 2012 study. The central airways are patent. No pneumoperitoneum. Tiny hiatal hernia. Cholecystectomy. Unremarkable soft tissues. Degenerative changes of the shoulders and spine. Mild sclerosis involves a few anterolateral right-sided ribs suggestive of chronic fractures. No acute fracture identified. IMPRESSION: 1. No acute posttraumatic intrathoracic abnormality identified. 2. There are a few chronic appearing nondisplaced right-sided rib fractures. No acute fracture identified. 3. Cardiomegaly with small layering pleural effusions. 4. Patchy bilateral groundglass and consolidative opacities are suggestive of a nonspecific infectious or inflammatory pneumonitis. 5. Prior granulomatous disease. 6. 2.4 cm nodule of the inferior segment lingula correlates with a chronically opacified and dilated bronchus. 7. Aberrant right subclavian artery. ACT 112: Negative or not required by law. Electronically signed by: Roldan Hilario M.D. 11/12/2020 1:[address] 11/12/20 11:56 CT head/brain wo con CLINICAL HISTORY: right rib pain. Possible fall. COMPARISON STUDY: No previous studies for comparison. TECHNIQUE: Axial CT of the brain is performed from the vertex to the skull base. IV contrast was not administered for this examination. A dose lowering technique was utilized adhering to the principles of ALARA. CT DOSE: FINDINGS: No intra or extra-axial mass lesions are visualized. There is no CT evidence of acute cortical infarction. There is no evidence of midline shift. There is no acute hemorrhage. No acute depressed calvarial fractures are visualized. There are patchy white matter hypodensities likely on a small vessel basis. Diffuse atrophic changes of brain parenchyma are seen and associated with ex vacuo dilatation of ventricles. Small mucous polyp is seen in dependent portion of the right maxillary sinus. The rest of visualized paranasal sinuses and mastoid air cells are patent and well-aerated. IMPRESSION: No acute intracranial hemorrhage, no midline shift or space occupying lesions. Chronic small vessel ischemia and atrophic changes of brain parenchyma. ACT 112: Negative or not required by law. The above report was generated using voice recognition software. It may contain grammatical, syntax or spelling errors. Electronically signed by: Kate Love DO 11/12/2020 1:[address] 11/12/20 11:57 CT cervical spine wo con CT DOSE: 1578.19 mGycm CLINICAL HISTORY: 84 years-old Male with possible trauma. Acute head and neck injury status post trauma COMPARISON: CT head of same day TECHNIQUE: Multiple axial CT images of the cervical spine were obtained without contrast. A dose lowering technique was utilized adhering to the principles of ALARA. FINDINGS: Demineralized appearance of the bones. Severe intervertebral disc space narrowing C5-C6 and C6-C7. Multilevel bridging osteophytosis. Degenerative partial bony fusion at C3-C4. Severe multilevel facet arthrosis with degenerative partial fusion of the facet joints. Minimal superior endplate compression at T1, likely chronic. No acute fracture or subluxation of the cervical spine identified. Multilevel neural foraminal narrowing. Lung apices are clear without pneumothorax. No prevertebral edema. Calcified plaque of the carotid bulbs. IMPRESSION: 1. No acute fracture or subluxation of the cervical spine. 2. Minimal superior endplate compression deformity at T1 is technically age- indeterminate however favor to be chronic. 3. Multilevel degenerative changes as above. ACT 112: Negative or not required by law. The above report was generated using voice recognition software. It may contain grammatical, syntax or spelling errors. Electronically signed by: Roldan Hilario M.D. 11/12/2020 1:03 PM Code Status & VTE Plan Code Status Patient is a full code as per my discussion with him. VTE Prophylaxis Plan VTE Prophylaxis will be ordered: Yes Supervising Physician Co-Signing Physician Notes I saw this patient with the Nurse Practitioner, I participated in the history, physical, review of systems, and physical exam. I reviewed the medications with the patient and the Nurse Practitioner and helped reconcile the medications. I helped take a detailed family and social history as well. I formulated the assessment and plan personally with the Nurse Practitioner went over it with the patient. ROS-No Headache, No Visual Changes, No Nausea, No Vomiting, No Fever, No Chills, No Neck Pain or Stiffness, No Chest Pain, No Palpitations, No SOB, No RIVAS, No Cough, No Sputum, No Wheezing, No Abdominal Pain, No Diarrhea, No Hematemesis, No Hemoptysis, No Unexpected Weight Loss, No Flank pain, No Melena, No Hematochezia, No Frequency, No Urgency, No Burning, No Hematuria, No Rashes, No Diaphoresis. Appetite is Low, +LE Swelling, Dry feet c red scales/Plaques Physical Exam Gen-AAO x 3, NAD, Afebrile, obese. pleasant Head-NCAT, EOMI, PERRLA, Anicteric Sclera, No Posterior Pharyngeal Erythema Neck-Supple, No JVD, No Thyromegaly, No Masses, No LAD, No Bruits Lungs-Clear to Auscultation Bilaterally, No Rales, No Rhonchi, No Wheezing, No Crepitus Chest-No S4, +S1, +S2, No S3, No Murmurs, No Rubs, No Gallops, No Ectopy Abdomen-Soft, Bowel Sounds Present, Non Tender, Non Distended, No Hepatomegaly, No Splenomegaly, No Palpable Masses, No Rebound, No Rigidity, No Guarding Musculoskeletal-Full Range of Motion Bilaterally, No CVAT Extremities-No Cyanosis, No Clubbing, + Edema, +Tinea like rash B/L Feet Nuero-Cranial Nerves II-XII grossly intact, Motor WNL, DTRs WNL, Strength WNL, Non Focal Psych-Normal Mood
[2020-11-12] MEDS: ESCITALOPRAM OXALATE 20 MG TAB PO SCH (20:40)
[2020-11-12] MEDS: FAMOTIDINE 20 MG TAB PO SCH (20:40)
[2020-11-12] MEDS: CLOTRIMAZOLE 1% CR 15 GM TUBE EXT SCH (20:40)
[2020-11-12] MEDS ORDERED: HEPARIN SOD 5,000 UNIT/0.5 ML VIAL SQ SCH (22:00)
[2020-11-13 06:03] LABS: Hematocrit (blood only) 38.3 % (42-52); Hemoglobin 12.5 g/dL (14.0-18.0); Mean Corpuscular Hemoglobin 34.2 pg (25-34); Mean Corpuscular Hgb Conc 32.6 g/dL (32-36); Mean Corpuscular Volume 104.6 fL (80-100); Mean Platelet Volume 8.6 fL (7.4-10.4); Platelet Count 278 K/uL (130-400); RDW Coefficient of Variation 15.2 % (11.5-14.5); RDW Standard Deviation 58.2 fL (36.4-46.3); Red Blood Count 3.66 M/uL (4.7-6.1); White Blood Count 7.02 K/uL (4.8-10.8)
[2020-11-13 06:31] LABS: BUN Creatinine Ratio 22.6 (10-20); Calcium 8.3 mg/dl (8.5-10.1); Creatinine Clr Calc Pharmacy 58.9 ml/min; Est GFR (African American) 75.5 ml/min; Est GFR (Non-African American) 65.2 ml/min; Magnesium 2.4 mg/dl (1.8-2.4); Potassium 4.3 mmol/L (3.5-5.1)
[2020-11-13] MEDS ORDERED: FUROSEMIDE 40 MG/4 ML VIAL IV SCH (09:00)
[2020-11-13 09:05] LABS: Ferritin 199.7 ng/ml (8-388)
[2020-11-13] MEDS: buPROPion XL 150 MG TABCR PO SCH (09:19)
[2020-11-13] MEDS: CLOTRIMAZOLE 1% CR 15 GM TUBE EXT SCH ×2 (09:19→20:37)
[2020-11-13] MEDS: CHOLECALCIFEROL 1,000 UNITS 25 MCG TAB PO SCH (09:19)
[2020-11-13] MEDS: CYANOCOBALAMIN 500 MCG TABLET (VITAMIN B-12) PO SCH (09:20)
[2020-11-13] MEDS: lisinopril 10 MG TAB PO SCH (09:20)
[2020-11-13] MEDS: predniSONE 5 MG TAB PO SCH (09:20)
--- NOTE | 2020-11-13 09:52 | Electrocardiogram Report ---
Test Reason : Blood Pressure : / mmHG Vent. Rate : 088 BPM Atrial Rate : 122 BPM P-R Int : 000 ms QRS Dur : 144 ms QT Int : 454 ms P-R-T Axes : 000 -47 103 degrees QTc Int : 549 ms Sinus rhythm with frequent Premature atrial complexes with premature ventricular or aberrantly conduc angie complexes Left axis deviation Intermittent Left bundle branch block Abnormal ECG When compared with ECG of 12-NOV-2020 11:08, Premature ventricular complexes are now Present LBBB now intermittent Confirmed by Tra Sandoval ([id number]) on 11/13/2020 9:52:08 AM Referred By: REFERRED SELF Confirmed By:Tra Sandoval
--- NOTE | 2020-11-13 10:19 | Cardiology Consultation ---
Date of Consultation November 13, 2020 Assessment & Plan (1) Acute on chronic heart failure with reduced ejection fraction and diastolic dysfunction: (2) Left ventricular hypertrophy: (3) Left bundle branch block (LBBB): (4) Premature atrial complexes: (5) Aortic stenosis: Recommend addition of metoprolol 25 mg twice daily to improve heart rate and blood pressure control. Continue IV diuretic therapy with attention to daily weight, GFR, electrolytes, and fluid balance. Echocardiogram demonstrating severe left ventricular hypertrophy and mild to moderately reduced LV systolic function. Compared to prior echocardiogram LV ejection fraction has declined. I have concerns regarding possible infiltrative cardiomyopathy. Further evaluation with SPEP, immunofixation, UPEP, and serum light chains ordered. Mildly elevated troponin secondary to acute decompensated heart failure. No i ndication for IV anticoagulation currently. History of Present Illness Reason for Consultation: CHF Requesting Physician: Dr. 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 X-ray demonstrating pulmonary vascular congestion. Cardiology consultation requested for management of congestive heart failure. Patient reports chronic dyspnea on exertion. Lasix recently titrated to 40 mg daily 11/03/2020 due to edema. Patient noted to have red patches primarily involving his left lower extremity. He was treated for suspected cellulitis with Keflex. Denies any trauma or injury however, a right-sided ecchymosis with hematoma per CT noted. Currently resting comfortably. Denies orthopnea or PND. Edema has improved. Fluid balance negative approximately 403 cc. Telemetry reveals sinus rhythm and sinus tachycardia with frequent ectopy. Blood pressure is labile. Bedside 2D transthoracic echocardiogram demonstrating moderate left ventricular systolic function and severe concentric left ventricular hypertrophy. Allergies Allergy/AdvReac Type Severity Reaction Status Date / Time simvastatin AdvReac Mild leg pain Verified 11/12/20 12:05 tramadol [From Ultram] AdvReac Mild Hallucinati Verified 11/12/20 12:05 ng Home Medications Medication Instructions Recorded Confirmed Type alendronate 70 mg tablet (Fosamax) 70 mg PO WK 02/17/18 11/12/20 History ascorbic acid (vitamin C) 500 mg 500 mg PO QAM 02/17/18 11/12/20 History tablet cholecalciferol (vitamin D3) 25 1,000 unit PO QAM 02/17/18 11/12/20 History mcg (1,000 unit) tablet (Vitamin D3) cyanocobalamin (vitamin B-12) 1,000 mcg PO QAM 02/17/18 11/12/20 History 1,000 mcg tablet (Vitamin B-12) escitalopram oxalate 20 mg tablet 20 mg PO QPM 02/17/18 11/12/20 History (Lexapro) multivitamin 1 tab PO QAM 02/17/18 11/12/20 History Cbd Oil 1 dose SUBLINGUAL QAM 11/27/19 11/12/20 History famotidine 20 mg tablet (Acid 20 mg PO PM 12/04/19 11/12/20 History Director Of Informatics (famotidine)) furosemide 20 mg tablet (Lasix) 20 mg PO DAILY tab 12/04/19 11/12/20 History prednisone 20 mg tablet 15 mg PO DAILY 10/13/20 11/12/20 History acetaminophen 500 mg tablet 500 - 1,000 mg PO BID PRN 11/12/20 11/12/20 History (Tylenol Extra Strength) aspirin 81 mg tablet,delayed 81 mg PO QAM 11/12/20 11/12/20 History release bupropion HCl 150 mg 24 hr tablet, 150 mg PO QAM 11/12/20 11/12/20 History extended release cephalexin 250 mg capsule 250 mg PO QID 11/12/20 11/12/20 History lisinopril 10 mg tablet 10 mg PO QAM 11/12/20 11/12/20 History Patient History Medical History Anxiety CIDP (chronic inflammatory demyelinating polyneuropathy) Eduard Grande; Dr. Guzman/ Suzanne Puente q 3 months Pt has numbness in feet/ankles, some numbness in fingers. On daily Prednisone 10mg . Depression GERD (gastroesophageal reflux disease) Hypertension Left bundle branch block (LBBB) Mild aortic stenosis Osteoporosis Surgical History History of anesthesia reaction SLOW TO WAKE UP-W GALL BLADDER 2018-[facility] History of cataract surgery RT/LT History of colonoscopy History of esophagogastroduodenoscopy (EGD) History of tooth extraction all teeth History of total left hip replacement Hx of cholecystectomy S/P laparoscopic cholecystectomy Status post right hip replacement (~12/2019) Family History Father Heart disease Other No family history of adverse response to anesthesia Social History Smoking Status: Never smoker Second Hand Exposure: No; Hx Alcohol Use: No Hx Substance Use: No Preferred Language: Lithuanian Communication Ability: Effective Visual Impairment: Limited Hearing Ability: Hard of Hearing 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 Personal Property Required: No Beliefs That Will Affect Care: None marital status: Current Living Situation: Spouse Other Information That Helps Us Care for You: No Feels Safe at Home: Yes Safety Concerns: Feels Safe At This Time Assistive Devices: Denture - Upper, Denture - Lower, Hearing Aid - Bilateral and Walker Review of Systems Review of Systems: All systems reviewed & are unremarkable except as noted in Subjective Physical Exam Constitutional: well nourished and + obese; not ill appearing Respiratory: no respiratory distress and no labored breathing Auscultation: + diminished lung sounds (Bases bilateral) and + rales (Bases bilateral); no rhonchi and no wheezes Cardiovascular: Rate/Rhythm: regular rate, regular rhythm and + tachycardic (Borderline) Heart Sounds: normal S1, normal S2 and + murmur (1/6 systolic ejection murmur heard best at the base) Vessels: radial pulses present Gastrointestinal (Abdomen): Inspection/Auscultation: normal bowel sounds; abdomen not distended and no abdominal edema Percussion/Palpation: abdomen soft; abdomen nontender, no guarding and abdomen not rigid Musculoskeletal: Left lower extremity scaling and erythema involving the foot and ankle. Neurologic: CN's II-XI intact bilaterally and moves all extremities; no focal motor deficits Motor/Sensory: no tremor Psychiatric: Cognition: + recent memory not intact Insight: + limited insight Results & Data ([facility]) Vital Signs (Past 12 Hours) Vital Signs Temp Pulse Pulse Resp BP Pulse Ox 11/13/20 07:57 37.1 C 98 H 20 176/73 H 92 11/13/20 03:34 36.9 C 88 20 118/80 94 11/12/20 23:22 36.8 C 88 18 112/76 92 11/12/20 22:20 94 H ECG Additional Comments: ECG: Sinus rhythm with frequent premature supraventricular complexes, left bundle branch block
--- NOTE | 2020-11-13 11:27 | Hospitalist Progress Note ---
Date of Service November 13, 2020 Assessment & Plan (1) Acute on chronic heart failure with reduced ejection fraction and diastolic dysfunction: (2) Intramuscular hematoma: Plan: #. Acute on chronic diastolic CHF (congestive heart failure): #. Elevated troponin: Pt came in with c/o generalized weakness, lower extremity edema, progressive RIVAS Admitting pBNP was 4862 Admitting CXR: pul. vascular congestion w/ trace pleural effusion. Also concern for b/l patchy airspace disease. Admitting CT chest: Cardiomegaly with small layering pleural effusions. Patchy bilateral groundglass and consolidative opacities are suggestive of a nonspecifi c infectious or inflammatory pneumonitis. CT head/ CT C Spine: no acute findings Cardiology on board: added metoprolol 25 mg BD, c/w iv diuresis, monitor electrolytes, Echo 12/2019-EF 50 to 54%; 11/13 ECHO: EF 40-45%, severe concentric LVH, moderate left ventricular systolic dysfunction. Concern for possible infiltrative cardiomyopathy, hence labs are ordered (SPEP, UPEP, Serum light chain, immunofixation) per cardiology Flat troponin at 0.14 2/2 acute decompensated heart failure. Cardiology aware, no iv anticoagulation currently. C/w iv diuresis, monitor daily clinical and labs for electrolytes. #. Intramuscular hematoma -Patient noted to have bruising on the right side of the abdomen spreading to the right flank -Patient denies trauma history however has been performing some stretches over the past week -CT ABD/pelvis shows acute intramuscular hematoma within the abdominal wall of the right mid abdomen -Hgb stable at 12.7; Iron profile wnl -Hold aspirin for now -Monitor CBC #. CIDP (chronic inflammatory demyelinating polyneuropathy): -Continue chronic prednisone #. Hypertension: -BP controlled, continue lisinopril #. Tinea pedis: -c/w Topical clotrimazole #. DVT prophylaxis: -SCDs due to intramuscular hematoma Admission and Anticipated Discharge Date Admission Date: November 12, 2020 Subjective Patient was lying semi-upright in bed, NAD, on RA. Patient denies Headache, Dizziness, Fever, Chills, Sore throat, Cough, Chest pain, palpitations, Belly pain, pain/burning while passing urine. Last Bowel movement [yesterday]. No issues overnight. Pt reports improvement in his SOB. Physical Exam Physical Exam: GENERAL: Alert and oriented x3. NAD, on RA. HEENT: No pallor, no icterus. Pupils equal, round and reactive to light. Oral mucosa moist. NECK: No JVD, no neck masses. HEART: S1 and S2 heard. Regular rate and rhythm. No murmur, no gallop. RESPIRATORY SYSTEM: Normal AP diameter. No accessory muscle use. No wheezing, bibasilar crackles. ABDOMEN: Soft, bowel sounds present, nontender, no distention. large bruise starting almost midline on Rt side of belly expanding to lateral Rt flank. CENTRAL NERVOUS SYSTEM: Alert and oriented x3. No facial droop. Speech is clear. Obeys simple commands. Moves extremities. EXTREMITIES: No edema, no erythema seen. Rash of tinea pedis b/l feet noted. Results & Data Results & Data ([facility]) Vital Signs (Past 12 Hours) Vital Signs Temp Pulse Resp BP Pulse Ox 11/13/20 07:57 37.1 C 98 H 20 176/73 H 92 11/13/20 03:34 36.9 C 88 20 118/80 94
[2020-11-13] MEDS: METOPROLOL TARTRATE 25 MG TAB PO SCH ×2 (12:04→20:34)
[2020-11-13] MEDS: FAMOTIDINE 20 MG TAB PO SCH (20:31)
[2020-11-13] MEDS: ESCITALOPRAM OXALATE 20 MG TAB PO SCH (20:31)
[2020-11-13] MEDS: FUROSEMIDE 40 MG in SYRINGE 0 ML IV SCH (20:50)
[2020-11-14 06:48] LABS: Hematocrit (blood only) 38.7 % (42-52); Hemoglobin 12.8 g/dL (14.0-18.0); Mean Corpuscular Hemoglobin 33.8 pg (25-34); Mean Corpuscular Hgb Conc 33.1 g/dL (32-36); Mean Corpuscular Volume 102.1 fL (80-100); Mean Platelet Volume 8.7 fL (7.4-10.4); Platelet Count 263 K/uL (130-400); RDW Standard Deviation 55.9 fL (36.4-46.3); Red Blood Count 3.79 M/uL (4.7-6.1); White Blood Count 8.27 K/uL (4.8-10.8)
[2020-11-14 07:32] LABS: BUN Creatinine Ratio 27.1 (10-20); Creatinine Clr Calc Pharmacy 55.7 ml/min; Est GFR (African American) 71.4 ml/min; Est GFR (Non-African American) 61.6 ml/min; Magnesium 2.3 mg/dl (1.8-2.4); Phosphorus 3.2 mg/dl (2.5-4.9); Potassium 3.6 mmol/L (3.5-5.1)
--- NOTE | 2020-11-14 07:54 | Electrocardiogram Report ---
Test Reason : Blood Pressure : / mmHG Vent. Rate : 071 BPM Atrial Rate : 071 BPM P-R Int : 174 ms QRS Dur : 150 ms QT Int : 496 ms P-R-T Axes : 035 103 -62 degrees QTc Int : 538 ms Sinus rhythm with Premature atrial complexes Left bundle branch block Abnormal ECG When compared with ECG of 13-NOV-2020 05:29, QRS axis Shifted right T wave inversion now evident in Inferior leads Confirmed by Tra Sandoval ([id number]) on 11/14/2020 7:54:35 AM Referred By: REFERRED SELF Confirmed By:Tra Sandoval
[2020-11-14] MEDS: CHOLECALCIFEROL 1,000 UNITS 25 MCG TAB PO SCH (08:20)
[2020-11-14] MEDS: buPROPion XL 150 MG TABCR PO SCH (08:20)
[2020-11-14] MEDS: CLOTRIMAZOLE 1% CR 15 GM TUBE EXT SCH ×2 (08:21→20:19)
[2020-11-14] MEDS: CYANOCOBALAMIN 500 MCG TABLET (VITAMIN B-12) PO SCH (08:22)
[2020-11-14] MEDS: lisinopril 10 MG TAB PO SCH (08:25)
[2020-11-14] MEDS: METOPROLOL TARTRATE 25 MG TAB PO SCH ×2 (08:25→19:59)
[2020-11-14] MEDS: predniSONE 5 MG TAB PO SCH (08:26)
[2020-11-14] MEDS ORDERED: POTASSIUM CHLORIDE 20 MEQ/15 ML UDC PO STA (09:00)
[2020-11-14] MEDS: ASPIRIN 81 MG ECTAB PO SCH (09:02)
[2020-11-14] MEDS: FUROSEMIDE 40 MG in SYRINGE 0 ML IV SCH ×2 (09:40→20:23)
--- NOTE | 2020-11-14 12:15 | Cardiology Progress Note ---
Date of Service November 14, 2020 Assessment & Plan (1) Acute on chronic heart failure with reduced ejection fraction and diastolic dysfunction: Plan: Patient responding to IV diuretics. Blood pressures down since beginning diuretics and beta-scar. Dyspnea and lower extremity edema improving Plan: Hold IV diuretics after p.m. dose today, reduce lisinopril to 5 mg/day given lower blood pressures and aortic stenosis. Continue metoprolol dosing (2) Left ventricular hypertrophy: (3) Left bundle branch block (LBBB): (4) Premature atrial complexes: (5) Aortic stenosis: Plan: Mildly elevated troponin secondary to acute decompensated heart failure. No indication for IV anticoagulation currently with relative contraindications given spontaneous abdominal hematoma Admission and Anticipated Discharge Date Admission Date: November 13, 2020 Subjective Patient was seen and examined, chart, medications, telemetry reviewed. No acute complaints this morning. Subjectively less dyspneic Weight down possibly 3 kg since admission with documented diuresis No dizziness or lightheadedness no chest pain. Telemetry reveals sinus rhythm with left bundle branch block configuration and frequent atrial ectopy but no rhythm Review of Systems Review of Systems: All systems reviewed & are unremarkable except as noted in Subjective Physical Exam Constitutional: + obese; no acute distress Eyes: PERRL, conjunctivae normal, anicteric sclerae ENMT: external ear and nose normal, oropharynx normal Neck: trachea midline, no thyromegaly Respiratory: normal respiratory effort, lungs clear to auscultation Cardiovascular: Rate/Rhythm: regular rate and regular rhythm Heart Sounds: normal S1, normal S2 and + murmur (Grade 1/6 systolic); no gallop Palpation: normal PMI Vessels: normal carotid upstroke and radial pulses present; no JVD and no carotid bruit Extremities: + edema (1+) Gastrointestinal (Abdomen): normal bowel sounds, soft, nontender, no hepatosplenomegaly Musculoskeletal: no cyanosis or clubbing, extremities motor strength 5/5 Skin: no rashes, warm and dry Neurologic: PERRL, EOMI, accommodation nl, no face palsy, no dysarthria Psychiatric: A+Ox3, euthymic affect Results & Data ([facility]) Vital Signs (Past 12 Hours) Vital Signs Temp Pulse Resp BP Pulse Ox 11/14/20 11:58 36.4 C L 69 20 95/62 L 96 11/14/20 07:45 36.6 C 97 H 20 121/85 92 11/14/20 04:10 36.6 C 96 H 19 122/72 90 Laboratory Results Laboratory Results - last 24 hr 11/14/20 11/14/20 11/14/20 06:15 06:15 06:15 WBC 8.27 RBC 3.79 L Hgb 12.8 L Hct 38.7 L MCV 102.1 H MCH 33.8 MCHC 33.1 RDW Std Deviation 55.9 H RDW Coeff of Anupama 15.0 H Plt Count 263 MPV 8.7 Sodium 136 Potassium 3.6 D Chloride 99 Carbon Dioxide 31 Anion Gap 5.0 BUN 30 H Creatinine 1.09 Est Cr Clr Drug Dosing 55.7 Est GFR ( Amer) 71.4 Est GFR (Non-Af Amer) 61.6 BUN/Creatinine Ratio 27.1 H Glucose 88 Calcium 8.0 L Phosphorus 3.2 Magnesium 2.3 Serum Immunofixation Pending
[2020-11-14] MEDS ORDERED: POTASSIUM CHLORIDE CRTAB 20 MEQ TABCR PO ONE (12:27)
--- NOTE | 2020-11-14 13:04 | Hospitalist Progress Note ---
Date of Service November 14, 2020 Assessment & Plan (1) Acute on chronic heart failure with reduced ejection fraction and diastolic dysfunction: (2) Intramuscular hematoma: Plan: #. Acute on chronic diastolic CHF (congestive heart failure): #. Elevated troponin: Pt came in with c/o generalized weakness, lower extremity edema, progressive RIVAS Admitting pBNP was 4862 Admitting CXR: pul. vascular congestion w/ trace pleural effusion. Also concern for b/l patchy airspace disease. Admitting CT chest: Cardiomegaly with small layering pleural effusions. Patchy bilateral groundglass and consolidative opacities are suggestive of a nonspecifi c infectious or inflammatory pneumonitis. CT head/ CT C Spine: no acute findings Cardiology on board: added metoprolol 25 mg BD, c/w iv diuresis, monitor electrolytes, Echo 12/2019-EF 50 to 54%; 11/13 ECHO: EF 40-45%, severe concentric LVH, moderate left ventricular systolic dysfunction. Concern for possible infiltrative cardiomyopathy, hence labs are ordered (SPEP, UPEP, Serum light chain, immunofixation) per cardiology Flat troponin at 0.14 2/2 acute decompensated heart failure. Cardiology aware, no iv anticoagulation currently. C/w iv diuresis, talked with cardiology over the phone. plan to transition to oral diuresis by evening per Card. His blood pressure has been little soft after being on iv diuresis monitor daily clinical and labs for electrolytes. #. Intramuscular hematoma -Patient noted to have bruising on the right side of the abdomen spreading to the right flank -Patient denies fallhistory however has been performing some stretches over the past week -CT ABD/pelvis shows acute intramuscular hematoma within the abdominal wall of the right mid abdomen -Hgb stable at 12.8; Iron profile wnl -Started aspirin today, will continue to monitor. Will put him on Heparin subQ tomorrow AM if the bruise stays same -Monitor CBC #. CIDP (chronic inflammatory demyelinating polyneuropathy): -Continue chronic prednisone #. Hypertension: -BP soft -monitor vitals per unit routine -Skip/hold BP meds if SBP<90 mmHg #. Tinea pedis: -c/w Topical clotrimazole #. DVT prophylaxis: -SCDs due to intramuscular hematoma Disposition: After optimization of his cardiac meds, he will be dishcarged to home w/ HH PT (per PT recommendation) unless new problem arise. Admission and Anticipated Discharge Date Admission Date: November 13, 2020 Subjective Patient was sitting up in chair, NAD, on RA. Patient denies Headache, Dizziness, Fever, Chills, Sore throat, Cough, Chest pain, palpitations, Belly pain, pain/burning while passing urine. Last Bowel movement [in AM]. No issues overnight. Pt reports feeling better. Per RN, no issues overnight. Physical Exam Physical Exam: GENERAL: Alert and oriented x3. NAD, on RA. HEENT: No pallor, no icterus. Pupils equal, round and reactive to light. Oral mucosa moist. NECK: No JVD, no neck masses. HEART: S1 and S2 heard. Regular rate and rhythm. No murmur, no gallop. RESPIRATORY SYSTEM: Normal AP diameter. No accessory muscle use. No wheezing, bibasilar crackles. ABDOMEN: Soft, bowel sounds present, nontender, no distention. large bruise starting almost midline on Rt side of belly expanding to lateral Rt flank. CENTRAL NERVOUS SYSTEM: Alert and oriented x3. No facial droop. Speech is clear. Obeys simple commands. Moves extremities. EXTREMITIES: 1+ edema, no erythema seen. Rash of tinea pedis b/l feet noted. Results & Data Results & Data ([facility]) Vital Signs (Past 12 Hours) Vital Signs Temp Pulse Resp BP Pulse Ox 11/14/20 11:58 36.4 C L 69 20 95/62 L 96 11/14/20 07:45 36.6 C 97 H 20 121/85 92 11/14/20 04:10 36.6 C 96 H 19 122/72 90
[2020-11-14] MEDS: ESCITALOPRAM OXALATE 20 MG TAB PO SCH (20:17)
[2020-11-14] MEDS: FAMOTIDINE 20 MG TAB PO SCH (20:18)
[2020-11-15 05:28] LABS: Hematocrit (blood only) 37.4 % (42-52); Hemoglobin 12.6 g/dL (14.0-18.0); Mean Corpuscular Hemoglobin 34.2 pg (25-34); Mean Corpuscular Hgb Conc 33.7 g/dL (32-36); Mean Corpuscular Volume 101.6 fL (80-100); Mean Platelet Volume 8.5 fL (7.4-10.4); Platelet Count 255 K/uL (130-400); RDW Coefficient of Variation 14.8 % (11.5-14.5); RDW Standard Deviation 54.3 fL (36.4-46.3); Red Blood Count 3.68 M/uL (4.7-6.1); White Blood Count 9.65 K/uL (4.8-10.8)
[2020-11-15 06:02] LABS: Calcium 8.3 mg/dl (8.5-10.1); Creatinine Clr Calc Pharmacy 50.6 ml/min; Est GFR (African American) 63.5 ml/min; Est GFR (Non-African American) 54.8 ml/min; Magnesium 2.5 mg/dl (1.8-2.4)
[2020-11-15] MEDS: ASPIRIN 81 MG ECTAB PO SCH (08:24)
[2020-11-15] MEDS: CLOTRIMAZOLE 1% CR 15 GM TUBE EXT SCH ×2 (08:24→20:10)
[2020-11-15] MEDS: buPROPion XL 150 MG TABCR PO SCH (08:24)
[2020-11-15] MEDS: CHOLECALCIFEROL 1,000 UNITS 25 MCG TAB PO SCH (08:24)
[2020-11-15] MEDS: CYANOCOBALAMIN 500 MCG TABLET (VITAMIN B-12) PO SCH (08:25)
[2020-11-15] MEDS: predniSONE 5 MG TAB PO SCH (08:25)
[2020-11-15] MEDS: METOPROLOL TARTRATE 25 MG TAB PO SCH ×2 (09:36→20:12)
[2020-11-15] MEDS: lisinopril 5 MG TAB PO SCH (10:01)
--- NOTE | 2020-11-15 11:47 | Cardiology Progress Note ---
Date of Service November 15, 2020 Assessment & Plan (1) Acute on chronic heart failure with reduced ejection fraction and diastolic dysfunction: Plan: Patient responding to IV diuretics. Blood pressures down since beginning diuretics and beta-scar. Dyspnea and lower extremity edema improving Plan: Patient appears clinically stable would resume furosemide orally at 40 mg/day continue metoprolol 25 mg twice per day and reduce dose lisinopril to 5 mg/day Patient has appointment with cardiology on 12/18/2020 (2) Left ventricular hypertrophy: (3) Left bundle branch block (LBBB): (4) Premature atrial complexes: (5) Aortic stenosis: Plan: Mildly elevated troponin secondary to acute decompensated heart failure. No indication for IV anticoagulation currently with relative contraindications given spontaneous abdominal hematoma Admission and Anticipated Discharge Date Admission Date: November 13, 2020 Subjective Patient was seen and examined, chart, medications, telemetry reviewed. Patient denies worsening shortness of breath chest pains tachypalpitations or dizziness. Specifically denies any abdominal or back pain. No fevers or chills. No arrhythmias on telemetry Review of Systems Review of Systems: All systems reviewed & are unremarkable except as noted in Subjective Physical Exam Constitutional: + obese; no acute distress Eyes: PERRL, conjunctivae normal, anicteric sclerae ENMT: external ear and nose normal, oropharynx normal Neck: trachea midline, no thyromegaly Respiratory: normal respiratory effort, lungs clear to auscultation Cardiovascular: Rate/Rhythm: regular rate and regular rhythm Heart Sounds: normal S1, normal S2 and + murmur (Grade 1/6 systolic); no gallop Palpation: normal PMI Vessels: normal carotid upstroke and radial pulses present; no JVD and no carotid bruit Extremities: + edema (Trace only) Gastrointestinal (Abdomen): normal bowel sounds, soft, nontender, no hepatosplenomegaly Musculoskeletal: no cyanosis or clubbing, extremities motor strength 5/5 Skin: no rashes, warm and dry Neurologic: PERRL, EOMI, accommodation nl, no face palsy, no dysarthria Psychiatric: A+Ox3, euthymic affect Results & Data ([facility]) Vital Signs (Past 12 Hours) Vital Signs Temp Pulse Pulse Resp BP BP Pulse Ox 11/15/20 09:32 90 102/67 103/67 11/15/20 08:22 94/61 L 107/72 11/15/20 07:34 36.6 C 80 20 88/41 L 96 11/15/20 03:07 36.7 C 84 17 146/83 H 89 L 11/15/20 00:08 68 Laboratory Results Laboratory Results - last 24 hr 11/15/20 11/15/20 05:20 05:20 WBC 9.65 RBC 3.68 L Hgb 12.6 L Hct 37.4 L MCV 101.6 H MCH 34.2 H MCHC 33.7 RDW Std Deviation 54.3 H RDW Coeff of Anupama 14.8 H Plt Count 255 MPV 8.5 Sodium 136 Potassium 4.0 Chloride 101 Carbon Dioxide 32 Anion Gap 3.0 BUN 40 H Creatinine 1.20 Est Cr Clr Drug Dosing 50.6 Est GFR ( Amer) 63.5 Est GFR (Non-Af Amer) 54.8 BUN/Creatinine Ratio 33.0 H Glucose 84 Calcium 8.3 L Magnesium 2.5 H
--- NOTE | 2020-11-15 14:40 | Hospitalist Progress Note ---
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 Acute on chronic diastolic CHF (congestive heart failure): #. Elevated troponin: Pt came in with c/o generalized weakness, lower extremity edema, progressive RIVAS Admitting pBNP was 4862 Admitting CXR: pul. vascular congestion w/ trace pleural effusion. Also concern for b/l patchy airspace disease. Admitting CT chest: Cardiomegaly with small layering pleural effusions. Patchy bilateral groundglass and consolidative opacities are suggestive of a nonspecif ic infectious or inflammatory pneumonitis. CT head/ CT C Spine: no acute findings Cardiology on board: added metoprolol 25 mg BD, cut down lasix to 40 mg PO daily (home dose 20 mg daily), cut down lisinopril from 10 to 5 mg daily. monitor electrolytes, Echo 12/2019-EF 50 to 54%; 11/13 ECHO: EF 40-45%, severe concentric LVH, moderate left ventricular systolic dysfunction. Concern for possible infiltrative cardiomyopathy, hence labs are ordered (SPEP, UPEP, Serum light chain, immunofixation) per cardiology. F/u with the results. Dtr made aware. Flat troponin at 0.14 2/2 acute decompensated heart failure. Cardiology aware, no iv anticoagulation currently. C/w diuresis, talked with cardiology in person. OK with DC. Hold BP meds for SBP <90 mmHg. Monitor daily clinical and labs for electrolytes. #. Intramuscular hematoma -Patient noted to have bruising on the right side of the abdomen spreading to the right flank -Patient denies fallhistory however has been performing some stretches over the past week -CT ABD/pelvis shows acute intramuscular hematoma within the abdominal wall of the right mid abdomen -Hgb stable at 12.8; Iron profile wnl -c/w aspirin; started heparin today, will continue to monitor. Bruise has stayed same -Monitor CBC #. CIDP (chronic inflammatory demyelinating polyneuropathy): -Continue chronic prednisone #. Hypertension: -BP holding up good. -monitor vitals per unit routine -Skip/hold BP meds if SBP<90 mmHg #. Tinea pedis: -c/w Topical clotrimazole #. DVT prophylaxis: -SCDs due to intramuscular hematoma Disposition: He needs script for PT eval and treat. Cardio ok with DC, he will be dishcarged to home w/ HH PT (per PT recommendation) tomorrow unless new problem arise. Dtr wanted one more day for the patient to stay for concerns of meds changes and its impact in his BP as noted below: CM spoke with Mr Moseley & his dgt Celi. As his BP is rather low and he still has a jordan in, would we be able to get the jordan out today and monitor the BP over the night and discharge tomorrow? Pt and dgt are agreeable to outpt therapy Script will be provided for him "PT eval and treat" and per CAROLE, they can set that up. Admission and Anticipated Discharge Date Admission Date: November 13, 2020 Subjective Patient was sitting up in chair, NAD, on RA. Patient denies Headache, Dizziness, Fever, Chills, Sore throat, Cough, Chest pain, palpitations, Belly pain, pain/burning while passing urine. Last Bowel movement [yesterday]. No issues overnight. Pt reports feeling better same as yesterday. Per RN, no issues overnight. Physical Exam Physical Exam: GENERAL: Alert and oriented x3. NAD, on RA. HEENT: No pallor, no icterus. Pupils equal, round and reactive to light. Oral mucosa moist. NECK: No JVD, no neck masses. HEART: S1 and S2 heard. Regular rate and rhythm. No murmur, no gallop. RESPIRATORY SYSTEM: Normal AP diameter. No accessory muscle use. No wheezing, bibasilar crackles. ABDOMEN: Soft, bowel sounds present, nontender, no distention. large bruise starting almost midline on Rt side of belly expanding to lateral Rt flank. CENTRAL NERVOUS SYSTEM: Alert and oriented x3. No facial droop. Speech is clear. Obeys simple commands. Moves extremities. EXTREMITIES: 1+ edema, no erythema seen. Rash of tinea pedis b/l feet noted. Results & Data Results & Data ([facility]) Vital Signs (Past 12 Hours) Vital Signs Temp Pulse Resp BP BP Pulse Ox 11/15/20 12:32 37 C 74 16 91/60 L 92 11/15/20 12:19 37.0 C 92 H 18 110/83 93 11/15/20 09:32 90 102/67 103/67 11/15/20 08:22 94/61 L 107/72 11/15/20 07:34 36.6 C 80 20 88/41 L 96 11/15/20 03:07 36.7 C 84 17 146/83 H 89 L
[2020-11-15] MEDS ORDERED: FUROSEMIDE 40 MG TAB PO ONE (17:56)
[2020-11-15] MEDS: ESCITALOPRAM OXALATE 20 MG TAB PO SCH (20:11)
[2020-11-15] MEDS: FAMOTIDINE 20 MG TAB PO SCH (20:11)
[2020-11-15] MEDS: HEPARIN SOD 5,000 UNIT/0.5 ML VIAL SQ SCH (20:12)
[2020-11-15] MEDS ORDERED: HEPARIN SOD 5,000 UNIT/0.5 ML VIAL SQ SCH (21:00)
[2020-11-16 06:06] LABS: Hematocrit (blood only) 37.5 % (42-52); Hemoglobin 12.5 g/dL (14.0-18.0); Mean Corpuscular Hemoglobin 33.9 pg (25-34); Mean Corpuscular Hgb Conc 33.3 g/dL (32-36); Mean Corpuscular Volume 101.6 fL (80-100); Mean Platelet Volume 8.7 fL (7.4-10.4); Platelet Count 244 K/uL (130-400); RDW Coefficient of Variation 14.9 % (11.5-14.5); RDW Standard Deviation 55.4 fL (36.4-46.3); Red Blood Count 3.69 M/uL (4.7-6.1); White Blood Count 9.85 K/uL (4.8-10.8)
[2020-11-16 06:53] LABS: BUN Creatinine Ratio 30.8 (10-20); Calcium 8.1 mg/dl (8.5-10.1); Creatinine Clr Calc Pharmacy 52.2 ml/min; Est GFR (African American) 65.5 ml/min; Est GFR (Non-African American) 56.5 ml/min; Magnesium 2.4 mg/dl (1.8-2.4); Potassium 4.1 mmol/L (3.5-5.1)
[2020-11-16] MEDS: CLOTRIMAZOLE 1% CR 15 GM TUBE EXT SCH (08:17)
[2020-11-16] MEDS: CHOLECALCIFEROL 1,000 UNITS 25 MCG TAB PO SCH (08:19)
[2020-11-16] MEDS: METOPROLOL TARTRATE 25 MG TAB PO SCH (08:19)
[2020-11-16] MEDS: lisinopril 5 MG TAB PO SCH (08:19)
[2020-11-16] MEDS: buPROPion XL 150 MG TABCR PO SCH (08:20)
[2020-11-16] MEDS: ASPIRIN 81 MG ECTAB PO SCH (08:20)
[2020-11-16] MEDS: CYANOCOBALAMIN 500 MCG TABLET (VITAMIN B-12) PO SCH (08:20)
[2020-11-16] MEDS: predniSONE 5 MG TAB PO SCH (08:20)
[2020-11-16] MEDS: HEPARIN SOD 5,000 UNIT/0.5 ML VIAL SQ SCH (08:21)
[2020-11-16] MEDS ORDERED: FUROSEMIDE 40 MG TAB PO SCH (09:00)
--- NOTE | 2020-11-16 17:30 | Discharge Summary ---
Date of Service November 16, 2020 Admission HPI Per Admitting Provider 84-year-old male with PMH prediabetes, chronic diastolic CHF, HTN, LBBB, mild aortic stenosis, chronic inflammatory demyelinating polyneuropathy on chronic prednisone, and other problems listed below who presents to the ED for evaluation of generalized weakness, lower extremity edema, shortness of breath, abdominal bruising. Patient was seen by PCP on 11/03 for lower extremity edema. Lasix was increased to 40 mg daily for 7 days. There was not much improvement in the lower extremity edema. Patient also developed red patches on his left leg. He was started on Keflex for suspected cellulitis. MARTA was also ordered that was unremarkable. Today, patient showed his daughter a bruise that developed on his right abdomen a few days ago. It has been progressively getting worse and wrapping around to the right flank. Patient denies any trauma. He has been performing some stretching exercises. Patient reports over the past few weeks, he has felt increasing generalized weakness. Also worsening shortness of breath on exertion. He does not routinely weigh himself however feels as though he may have gained 10 pounds. Denies chest pain and palpitations. Reports some mild lightheadedness and dizziness with standing too quickly however no syncopal event. No other recent illnesses, fevers, chills. Denies abdominal pain, nausea, vomiting, diarrhea. No urinary symptoms. In the ED, imaging shows small bilateral pleural effusions, proBNP 4800, troponin 0.149. EKG shows an unchanged LBBB. CT ABD/pelvis shows acute intramuscular hematoma within the abdominal wall of the right mid abdomen. Hgb stable at 12.7. Admission Exam Per Admitting Provider Constitutional: WD/WN, vitals as above Eyes: PERRL, conjunctivae normal, anicteric sclerae ENMT: external ear and nose normal, oropharynx normal Respiratory: normal respiratory effort; no respiratory distress Auscultation: + crackles (Bilateral bases) Cardiovascular: Rate/Rhythm: regular rate and regular rhythm Vessels: normal peripheral pulses Extremities: + edema (+2-3 edema BLE) Gastrointestinal (Abdomen): normal bowel sounds, soft, nontender, no hepato splenomegaly Ecchymosis on the right side of the abdomen wrapping around to the right flank Musculoskeletal: no cyanosis or clubbing, extremities motor strength 5/5 Skin: areas of a tinea-like rash noted on left gay; dry skin noted BL feet Neurologic: PERRL, EOMI, accommodation nl, no face palsy, no dysarthria Psychiatric: A+Ox3, euthymic affect Principal Diagnosis Acute on chronic diastolic CHF Intramuscular Hematoma x Rt Abdomen Discharge Exam GENERAL: Alert and oriented x3. NAD, on RA. HEENT: No pallor, no icterus. Pupils equal, round and reactive to light. Oral mucosa moist. NECK: No JVD, no neck masses. HEART: S1 and S2 heard. Regular rate and rhythm. No murmur, no gallop. RESPIRATORY SYSTEM: Normal AP diameter. No accessory muscle use. No wheezing, bibasilar crackles. ABDOMEN: Soft, bowel sounds present, nontender, no distention. large bruise starting almost midline on Rt side of belly expanding to lateral Rt flank. CENTRAL NERVOUS SYSTEM: Alert and oriented x3. No facial droop. Speech is clear. Obeys simple commands. Moves extremities. EXTREMITIES: trace to 1+ edema, no erythema seen. Rash of tinea pedis b/l feet noted. 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 Acute on chronic diastolic CHF (congestive heart failure): #. Elevated troponin: Pt came in with c/o generalized weakness, lower extremity edema, progressive RIVAS Admitting pBNP was 4862 Admitting CXR: pul. vascular congestion w/ trace pleural effusion. Also concern for b/l patchy airspace disease. Admitting CT chest: Cardiomegaly with small layering pleural effusions. Patchy bilateral groundglass and consolidative opacities are suggestive of a nonspecific infectious or inflammatory pneumonitis. CT head/ CT C Spine: no acute findings Cardiology on board: added metoprolol 25 mg BD, cut down lasix to 40 mg PO daily (home dose 20 mg daily), cut down lisinopril from 10 to 5 mg daily. monitor electrolytes, Echo 12/2019-EF 50 to 54%; 11/13 ECHO: EF 40-45%, severe concentric LVH, moderate left ventricular systolic dysfunction. Concern for possible infiltrative cardiomyopathy, hence labs are ordered (SPEP, UPEP, Serum light chain, immunofixation) per cardiology. F/u with the results. Dtr made aware. Flat troponin at 0.14 2/ acute decompensated heart failure. Cardiology aware, no iv anticoagulation currently. C/w diuresis, talked with cardiology in person. OK with DC. Hold BP meds for SBP <90 mmHg. Will need to follow up with PCP In a week's time and cardiology in 2-3 weeks. Instruction for CHF care provided. #. Intramuscular hematoma -Patient noted to have bruising on the right side of the abdomen spreading to the right flank -Patient denies fallhistory however has been performing some stretches over the past week -CT ABD/pelvis shows acute intramuscular hematoma within the abdominal wall of the right mid abdomen -Hgb stable at 12.8; Iron profile wnl -c/w aspirin; was on heparin for 1 day when inpatient. Bruise has stayed same - continue to monitor the burise at home upon discharge #. CIDP (chronic inflammatory demyelinating polyneuropathy): -Continue chronic prednisone #. Hypertension: -BP holding up good. -monitor vitals per unit routine -Skip/hold BP meds if SBP<90 mmHg #. Tinea pedis: -c/w Topical clotrimazole as directed. #. DVT prophylaxis: -SCDs due to intramuscular hematoma Disposition: Discharged home w/ HH PT (per PT recommendation) with script for PT eval and treat. Following instructions were provided along with instructions for CHF care: Measure BP twice a day, if low with symptoms of dizziness/fall -- call your PCP. Take medications as prescribed. Patient needs home PT for strength and training. When in chest pain (cardiac), take one nitroglycerine tablet as prescribed; can take another tablet in 5-10 minutes if pain doesn't resolve but call your PCP or go to hospital when you have to take this tablet. Follow up with your PCP in a week's time. Get CBC and BMP in a week's time. Follow up with your heart doctor in a 2-3 weeks. f/u with this lab results which are still pending at the time of discharge: SPEP, UPEP, Serum light chain, immunofixation Total Time Total Time Spent Total Time Spent (In Minutes): 45 Discharge Plan Discharge Items Patient Disposition: Home - Home Health Services Reason For Visit: CHF Discharge Diagnosis: Acute on chronic diastolic CHF Intramuscular Hematoma x Rt Abdomen Condition on Discharge: Good Activity: Resume your previous activity Non-emergency contact: Primary Care Provider Call non-emergency contact if: you have any medication questions Follow-up/Referrals: Mai Jett MD [Primary Care Provider] - Diet: Heart Healthy and Low Sodium (2gm) Addtl Attending Provider Instructions: Call 911 and go to the Emergency Room if: * You have tightness or pain in your chest that does not go away with rest or Nitroglycerin * You are very short of breath even with rest Call your doctor if any of the following symptoms or problems start or get worse: * Shortness of breath or difficulty breathing * Wake up at night short of breath * Chest pain * Cough * Swelling of your hands, fee, or legs * More fatigued or tired with your normal activity * Palpitations - sudden fast heart beats WEIGHT * Weigh yourself every morning after using the bathroom. * Use the same scale. * Wear the same amount of clothing. * Write your weight down on your chart. * Call your doctor if you gain more than 2-3 pounds in 1-2 days. MEDICATIONS * Use this discharge instruction sheet for instructions. * Take your medications at the time your doctor ordered. * Do not skip a dose of your medicines. * If you miss a dose of medicine, take as soon as possible, but DO NOT DOUBLE A DOSE. * Read your medicine information when you get home. * Know all of the side effects of your medicine. * Call your doctor's office if you have any side effects. * Be sure all of your doctors know what medicine and herbs you take (including cold, flu, and herbal medicine). * Pain Medicine: If you do not get relief from your pain, please call your doctor for help. Take the following with you to your follow-up doctor appointments: * Weight Chart * Medication List * List of questions Do not drink excessive alcohol, beer or wine. Measure BP twice a day, if low with symptoms of dizziness/fall -- call your PCP. Take medications as prescribed. Patient needs home PT for strength and training. When in chest pain (cardiac), take one nitroglycerine tablet as prescribed; can take another tablet in 5-10 minutes if pain doesn't resolve but call your PCP or go to hospital when you have to take this tablet. Follow up with your PCP in a week's time. Get CBC and BMP in a week's time. Follow up with your heart doctor in a 2-3 weeks. f/u with this lab results which are still pending at the time of discharge: SPEP, UPEP, Serum light chain, immunofixation Pending Studies at Discharge: Yes Studies:: SPEP, UPEP, Serum light chain, immunofixation Stand-Alone Forms: [facility] [employer], Smoking Cessation Medications and DC Order Prescriptions: New lisinopril [Zestril] 5 mg Tablet 5 mg PO QAM 30 Days Qty: 30 RF: 0 metoprolol tartrate 25 mg Tablet 25 mg PO BID 30 Days Qty: 60 RF: 0 nitroglycerin [Nitrostat] 0.4 mg Tablet, Sublingual 0.4 mg sublingual UD PRN (Reason: chest pain) 7 Days Qty: 10 RF: 0 furosemide 40 mg Tablet 40 mg PO QAM 30 Days Qty: 30 RF: 0 clotrimazole 1 % Cream 1 applic EXT BID 30 Days Qty: 45 RF: 0 Continued prednisone 20 mg tablet 15 mg PO DAILY RF: 0 famotidine [Acid Machine Egg Washer (famotidine)] 20 mg tablet 20 mg PO PM RF: 0 multivitamin Tablet 1 tab PO QAM RF: 0 alendronate [Fosamax] 70 mg Tablet 70 mg PO WK RF: 0 cyanocobalamin (vitamin B-12) [Vitamin B-12] 1,000 mcg Tablet 1,000 mcg PO QAM RF: 0 escitalopram oxalate [Lexapro] 20 mg Tablet 20 mg PO QPM RF: 0 cholecalciferol (vitamin D3) [Vitamin D3] 1,000 unit Tablet 1,000 unit PO QAM RF: 0 ascorbic acid (vitamin C) 500 mg Tablet 500 mg PO QAM RF: 0 Cbd Oil 1 dose sublingual QAM RF: 0 acetaminophen [Tylenol Extra Strength] 500 mg Tablet 500 - 1,000 mg PO BID PRN (Reason: Fever Or Pain) RF: 0 bupropion HCl 150 mg tablet extended release 24 hr 150 mg PO QAM RF: 0 aspirin 81 mg tablet,delayed release (DR/EC) 81 mg PO QAM RF: 0 Discontinued furosemide [Lasix] 20 mg tablet 20 mg PO DAILY RF: 0 cephalexin 250 mg capsule 250 mg PO QID RF: 0 lisinopril 10 mg tablet 10 mg PO QAM RF: 0 Discharge Orders: Discharge Order (Routine); Ordered 11/16/20 Ordered By: Tyree Flores Admission Data Admit Date/Time: 11/13/20 19:05 Attending Provider: Tyree Flores Admit Provider: Michael Bailey Primary Care Provider: Mai Jett Other Providers: Michael Bailey ; Carlos Floyd Other Interventions: Discharge Summary Assessment (RN) Last Done: 11/16/20 13:12
[2020-11-17 09:01] LABS: Creatinine Ur 28 mg/dL (20-320); Protein, Urine Random 4 mg/dL (5-25); Ur Protein/Creat Ratio mg/g 143 mg/g creat (22-128); Urine Abnormal Protein Band 1 DNR mg/dL (NONE DETECTED); Urine Abnormal Protein Band 2 DNR mg/dL (NONE DETECTED); Urine Abnormal Protein Band 3 DNR mg/dL (NONE DETECTED); Urine Protein/Creatinine Ratio 0.143 (0.022-0.128)
[2020-11-20 14:36] LABS: Albumin 2.8 g/dL (3.8-4.8); Alpha 1 Globulin 0.3 g/dL (0.2-0.3); Alpha 2 Globulin 0.9 g/dL (0.5-0.9); Beta-1-Globulin 0.4 g/dL (0.4-0.6); Beta-2-Globulin 0.3 g/dL (0.2-0.5); Free Kappa/Lambda Ratio 1.22 (0.26-1.65); Free Lambda 14.7 mg/L (5.7-26.3); Gamma Globulin 0.5 g/dL (0.8-1.7); Kappa 158 mg/dL (176-443); Kappa Lambda Ratio 1.65 (1.29-2.55); Lambda 96 mg/dL (91-240); Monoclonal Protein Band 1 DNR g/dL (NONE DETECTED); Monoclonal Protein Band 2 DNR g/dL (NONE DETECTED); Monoclonal Protein Band 3 DNR g/dL (NONE DETECTED); Total Protein 5.2 g/dL (6.1-8.1)
--- NOTE | 2020-11-26 14:33 | Coding Query ---
CONGESTIVE HEART FAILURE To Promote full compliance with coding requirements relating to patient care, physician participation is requested in all cases of road train driver uncertainty. Please assist us with the following questions. A diagnosis of Congestive Heart Failure is documented in the patient's medical record. The Discharge Summary documents in the Principal Diagnosis area, "Acute on chronic diastolic CHF" and the Cardiology Consultation and Cardiology Progress Note and Discharge Summary down lower under Hospital Course document, "Acute on chronic heart failure with reduced ejection fraction and diastolic dysfunction". Due to the conflicting documentation and to accurately code this diagnosis and to compare patient severity, we ask that you specify the type of heart failure by placing an X within the parenthesis (x). ( x ) SYSTOLIC HEART FAILURE - HFrEF ( ) DIASTOLIC HEART FAILURE - HFpEF ( ) COMBINED SYSTOLIC AND DIASTOLIC HEART FAILURE Thank you Kamini LUBIN
== END 2020-11-16 15:46 | disposition home or self-care (01) | DRG 292 ==
LOC: 2S 10:08 → ED 10:08 → SUATTDRO 14:23 → 2S 15:56
DX: Z79.82 Long term (current) use of aspirin; G61.81 Chronic inflammatory demyelinating polyneuritis; I35.0 Nonrheumatic aortic (valve) stenosis; I11.0 Hypertensive heart disease with heart failure; M79.81 Nontraumatic hematoma of soft tissue; B35.3 Tinea pedis; I24.8 Other forms of acute ischemic heart disease; Z88.5 Allergy status to narcotic agent; Z88.8 Allergy status to other drugs, medicaments and biological substances; R73.03 Prediabetes; Z79.899 Other long term (current) drug therapy; F41.9 Anxiety disorder, unspecified; K21.9 Gastro-esophageal reflux disease without esophagitis; F32.9 Major depressive disorder, single episode, unspecified; I42.8 Other cardiomyopathies; Z79.52 Long term (current) use of systemic steroids; M81.0 Age-related osteoporosis without current pathological fracture; I44.7 Left bundle-branch block, unspecified; I50.23 Acute on chronic systolic (congestive) heart failure; I49.1 Atrial premature depolarization

== ENCOUNTER 2021-06-03 12:25 | Inpatient (IN) ==
--- NOTE | 2021-06-03 12:50 | Emergency Department Note ---
Impression & Plan Pneumonia, Hypoxemia, Elevated troponin, Acute dehydration ED Provider Note NAME: HERLINDA GRACE AGE: 85 SEX: M : 1935 ARRIVES VIA: Ambulance INFORMANT: Patient, ED PROVIDER(S): Wing Wright MD Chief Complaint: Shortness of breath, weakness, fatigue, disorientation HPI: Patient presents from the outpatient setting due to concern for weakness confusion and cough. There was concerned about a possible pneumonia as the patient has complained of a an occasional productive cough with some mild right-sided chest pain with associated cough. No known recent travel. The patient is vaccinated for COVID and flu. The patient does have a history of CHF but no reported leg swelling. Patient has been compliant with medications currently on Lasix 40 mg. He did take his morning medications and is accomp anied by his daughter. Patient denies any abdominal pain nausea or vomiting. The patient has had ongoing symptoms since about Monday with increasing weakness and decreased mobility. The patient had been seen in the outpatient setting without the patient was having some difficulty with breathing and presented here at 86% on room air. Patient did have a urine dip completed in the outpatient setting which was negative. Chest x-ray was completed and they did show concern for pneumonia. No known sick contacts. ROS: See HPI for pertinent positives and negatives. A total of 10 systems were re viewed and otherwise negative. Past medical history: See below Surgical history: See below Social history: See below Physical Exam: GENERAL: NAD, wearing glasses, wearing a mask, non-toxic. EYE EXAM: Normal conjunctiva. PERRL, no anisocoria and EOM's grossly intact w/o pain. NECK: Supple, no nuchal rigidity, no adenopathy, non-tender. No signs of meningismus. LUNGS: Clear to auscultation. Normal chest wall mechanics. HEART: NSR, no MRG. ABDOMEN: Abdomen soft, non-tender, normo-active bowel sounds, no masses, no rebound or guarding. BACK: No CVA TTP. SKIN: No rashes and no bruising. UPPER EXTREMITIES: Upper extremities are grossly normal. LOWER EXTREMITIES: Grossly normal, no edema. NEURO EXAM: A&O x3, cranial nerves II-XII grossly intact, normal speech, moves all 4 extremities on command w/o issue. Differential diagnoses: Infection, dehydration, metabolic abnormality, hypo/hy perglycemia, electrolyte disturbance, anemia, hypoxia, cardiac sources, intracerebral event, toxicologic, neurologic, as well as other pathologies. Course: Patient was seen and evaluated the bedside. Full history physical exam was performed. EKG interpreted by me Normal sinus rhythm, rate of 77, wide QRS, left axis deviation, left bundle branch block pattern. No obvious sgarbossa criteria. Patient's inferior axis appears changed from comparison EKG from November 14, 2020 where the patient's QRS complexes positive reflecting more is now it is negatively developed him. Patient does have a change from right to left axis. Left bundle branch block appears to be old. Imaging Studies: See Below cardiac monitoring: An order was placed for continuous cardiac monitoring. The monitor shows a rate of 82 with sinus rhythm. MDM: Patient was seen due to concern for weakness cough and possible pneumonia. The patient did present with an oxygen requirement. The patient was tolerating 2 L well. Bladder completed along with blood cultures lactate and was ordered cefepime for antibiotics along with doxycycline and a MRSA swab. Patient has a white count of 12 with mild anemia at 13.7. Platelet count is unremarkable. Patient's blood gas does not show any hypercarbia or acidemia. Patient does have prerenal azotemia with a BUN and creatinine 31 and 1 respectively. Troponin is 0.1. The patient did complain of some right-sided chest discomfort but that was secondary to coughing. Patient does have a change in axis from his prior EKG but his left instead of right. Patient does not have any obvious asymmetry to the lower extremities. Believe this likely to be secondary to his infectious etiology and likely demand ischemia. I did have the on-call hospitalist Dr. Sanchez and the patient was admitted to the medicine service. Critical Care: I have personally spent 42 minutes of critical care time in direct management of this patient. This includes bedside care, interpretation of diagnostic studies, and testing, discussion with consultants, patient, and family members, and other require inpatient management activities. This 42 minutes is in excess of all separately billable procedures. Past Med/Surg History Medical History Anxiety CIDP (chronic inflammatory demyelinating polyneuropathy) Eduard Grande; Dr. Guzman/ [facility] Puente q 3 months Pt has numbness in feet/ankles, some numbness in fingers. On daily Prednisone 10mg . Depression GERD (gastroesophageal reflux disease) Hypertension Left bundle branch block (LBBB) Mild aortic stenosis Osteoporosis Surgical History History of anesthesia reaction SLOW TO WAKE UP-W GALL BLADDER 2018-[facility] History of cataract surgery RT/LT History of colonoscopy History of esophagogastroduodenoscopy (EGD) History of tooth extraction all teeth History of total left hip replacement Hx of cholecystectomy S/P laparoscopic cholecystectomy Status post right hip replacement (~12/2019) Family History Father Heart disease Other No family history of adverse response to anesthesia Social History Smoking Status: Never smoker Second Hand Exposure: No; Hx Alcohol Use: No Hx Substance Use: No Preferred Language: Kinyarwanda Communication Ability: Effective Visual Impairment: Limited Hearing Ability: Hard of Hearing Squaring Machine Operator Required: No Beliefs That Will Affect Care: None marital status: Current Living Situation: Spouse Feels Safe at Home: Yes Assistive Devices: Denture - Upper, Denture - Lower, Hearing Aid - Bilateral and Walker Allergies Allergies Allergy/AdvReac Type Severity Reaction Status Date / Time simvastatin AdvReac Mild leg pain Verified 06/03/21 14:16 tramadol [From Ultram] AdvReac Mild Hallucinati Verified 06/03/21 14:16 ng Home Meds Home Medications Medication Instructions Recorded Confirmed alendronate 70 mg tablet (Fosamax) 70 mg PO WK 02/17/18 06/03/21 ascorbic acid (vitamin C) 500 mg 500 mg PO QAM 02/17/18 06/03/21 tablet cholecalciferol (vitamin D3) 25 1,000 unit PO QAM 02/17/18 06/03/21 mcg (1,000 unit) tablet (Vitamin D3) cyanocobalamin (vitamin B-12) 1,000 mcg PO QAM 02/17/18 06/03/21 1,000 mcg tablet (Vitamin B-12) multivitamin 1 tab PO QAM 02/17/18 06/03/21 famotidine 20 mg tablet (Acid 20 mg PO HS 12/04/19 06/03/21 Capsule Filling Machine Operator (famotidine)) aspirin 81 mg tablet,delayed 81 mg PO QAM 11/12/20 06/03/21 release bupropion HCl 150 mg 24 hr tablet, 150 mg PO QAM 11/12/20 06/03/21 extended release escitalopram oxalate 20 mg tablet 10 mg PO QDD 06/03/21 06/03/21 furosemide 40 mg tablet 40 mg PO QAM 06/03/21 06/03/21 lisinopril 5 mg tablet 5 mg PO QAM 06/03/21 06/03/21 metoprolol succinate 50 mg 50 mg PO QAM 06/03/21 06/03/21 tablet,extended release 24 hr prednisone 10 mg tablet 10 mg PO QAM 06/03/21 06/03/21 Results & Data (ED) Vital Signs Vital Signs - 24 hr 06/03/21 12:59 06/03/21 13:09 06/03/21 14:03 Temperature 37.2 C Temperature Source Oral Pulse Rate 78 78 Pulse Rate [Apical] Pulse Rate from SpO2 Sensor Pulse Rhythm Regular Regular Pulse Rhythm [Apical] Pulse Strength Normal Pulse Strength [Apical] Respiratory Rate 18 18 Respiratory Effort / Characteristics Non-Labored Non-Labored Respiratory Depth Normal Respiratory Pattern Regular Blood Pressure 104/61 Blood Pressure [Left Arm] Blood Pressure Mean 75 Blood Pressure Mean [Left Arm] Blood Pressure Position Lying Blood Pressure Position [Left Arm] Pulse Oximetry 94 94 94 Oxygen Delivery Method Nasal Cannula Nasal Cannula Nasal Cannula Oxygen Flow Rate 2 2 2 Sepsis Recent Fever Within 48 Hours No Sepsis New/Unexplained Change in Mental Status No Sepsis Action Taken by Nursing No Action Required Oxygen Flow Rate - Titration 4 Pulse Oximetry Post Tiitration 95 06/03/21 14:30 06/03/21 15:00 06/03/21 15:30 Temperature Temperature Source Pulse Rate 80 81 Pulse Rate [Apical] 81 Pulse Rate from SpO2 Sensor 80 83 Pulse Rhythm Pulse Rhythm [Apical] Regular Pulse Strength Pulse Strength [Apical] Normal Respiratory Rate 18 19 Respiratory Effort / Characteristics Non-Labored Non-Labored Non-Labored Respiratory Depth Normal Respiratory Pattern Regular Blood Pressure 112/63 116/73 Blood Pressure [Left Arm] 112/63 Blood Pressure Mean 79 87 Blood Pressure Mean [Left Arm] 79 Blood Pressure Position Blood Pressure Position [Left Arm] Lying Pulse Oximetry 95 95 94 Oxygen Delivery Method Nasal Cannula Nasal Cannula Nasal Cannula Oxygen Flow Rate 2 2 2 Sepsis Recent Fever Within 48 Hours Sepsis New/Unexplained Change in Mental Status Sepsis Action Taken by Nursing Oxygen Flow Rate - Titration Pulse Oximetry Post Tiitration Home Medications Current Medication List: was personally reviewed by me Laboratory Data Attestation: I reviewed the patient's lab results. Result diagrams: 06/03/21 12:54 06/03/21 14:00 Lab Results 06/03/21 06/03/21 06/03/21 Range/Units 12:54 12:54 12:54 WBC 12.48 H (4.8-10.8) K/uL RBC 4.01 L (4.7-6.1) M/uL Hgb 13.7 L (14.0-18.0) g/dL Hct 41.5 L (42-52) % MCV 103.5 H (80-100) fL MCH 34.2 H (25-34) pg MCHC 33.0 (32-36) g/dL RDW Std Deviation 50.4 H (36.4-46.3) fL RDW Coeff of Anupama 13.4 (11.5-14.5) % Plt Count 252 (130-400) K/uL MPV 9.5 (7.4-10.4) fL Immature Gran % (Auto) 0.9 % Neut % (Auto) 86.7 % Lymph % (Auto) 3.9 % [place] % (Auto) 8.3 % Eos % (Auto) 0.0 % Baso % (Auto) 0.2 % Neut # (Auto) 10.82 H (1.4-6.5) K/uL Lymph # (Auto) 0.49 L (1.2-3.4) K/uL [place] # (Auto) 1.04 H (0.11-0.59) K/uL Eos # (Auto) 0.00 (0-0.5) K/uL Baso # (Auto) 0.02 (0-0.2) K/uL Immature Gran # (Auto) 0.11 H (0.00-0.02) K/uL PT Cancelled INR Cancelled APTT Cancelled PTT Ratio Cancelled VBG pH (7.36-7.41) VBG pCO2 (38-50) mmHg VBG pO2 mmHg VBG HCO3 mmol/L VBG O2 Saturation % VBG Base Excess mEq/L Barometric Pressure mm/Hg Sodium Cancelled Potassium Cancelled Chloride Cancelled Carbon Dioxide Cancelled Anion Gap Cancelled BUN Cancelled Creatinine Cancelled Est Cr Clr Drug Dosing Cancelled Est GFR ( Amer) Cancelled Est GFR (Non-Af Amer) Cancelled BUN/Creatinine Ratio Cancelled Glucose Cancelled Lactate (0.4-2.0) mmol/L Calcium Cancelled Magnesium Cancelled Total Bilirubin Cancelled AST Cancelled ALT Cancelled Alkaline Phosphatase Cancelled Troponin I Cancelled Total Protein Cancelled Albumin Cancelled Globulin Cancelled Albumin/Globulin Ratio Cancelled Procalcitonin Urine Color Urine Appearance (Clear) Urine pH (4.5-7.5) Ur Specific [place] (1.000-1.030) Urine Protein (Negative) Urine Glucose (UA) (Negative) Urine Ketones (Negative) Urine Blood (Negative) Urine Nitrite (Negative) Urine Bilirubin (Negative) Urine Urobilinogen (Negative) Ur Leukocyte Esterase (Negative) Nasal Screen MRSA (PCR) (Negative) SARS-CoV-2 (PCR) (Negative) Influenza Type A (PCR) (Neg) Influenza Type B (PCR) (Neg) RSV (RT-PCR) (Neg) 06/03/21 06/03/21 06/03/21 Range/Units 12:54 13:23 13:23 WBC (4.8-10.8) K/uL RBC (4.7-6.1) M/uL Hgb (14.0-18.0) g/dL Hct (42-52) % MCV (80-100) fL MCH (25-34) pg MCHC (32-36) g/dL RDW Std Deviation (36.4-46.3) fL RDW Coeff of Anupama (11.5-14.5) % Plt Count (130-400) K/uL MPV (7.4-10.4) fL Immature Gran % (Auto) % Neut % (Auto) % Lymph % (Auto) % [place] % (Auto) % Eos % (Auto) % Baso % (Auto) % Neut # (Auto) (1.4-6.5) K/uL Lymph # (Auto) (1.2-3.4) K/uL [place] # (Auto) (0.11-0.59) K/uL Eos # (Auto) (0-0.5) K/uL Baso # (Auto) (0-0.2) K/uL Immature Gran # (Auto) (0.00-0.02) K/uL PT INR APTT PTT Ratio VBG pH 7.46 H (7.36-7.41) VBG pCO2 47 (38-50) mmHg VBG pO2 29 mmHg VBG HCO3 33 mmol/L VBG O2 Saturation < 60.0 % VBG Base Excess 7.9 mEq/L Barometric Pressure 729.4 mm/Hg Sodium Potassium Chloride Carbon Dioxide Anion Gap BUN Creatinine Est Cr Clr Drug Dosing Est GFR ( Amer) Est GFR (Non-Af Amer) BUN/Creatinine Ratio Glucose Lactate 1.0 (0.4-2.0) mmol/L Calcium Magnesium Total Bilirubin AST ALT Alkaline Phosphatase Troponin I Total Protein Albumin Globulin Albumin/Globulin Ratio Procalcitonin Cancelled Urine Color Urine Appearance (Clear) Urine pH (4.5-7.5) Ur Specific [place] (1.000-1.030) Urine Protein (Negative) Urine Glucose (UA) (Negative) Urine Ketones (Negative) Urine Blood (Negative) Urine Nitrite (Negative) Urine Bilirubin (Negative) Urine Urobilinogen (Negative) Ur Leukocyte Esterase (Negative) Nasal Screen MRSA (PCR) (Negative) SARS-CoV-2 (PCR) (Negative) Influenza Type A (PCR) (Neg) Influenza Type B (PCR) (Neg) RSV (RT-PCR) (Neg) 06/03/21 06/03/21 06/03/21 Range/Units 13:54 13:54 14:00 WBC (4.8-10.8) K/uL RBC (4.7-6.1) M/uL Hgb (14.0-18.0) g/dL Hct (42-52) % MCV (80-100) fL MCH (25-34) pg MCHC (32-36) g/dL RDW Std Deviation (36.4-46.3) fL RDW Coeff of Anupama (11.5-14.5) % Plt Count (130-400) K/uL MPV (7.4-10.4) fL Immature Gran % (Auto) % Neut % (Auto) % Lymph % (Auto) % [place] % (Auto) % Eos % (Auto) % Baso % (Auto) % Neut # (Auto) (1.4-6.5) K/uL Lymph # (Auto) (1.2-3.4) K/uL [place] # (Auto) (0.11-0.59) K/uL Eos # (Auto) (0-0.5) K/uL Baso # (Auto) (0-0.2) K/uL Immature Gran # (Auto) (0.00-0.02) K/uL PT 10.3 INR 1.0 APTT 26.2 PTT Ratio 1.0 VBG pH (7.36-7.41) VBG pCO2 (38-50) mmHg VBG pO2 mmHg VBG HCO3 mmol/L VBG O2 Saturation % VBG Base Excess mEq/L Barometric Pressure mm/Hg Sodium Potassium Chloride Carbon Dioxide Anion Gap BUN Creatinine Est Cr Clr Drug Dosing Est GFR ( Amer) Est GFR (Non-Af Amer) BUN/Creatinine Ratio Glucose Lactate (0.4-2.0) mmol/L Calcium Magnesium Total Bilirubin AST ALT Alkaline Phosphatase Troponin I Total Protein Albumin Globulin Albumin/Globulin Ratio Procalcitonin Urine Color Urine Appearance (Clear) Urine pH (4.5-7.5) Ur Specific [place] (1.000-1.030) Urine Protein (Negative) Urine Glucose (UA) (Negative) Urine Ketones (Negative) Urine Blood (Negative) Urine Nitrite (Negative) Urine Bilirubin (Negative) Urine Urobilinogen (Negative) Ur Leukocyte Esterase (Negative) Nasal Screen MRSA (PCR) Negative (Negative) SARS-CoV-2 (PCR) NEGATIVE (Negative) Influenza Type A (PCR) Negative (Neg) Influenza Type B (PCR) Negative (Neg) RSV (RT-PCR) Negative (Neg) 06/03/21 06/03/21 06/03/21 Range/Units 14:00 14:00 14:37 WBC (4.8-10.8) K/uL RBC (4.7-6.1) M/uL Hgb (14.0-18.0) g/dL Hct (42-52) % MCV (80-100) fL MCH (25-34) pg MCHC (32-36) g/dL RDW Std Deviation (36.4-46.3) fL RDW Coeff of Anupama (11.5-14.5) % Plt Count (130-400) K/uL MPV (7.4-10.4) fL Immature Gran % (Auto) % Neut % (Auto) % Lymph % (Auto) % [place] % (Auto) % Eos % (Auto) % Baso % (Auto) % Neut # (Auto) (1.4-6.5) K/uL Lymph # (Auto) (1.2-3.4) K/uL [place] # (Auto) (0.11-0.59) K/uL Eos # (Auto) (0-0.5) K/uL Baso # (Auto) (0-0.2) K/uL Immature Gran # (Auto) (0.00-0.02) K/uL PT INR APTT PTT Ratio VBG pH (7.36-7.41) VBG pCO2 (38-50) mmHg VBG pO2 mmHg VBG HCO3 mmol/L VBG O2 Saturation % VBG Base Excess mEq/L Barometric Pressure mm/Hg Sodium 135 L Potassium 4.3 Chloride 97 L Carbon Dioxide 30 Anion Gap 8 BUN 31 H Creatinine 1.03 Est Cr Clr Drug Dosing 57.5 Est GFR ( Amer) 75.9 Est GFR (Non-Af Amer) 65.5 BUN/Creatinine Ratio 30.1 H Glucose 122 H Lactate (0.4-2.0) mmol/L Calcium 8.5 Magnesium 2.1 Total Bilirubin 1.0 AST 20 ALT 16 Alkaline Phosphatase 41 Troponin I 0.11 H* Total Protein 6.3 Albumin 3.3 L Globulin 3.0 Albumin/Globulin Ratio 1.1 Procalcitonin 0.22 Urine Color Yellow Urine Appearance Clear (Clear) Urine pH 6.5 (4.5-7.5) Ur Specific [place] 1.018 (1.000-1.030) Urine Protein Negative (Negative) Urine Glucose (UA) Negative (Negative) Urine Ketones Negative (Negative) Urine Blood Negative (Negative) Urine Nitrite Negative (Negative) Urine Bilirubin Negative (Negative) Urine Urobilinogen Negative (Negative) Ur Leukocyte Esterase Negative (Negative) Nasal Screen MRSA (PCR) (Negative) SARS-CoV-2 (PCR) (Negative) Influenza Type A (PCR) (Neg) Influenza Type B (PCR) (Neg) RSV (RT-PCR) (Neg) Administered Medications Discontinued Medications Doxycycline Hyclate (Doxycycline Hyclate 100 Mg Cap) 100 mg PO NOW STA Stop: 06/03/21 13:42 Last Admin: 06/03/21 13:48 Dose: 100 mg Documented by: [id number] Cefepime HCl (Maxipime) 2,000 mg in 20 mls @ 5 mls/min IV NOW STA; Protocol Stop: 06/03/21 13:06 Last Admin: 06/03/21 13:48 Dose: 5 mls/min Documented by: [id number] Sodium Chloride (Nss) 500 mls @ 999 mls/hr IV .Q31M ONE Stop: 06/03/21 14:32 Last Infusion: 06/03/21 15:08 Dose: 0 mls/hr Documented by: [id number] Admin: 06/03/21 14:00 Dose: 999 mls/hr Documented by: [id number] Imaging Data Radiologist's Impression: Chest X-Ray 06/03/21 13:03 XR chest 1V portable CLINICAL HISTORY: SEPSIS TECHNIQUE: Single frontal radiograph of the chest was obtained. Comparison: Comparison is made to chest one view 11/12/2020 FINDINGS: No lines and tubes are seen. Cardiomegaly is noted. Bilateral lower lung predominant airspace opacities are seen. Airspace opacity is also seen in the right upper lobe. Lungs are underinflated. There is a small right pleural effusion. IMPRESSION: Bilateral lower lung predominant airspace opacities which may represent atelectasis, pneumonia, and/or aspiration. Small right pleural effusion. ACT 112: Negative or not required by law. Electronically signed by: Brandon Jensen M.D. 06/03/2021 1:18 PM Discharge Plan Visit Data Chief Complaint: Shortness of Breath/Dyspnea Stated Complaint: BODY ACHES, WEAKNESS ED Provider: Wing Wright Discharge Problem: Pneumonia, Hypoxemia, Elevated troponin, Acute dehydration Discharge Problem: Pneumonia Qualifiers: Pneumonia type: due to unspecified organism Laterality: bilateral Lung location: lower lobe of lung Qualified Code(s): J18.9 - Pneumonia, unspecified organism
[2021-06-03] MEDS ORDERED: CEFEPIME 2,000 MG/20 ML VIAL IV STA (13:03)
--- NOTE | 2021-06-03 13:19 | XRay Report ---
XR chest 1V portable CLINICAL HISTORY: SEPSIS TECHNIQUE: Single frontal radiograph of the chest was obtained. Comparison: Comparison is made to chest one view 11/12/2020 FINDINGS: No lines and tubes are seen. Cardiomegaly is noted. Bilateral lower lung predominant airspace opaciti es are seen. Airspace opacity is also seen in the right upper lobe. Lungs are underinflated. There is a small right pleural effusion. IMPRESSION: Bilateral lower lung predominant airspace opacities which may represent atelectasis, pneumonia, and/o r aspiration. Small right pleural effusion. ACT 112: Negative or not required by law. Electronically signed by: Brandon Jensen M.D. 06/03/2021 1:18 PM
[2021-06-03 13:34] LABS: Base Excess VBG 7.9 mEq/L; HCO3 VBG 33 mmol/L; Oxygen Saturation VBG < 60.0 %; PCO2 VBG 47 mmHg (38-50); PO2 VBG 29 mmHg; pH VBG 7.46 (7.36-7.41)
[2021-06-03 13:38] LABS: Basophils # (auto) 0.02 K/uL (0-0.2); Basophils % (auto) 0.2 %; Hematocrit (blood only) 41.5 % (42-52); Hemoglobin 13.7 g/dL (14.0-18.0); Immature Granulocytes # (auto) 0.11 K/uL (0.00-0.02); Immature Granulocytes % (auto) 0.9 %; Lymphocytes # (auto) 0.49 K/uL (1.2-3.4); Lymphocytes % (auto) 3.9 %; Mean Corpuscular Hemoglobin 34.2 pg (25-34); Mean Corpuscular Volume 103.5 fL (80-100); Mean Platelet Volume 9.5 fL (7.4-10.4); Monocytes # (auto) 1.04 K/uL (0.11-0.59); Monocytes % (auto) 8.3 %; Neutrophils # (auto) 10.82 K/uL (1.4-6.5); Neutrophils % (auto) 86.7 %; Platelet Count 252 K/uL (130-400); RDW Coefficient of Variation 13.4 % (11.5-14.5); RDW Standard Deviation 50.4 fL (36.4-46.3); Red Blood Count 4.01 M/uL (4.7-6.1); White Blood Count 12.48 K/uL (4.8-10.8)
[2021-06-03] MEDS ORDERED: DOXYCYCLINE HYCLATE 100 MG CAP PO STA (13:41)
[2021-06-03] MEDS ORDERED: SODIUM CHLORIDE 0.9% 500 ML IV ONE (14:02)
[2021-06-03 14:24] LABS: Partial Thromboplastin Time 26.2 Seconds (21.0-31.0); Prothrombin Time 10.3 Seconds (9.0-12.0)
[2021-06-03 14:54] LABS: Influenza A virus by PCR Negative (Neg); Influenza B virus by PCR Negative (Neg); RSV by PCR Negative (Neg); SARS CoV2 RNA(COVID-19) InHosp NEGATIVE (Negative)
[2021-06-03 15:00] LABS: Albumin Globulin Ratio 1.1 (0.9-2); Albumin Level 3.3 gm/dl (3.4-5.0); BUN Creatinine Ratio 30.1 (10-20); Calcium 8.5 mg/dl (8.5-10.1); Creatinine Clr Calc Pharmacy 57.5 ml/min; Est GFR (African American) 75.9 ml/min; Est GFR (Non-African American) 65.5 ml/min; Magnesium 2.1 mg/dl (1.7-2.4); Potassium 4.3 mmol/L (3.5-5.1); Total Protein 6.3 gm/dl (6.0-8.3)
[2021-06-03 15:02] LABS: Troponin I 0.11 ng/ml (0-0.04)
[2021-06-03 16:00] LABS: Appearance Urine Clear (Clear); Bilirubin Urine Negative (Negative); Blood Urine Negative (Negative); Color Urine Yellow; Glucose Urine UA Negative (Negative); Ketones Urine Negative (Negative); Leukocyte Esterase Urine Negative (Negative); Nitrite Urine Negative (Negative); Protein Urine Negative (Negative); Specific Gravity Urine 1.018 (1.000-1.030); Urobilinogen Urine Negative (Negative); pH Urine 6.5 (4.5-7.5)
--- NOTE | 2021-06-03 16:56 | CT Scan Report ---
CT chest diagnostic wo con CLINICAL HISTORY: PNEUMONIA TECHNIQUE: Multidetector row helical CT of the chest was performed. Coronal and sagittal reformations were obtained. Automated dose lowering techniques and/or adjustment according to patient size were u tilized for this exam. Comparison: Comparison is made to CT chest 11/12/2020 FINDINGS: Lungs and pleura: There is a small right and trace left pleural effusion. Atelectasis and groundglass /consolidative opacities are seen. There remains an approximately 2 cm nodule in the lingula. Heart and pericardium: Cardiomegaly is seen with biatrial enlargement. Vessels: Moderate atherosclerotic changes in the aorta and coronary arteries. Mediastinum and papo: Scattered partially calcified lymph nodes are seen. Chest wall and lower neck: Unremarkable. Abdomen: A hiatal hernia is seen. Bones: Degenerative changes in the thoracic spine. IMPRESSION: 1. Bilateral pleural effusions. 2. Groundglass and consolidative opacities may represent infectious or inflammatory process. 3. Interval stability of approximately 2 cm lingula. 4. Calcified lymph nodes compatible with prior granulomatous disease. ACT 112: Negative or not required by law. Electronically signed by: Brandon Jensen M.D. 06/03/2021 4:55 PM
[2021-06-03] MEDS ORDERED: LEVALBUTEROL 1.25MG/0.5ML NEB INH PRN (18:08)
[2021-06-03] MEDS ORDERED: IPRATROPIUM BROMIDE NEB SOLN 0.02% 2.5 ML VIAL INH PRN (18:08)
[2021-06-03] MEDS ORDERED: ACETAMINOPHEN 325 MG TAB PO PRN (18:08)
[2021-06-03] MEDS ORDERED: XOPENEX/ATROVENT 1.25mg/0.5MG NEB COMBO NEB PRN (18:08)
--- NOTE | 2021-06-03 18:11 | History & Physical Report ---
Date of Service June 03, 2021 Assessment & Plan (1) Pneumonia: (2) Hypoxemia: Plan: 85 y/o male with history of CHF- systolic and diastolic type, DM 2, HTN, CKD 3, CIDP, Anemia, Depression presenting with shortness of breath, cough. BILATERAL PNEUMONIA ACUTE HYPOXIC RESPIRATORY FAILURE R/O COVID CXR: bibasilar infiltrate CT chest: 1. Bilateral pleural effusions. 2. Groundglass and consolidative opacities may represent infectious or inflammatory process. 3. Interval stability of approximately 2 cm lingula. 4. Calcified lymph nodes compatible with prior granulomatous disease. repeat COVID test tomorrow COVID isolation for now Ceftri + Doxy Incentive Spirometry ff up blood culture ff up sputum culture MILD TROPONIN ELEVATION no chest pain EKG pending trop x 2 more sets already on ASA, Metoprolol, Lisinopril POSSIBLE ACUTE METABOLIC ENCEPHALOPATHY likely from underlying pneumonia monitor DM 2 not on medication BSG 122 HTN on the lower side hold Lisinopril continue Metoprolol CKD 3 at baseline CIDP continue Prednisone GERD continue Pepcid ANEMIA Hg 13.7 DEPRESSION continue Escitalopram, Bupropion DVT prophylaxis Lovenox SC Disposition pending Admission and Anticipated Discharge Date Admission Date: June 03, 2021 History of Present Illness Chief Complaint: 85 y/o male with history of CHF- systolic and diastolic type, DM 2, HTN, CKD 3, CIDP, Anemia, Depression presenting with shortness of breath, cough. Primary Care Provider: Uriel Comer DO Allergies Allergy/AdvReac Type Severity Reaction Status Date / Time simvastatin AdvReac Mild leg pain Verified 06/03/21 14:16 tramadol [From Ultram] AdvReac Mild Hallucinati Verified 06/03/21 14:16 ng Home Medications Medication Instructions Recorded Confirmed Type alendronate 70 mg tablet (Fosamax) 70 mg PO WK 02/17/18 06/03/21 History ascorbic acid (vitamin C) 500 mg 500 mg PO QAM 02/17/18 06/03/21 History tablet cholecalciferol (vitamin D3) 25 1,000 unit PO QAM 02/17/18 06/03/21 History mcg (1,000 unit) tablet (Vitamin D3) cyanocobalamin (vitamin B-12) 1,000 mcg PO QAM 02/17/18 06/03/21 History 1,000 mcg tablet (Vitamin B-12) multivitamin 1 tab PO QAM 02/17/18 06/03/21 History famotidine 20 mg tablet (Acid 20 mg PO HS 12/04/19 06/03/21 History [facility] (famotidine)) aspirin 81 mg tablet,delayed 81 mg PO QAM 11/12/20 06/03/21 History release bupropion HCl 150 mg 24 hr tablet, 150 mg PO QAM 11/12/20 06/03/21 History extended release escitalopram oxalate 20 mg tablet 10 mg PO QDD 06/03/21 06/03/21 History furosemide 40 mg tablet 40 mg PO QAM 06/03/21 06/03/21 History lisinopril 5 mg tablet 5 mg PO QAM 06/03/21 06/03/21 History metoprolol succinate 50 mg 50 mg PO QAM 06/03/21 06/03/21 History tablet,extended release 24 hr prednisone 10 mg tablet 10 mg PO QAM 06/03/21 06/03/21 History Past Med/Surg History Medical History Anxiety CIDP (chronic inflammatory demyelinating polyneuropathy) Eduard Grande; Dr. Guzman/ [facility] q 3 months Pt has numbness in feet/ankles, some numbness in fingers. On daily Prednisone 10mg . Depression GERD (gastroesophageal reflux disease) Hypertension Left bundle branch block (LBBB) Mild aortic stenosis Osteoporosis Surgical History History of anesthesia reaction SLOW TO WAKE UP-W GALL BLADDER [facility] History of cataract surgery RT/LT History of colonoscopy History of esophagogastroduodenoscopy (EGD) History of tooth extraction all teeth History of total left hip replacement Hx of cholecystectomy S/P laparoscopic cholecystectomy Status post right hip replacement (~12/2019) Family History Father Heart disease Other No family history of adverse response to anesthesia Social History Smoking Status: Never smoker Second Hand Exposure: No; Hx Alcohol Use: No Hx Substance Use: No Preferred Language: Libyan Communication Ability: Effective Visual Impairment: Limited Hearing Ability: Hard of Hearing 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 Operator Required: No Beliefs That Will Affect Care: None marital status: Current Living Situation: Spouse Feels Safe at Home: Yes Assistive Devices: Denture - Upper, Denture - Lower, Hearing Aid - Bilateral and Walker Results & Data Results & Data ([facility]) Vital Signs (Past 12 Hours) Vital Signs Temp Pulse Pulse Resp BP BP Pulse Ox 06/03/21 17:30 79 21 123/69 93 06/03/21 17:00 77 19 110/64 95 06/03/21 16:30 20 96 06/03/21 16:00 78 21 117/71 96 06/03/21 15:30 81 19 116/73 94 06/03/21 15:00 80 81 18 112/63 112/63 95 06/03/21 14:30 95 06/03/21 14:03 94 06/03/21 13:09 78 18 94 06/03/21 12:59 37.2 C 78 18 104/61 94 Code Status & VTE Plan VTE Prophylaxis Plan VTE Prophylaxis will be ordered: Yes (1) Pneumonia Laterality: bilateral Lung location: lower lobe of lung Pneumonia type: due to unspecified organism Qualified Code(s): J18.9 - Pneumonia, unspecified organism
[2021-06-03] MEDS: FAMOTIDINE 20 MG TAB PO SCH (23:05)
[2021-06-03] MEDS: ESCITALOPRAM OXALATE 10 MG TAB PO SCH (23:05)
[2021-06-03] MEDS: cefTRIAXone SODIUM 2,000 MG in DEXTROSE 5% 50 ML IV SCH (23:05)
[2021-06-03] MEDS: DOXYCYCLINE HYCLATE 100 MG CAP PO SCH (23:05)
[2021-06-04 06:41] LABS: Basophils # (auto) 0.02 K/uL (0-0.2); Basophils % (auto) 0.2 %; Eosinophils # (auto) 0.03 K/uL (0-0.5); Eosinophils % (auto) 0.3 %; Hematocrit (blood only) 39.9 % (42-52); Hemoglobin 12.9 g/dL (14.0-18.0); Immature Granulocytes # (auto) 0.12 K/uL (0.00-0.02); Immature Granulocytes % (auto) 1.1 %; Lymphocytes # (auto) 0.82 K/uL (1.2-3.4); Lymphocytes % (auto) 7.6 %; Mean Corpuscular Hemoglobin 33.5 pg (25-34); Mean Corpuscular Hgb Conc 32.3 g/dL (32-36); Mean Corpuscular Volume 103.6 fL (80-100); Mean Platelet Volume 9.3 fL (7.4-10.4); Monocytes # (auto) 1.18 K/uL (0.11-0.59); Neutrophils # (auto) 8.56 K/uL (1.4-6.5); Neutrophils % (auto) 79.8 %; Platelet Count 236 K/uL (130-400); RDW Coefficient of Variation 13.5 % (11.5-14.5); RDW Standard Deviation 50.8 fL (36.4-46.3); Red Blood Count 3.85 M/uL (4.7-6.1); White Blood Count 10.73 K/uL (4.8-10.8)
[2021-06-04 07:05] LABS: BUN Creatinine Ratio 27.6 (10-20); Creatinine Clr Calc Pharmacy 67.5 ml/min; Est GFR (African American) 90.6 ml/min; Est GFR (Non-African American) 78.1 ml/min; Potassium 3.9 mmol/L (3.5-5.1)
[2021-06-04] MEDS: buPROPion XL 150 MG TABCR PO SCH (10:59)
[2021-06-04] MEDS: MULTIVITAMIN TAB PO SCH (11:00)
[2021-06-04] MEDS: predniSONE 10 MG TABLET PO SCH (11:00)
[2021-06-04] MEDS: METOPROLOL SUCC 50MG EXT REL TAB PO SCH (11:00)
[2021-06-04] MEDS: DOXYCYCLINE HYCLATE 100 MG CAP PO SCH ×2 (13:45→20:54)
[2021-06-04] MEDS: ASPIRIN 81 MG ECTAB PO SCH (13:45)
--- NOTE | 2021-06-04 15:22 | Electrocardiogram Report ---
Test Reason : Blood Pressure : / mmHG Vent. Rate : 077 BPM Atrial Rate : 077 BPM P-R Int : 174 ms QRS Dur : 138 ms QT Int : 436 ms P-R-T Axes : 041 -54 114 degrees QTc Int : 493 ms Normal sinus rhythm Left axis deviation Left bundle branch block Abnormal ECG When compared with ECG of 14-NOV-2020 05:42, Prior tracing has L arm L leg lead reversal, otherwise no change Confirmed by Roland Castro ([id number]) on 06/04/2021 3:21:52 PM Referred By: Uriel Comer Confirmed By:Roland Castro
--- NOTE | 2021-06-04 17:04 | Electrocardiogram Report ---
Test Reason : Blood Pressure : / mmHG Vent. Rate : 086 BPM Atrial Rate : 086 BPM P-R Int : 166 ms QRS Dur : 156 ms QT Int : 432 ms P-R-T Axes : 041 -46 107 degrees QTc Int : 516 ms Normal sinus rhythm Left axis deviation Left bundle branch block Abnormal ECG When compared with ECG of 03-JUN-2021 12:36, (unconfirmed) No significant change was found Confirmed by Roland Castro ([id number]) on 06/04/2021 5:04:14 PM Referred By: Uriel Comer Confirmed By:Roland Castro
[2021-06-04] MEDS: ESCITALOPRAM OXALATE 10 MG TAB PO SCH (17:44)
--- NOTE | 2021-06-04 18:09 | Hospitalist Progress Note ---
Date of Service June 04, 2021 Assessment & Plan (1) Pneumonia: (2) Hypoxemia: Plan: 85 y/o male with history of CHF- systolic and diastolic type, DM 2, HTN, CKD 3, CIDP, Anemia, Depression presenting with shortness of breath, cough. BILATERAL PNEUMONIA ACUTE HYPOXIC RESPIRATORY FAILURE 2nd COVID screen negative CXR: bibasilar infiltrate CT chest: 1. Bilateral pleural effusions. 2. Groundglass and consolidative opacities may represent infectious or inflammatory process. 3. Interval stability of approximately 2 cm lingula. 4. Calcified lymph nodes compatible with prior granulomatous disease. remains on 2 L O2 via NC continue Ceftri + Doxy Day 2 Incentive Spirometry ff up blood culture ff up sputum culture MILD TROPONIN ELEVATION no chest pain EKG no signs of acute ischemia trop x 2 negative already on ASA, Metoprolol, Lisinopril POSSIBLE ACUTE METABOLIC ENCEPHALOPATHY likely from underlying pneumonia answers questions appropriately DM 2 not on medication BSG 91 HTN on the lower side hold Lisinopril continue Metoprolol gentle IV NSS CKD 3 at baseline CIDP continue Prednisone 10 mg po daily GERD continue Pepcid ANEMIA Hg stable 12-13 DEPRESSION continue Escitalopram, Bupropion DVT prophylaxis Lovenox SC Disposition pending Admission and Anticipated Discharge Date Admission Date: June 03, 2021 Subjective ff up for bilateral pneumonia, etc seen resting in bed, comfortable in 2- 3 L o2 via nasal cannula not in distress states he feels better today compared to yesterday no chest pain, dyspnea, palpitations, dizziness less cough no other symptoms Review of Systems Review of Systems: all noted and negative except for above Physical Exam Physical Exam: General- oriented x 2, not in distress, speaks in sentences with no effort or accessory muscle use Eyes- anicteric Neck- no JVD Lungs- mild rhonchi right base clear on the left Heart- normal rate, regular rhythm; no murmurs Abdomen- normal bowel sounds, nondistended, soft, nontender Extremities- no pretibial edema, no calf tenderness Neuro- alert, oriented x 2; no new gross focal neurologic deficits Skin- warm & dry Results & Data Results & Data ([facility]) Vital Signs (Past 12 Hours) Vital Signs Temp Pulse Resp BP BP Pulse Ox 06/04/21 14:56 36.9 C 84 21 95/57 L 93 06/04/21 11:54 36.7 C 83 21 103/59 L 92 06/04/21 07:54 36.7 C 84 19 121/73 93 all noted and reviewed including below (1) Pneumonia Laterality: bilateral Lung location: lower lobe of lung Pneumonia type: due to unspecified organism Qualified Code(s): J18.9 - Pneumonia, unspecified organism
[2021-06-04] MEDS ORDERED: SODIUM CHLORIDE 0.9% 1000ML 1,000 ML IV SCH (18:15)
[2021-06-04] MEDS: FAMOTIDINE 20 MG TAB PO SCH (20:54)
[2021-06-04] MEDS: cefTRIAXone SODIUM 2,000 MG in DEXTROSE 5% 50 ML IV SCH (20:56)
[2021-06-04] MEDS ORDERED: FUROSEMIDE INJ 20 MG/2 ML VIAL IV ONE (23:10)
[2021-06-05 07:04] LABS: Basophils # (auto) 0.01 K/uL (0-0.2); Basophils % (auto) 0.1 %; Eosinophils # (auto) 0.04 K/uL (0-0.5); Eosinophils % (auto) 0.4 %; Hematocrit (blood only) 38.5 % (42-52); Hemoglobin 12.5 g/dL (14.0-18.0); Lymphocytes # (auto) 0.55 K/uL (1.2-3.4); Lymphocytes % (auto) 5.3 %; Mean Corpuscular Hemoglobin 33.4 pg (25-34); Mean Corpuscular Hgb Conc 32.5 g/dL (32-36); Mean Corpuscular Volume 102.9 fL (80-100); Mean Platelet Volume 9.2 fL (7.4-10.4); Monocytes # (auto) 1.22 K/uL (0.11-0.59); Monocytes % (auto) 11.8 %; Neutrophils # (auto) 8.39 K/uL (1.4-6.5); Neutrophils % (auto) 81.4 %; Platelet Count 265 K/uL (130-400); RDW Coefficient of Variation 13.3 % (11.5-14.5); RDW Standard Deviation 49.9 fL (36.4-46.3); Red Blood Count 3.74 M/uL (4.7-6.1); White Blood Count 10.31 K/uL (4.8-10.8)
[2021-06-05 07:29] LABS: BUN Creatinine Ratio 24.7 (10-20); Calcium 7.9 mg/dl (8.5-10.1); Creatinine Clr Calc Pharmacy 76.7 ml/min; Est GFR (African American) 95.2 ml/min; Est GFR (Non-African American) 82.2 ml/min; Potassium 3.7 mmol/L (3.5-5.1)
[2021-06-05] MEDS: ASPIRIN 81 MG ECTAB PO SCH (08:44)
[2021-06-05] MEDS: METOPROLOL SUCC 50MG EXT REL TAB PO SCH (08:44)
[2021-06-05] MEDS: DOXYCYCLINE HYCLATE 100 MG CAP PO SCH ×2 (08:44→20:28)
[2021-06-05] MEDS: buPROPion XL 150 MG TABCR PO SCH (08:44)
[2021-06-05] MEDS: predniSONE 10 MG TABLET PO SCH (08:44)
[2021-06-05] MEDS: MULTIVITAMIN TAB PO SCH (08:44)
[2021-06-05] MEDS: ESCITALOPRAM OXALATE 10 MG TAB PO SCH (16:18)
--- NOTE | 2021-06-05 17:06 | Hospitalist Progress Note ---
Date of Service June 05, 2021 Assessment & Plan (1) Pneumonia: (2) Hypoxemia: Plan: 85 y/o male with history of CHF- systolic and diastolic type, DM 2, HTN, CKD 3, CIDP, Anemia, Depression presenting with shortness of breath, cough. BILATERAL PNEUMONIA ACUTE HYPOXIC RESPIRATORY FAILURE 2nd COVID screen negative CXR: bibasilar infiltrate CT chest: 1. Bilateral pleural effusions. 2. Groundglass and consolidative opacities may represent infectious or inflammatory process. 3. Interval stability of approximately 2 cm lingula. 4. Calcified lymph nodes compatible with prior granulomatous disease. blood culture: negative remains on 3 L O2 via NC clinically improving continue Ceftri + Doxy Day 3 encouraged to use Incentive Spirometry wean off oxygen accordingly MILD TROPONIN ELEVATION no chest pain EKG no signs of acute ischemia trop x 2 negative already on ASA, Metoprolol, Lisinopril POSSIBLE ACUTE METABOLIC ENCEPHALOPATHY likely from underlying pneumonia oriented, answers questions appropriately DM 2 not on medication BSG 98 HTN BP improved hold Lisinopril for now continue Metoprolol gentle IV NSS given CKD 3 at baseline CIDP continue Prednisone 10 mg po daily GERD continue Pepcid ANEMIA Hg stable 12-13 DEPRESSION continue Escitalopram, Bupropion DVT prophylaxis Lovenox SC Disposition pending lives at home with his PT/OT evaluation ordered Admission and Anticipated Discharge Date Admission Date: June 03, 2021 Subjective Follow-up for bilateral pneumonia, etc. Seen sitting up in bedside chair, comfortable, not in distress 2 L of oxygen via nasal cannula Awake, alert, oriented, answers most questions appropriately States he feels improved today Breathing is improving, less cough no chest pain, dyspnea, palpitations, dizziness No fevers or chills No other symptoms Review of Systems Review of Systems: all noted and negative except for above Physical Exam Physical Exam: General- oriented x 2, not in distress, speaks in sentences with no effort or accessory muscle use Eyes- anicteric Neck- no JVD Lungs-positive mild rhonchi right base, clear on the left Heart- normal rate, regular rhythm; no murmurs Abdomen- normal bowel sounds, nondistended, soft, nontender Extremities- no pretibial edema, no calf tenderness Neuro- alert, oriented x 2; no new gross focal neurologic deficits Skin- warm & dry Results & Data Results & Data ([facility]) Vital Signs (Past 12 Hours) Vital Signs Temp Pulse Pulse Resp BP BP Pulse Ox 06/05/21 15:47 36.5 C 77 20 136/83 97 06/05/21 14:54 06/05/21 11:22 36.9 C 79 20 111/59 L 94 06/05/21 11:00 77 06/05/21 07:48 36.9 C 84 21 105/71 92 Pulse Ox Pulse Ox Pulse Ox 06/05/21 15:47 06/05/21 14:54 91 95 88 L 06/05/21 11:22 06/05/21 11:00 06/05/21 07:48 all noted and reviewed including below (1) Pneumonia Laterality: bilateral Lung location: lower lobe of lung Pneumonia type: due to unspecified organism Qualified Code(s): J18.9 - Pneumonia, unspecified organism
[2021-06-05] MEDS: FAMOTIDINE 20 MG TAB PO SCH (20:28)
[2021-06-05] MEDS: ENOXAPARIN INJ 40 MG/0.4 ML SYR SQ SCH (20:28)
[2021-06-05] MEDS: cefTRIAXone SODIUM 2,000 MG in DEXTROSE 5% 50 ML IV SCH (20:33)
[2021-06-06 07:35] LABS: Basophils # (auto) 0.01 K/uL (0-0.2); Basophils % (auto) 0.1 %; Eosinophils # (auto) 0.07 K/uL (0-0.5); Eosinophils % (auto) 0.8 %; Hematocrit (blood only) 39.7 % (42-52); Hemoglobin 12.9 g/dL (14.0-18.0); Immature Granulocytes # (auto) 0.08 K/uL (0.00-0.02); Immature Granulocytes % (auto) 0.9 %; Mean Corpuscular Hemoglobin 33.9 pg (25-34); Mean Corpuscular Hgb Conc 32.5 g/dL (32-36); Mean Corpuscular Volume 104.2 fL (80-100); Mean Platelet Volume 9.2 fL (7.4-10.4); Monocytes # (auto) 1.02 K/uL (0.11-0.59); Monocytes % (auto) 11.6 %; Neutrophils # (auto) 6.92 K/uL (1.4-6.5); Neutrophils % (auto) 78.6 %; Platelet Count 276 K/uL (130-400); RDW Coefficient of Variation 13.2 % (11.5-14.5); RDW Standard Deviation 50.3 fL (36.4-46.3); Red Blood Count 3.81 M/uL (4.7-6.1)
[2021-06-06 08:07] LABS: BUN Creatinine Ratio 24.4 (10-20); Calcium 8.1 mg/dl (8.5-10.1); Creatinine Clr Calc Pharmacy 75.2 ml/min; Est GFR (African American) 94.7 ml/min; Est GFR (Non-African American) 81.7 ml/min; Potassium 3.8 mmol/L (3.5-5.1)
[2021-06-06] MEDS: predniSONE 10 MG TABLET PO SCH (09:09)
[2021-06-06] MEDS: DOXYCYCLINE HYCLATE 100 MG CAP PO SCH ×2 (09:09→20:10)
[2021-06-06] MEDS: METOPROLOL SUCC 50MG EXT REL TAB PO SCH (09:09)
[2021-06-06] MEDS: MULTIVITAMIN TAB PO SCH (09:09)
[2021-06-06] MEDS: ASPIRIN 81 MG ECTAB PO SCH (09:09)
[2021-06-06] MEDS: buPROPion XL 150 MG TABCR PO SCH (09:09)
--- NOTE | 2021-06-06 16:32 | Hospitalist Progress Note ---
Date of Service June 06, 2021 Assessment & Plan (1) Pneumonia: (2) Hypoxemia: Plan: 85 y/o male with history of CHF- systolic and diastolic type, DM 2, HTN, CKD 3, CIDP, Anemia, Depression presenting with shortness of breath, cough. BILATERAL PNEUMONIA ACUTE HYPOXIC RESPIRATORY FAILURE 2nd COVID screen negative CXR: bibasilar infiltrate CT chest: 1. Bilateral pleural effusions. 2. Groundglass and consolidative opacities may represent infectious or inflammatory process. 3. Interval stability of approximately 2 cm lingula. 4. Calcified lymph nodes compatible with prior granulomatous disease. blood culture: negative remains on 3 L O2 via NC gradually improving continue Ceftri + Doxy Day 4 encouraged to use Incentive Spirometry wean off oxygen accordingly MILD TROPONIN ELEVATION no chest pain EKG no signs of acute ischemia trop x 2 negative already on ASA, Metoprolol, Lisinopril POSSIBLE ACUTE METABOLIC ENCEPHALOPATHY likely from underlying pneumonia oriented, answers questions appropriately DM 2 not on medication BSG 87 HTN BP improved, stable overall hold Lisinopril for now continue Metoprolol gentle IV NSS given CKD 3 at baseline CIDP continue Prednisone 10 mg po daily GERD continue Pepcid ANEMIA Hg stable 12-13 DEPRESSION continue Escitalopram, Bupropion DVT prophylaxis Lovenox SC Disposition pending lives at home with his PT/OT evaluation ordered: recommending to transition to Rehab Admission and Anticipated Discharge Date Admission Date: June 03, 2021 Subjective ff up for pneumonia, etc seen resting in bed, comfortable in 3 L NC states he continues to feel improved breathing and cough improving no chest pain no nausea/vomiting, abdominal pain still having some generalized weakness no other symptoms Review of Systems Review of Systems: all noted and negative except for above Physical Exam Physical Exam: General- oriented x 2, not in distress, speaks in sentences with no effort or accessory muscle use Eyes- anicteric Neck- no JVD Lungs- mild rhonchi at the right base, clear breath sounds on the left no wheezing Heart- normal rate, regular rhythm; no murmurs Abdomen- normal bowel sounds, nondistended, soft, nontender Extremities- no pretibial edema, no calf tenderness Neuro- alert, oriented x 2; no gross focal neurologic deficits Skin- warm & dry Results & Data Results & Data ([facility]) Vital Signs (Past 12 Hours) Vital Signs Temp Pulse Pulse Resp BP Pulse Ox 06/06/21 16:25 77 06/06/21 14:42 36.8 C 78 20 122/72 95 06/06/21 11:35 36.4 C L 76 20 122/77 96 06/06/21 11:07 75 06/06/21 10:56 92 06/06/21 08:30 75 06/06/21 07:32 37.0 C 82 20 123/79 92 06/06/21 05:00 93 all noted and reviewed including below (1) Pneumonia Laterality: bilateral Lung location: lower lobe of lung Pneumonia type: due to unspecified organism Qualified Code(s): J18.9 - Pneumonia, unspecified organism
[2021-06-06] MEDS: ENOXAPARIN INJ 40 MG/0.4 ML SYR SQ SCH (17:27)
[2021-06-06] MEDS: ESCITALOPRAM OXALATE 10 MG TAB PO SCH (17:27)
[2021-06-06] MEDS: FAMOTIDINE 20 MG TAB PO SCH (20:09)
[2021-06-06] MEDS: cefTRIAXone SODIUM 2,000 MG in DEXTROSE 5% 50 ML IV SCH (20:25)
[2021-06-07 08:14] LABS: Basophils # (auto) 0.03 K/uL (0-0.2); Basophils % (auto) 0.4 %; Eosinophils % (auto) 1.2 %; Hematocrit (blood only) 40.8 % (42-52); Hemoglobin 13.2 g/dL (14.0-18.0); Immature Granulocytes # (auto) 0.14 K/uL (0.00-0.02); Immature Granulocytes % (auto) 1.7 %; Lymphocytes # (auto) 0.77 K/uL (1.2-3.4); Lymphocytes % (auto) 9.4 %; Mean Corpuscular Hemoglobin 33.7 pg (25-34); Mean Corpuscular Hgb Conc 32.4 g/dL (32-36); Mean Corpuscular Volume 104.1 fL (80-100); Mean Platelet Volume 9.4 fL (7.4-10.4); Monocytes # (auto) 0.79 K/uL (0.11-0.59); Monocytes % (auto) 9.6 %; Neutrophils # (auto) 6.36 K/uL (1.4-6.5); Neutrophils % (auto) 77.7 %; Platelet Count 301 K/uL (130-400); RDW Coefficient of Variation 13.3 % (11.5-14.5); RDW Standard Deviation 49.8 fL (36.4-46.3); Red Blood Count 3.92 M/uL (4.7-6.1); White Blood Count 8.19 K/uL (4.8-10.8)
[2021-06-07 08:41] LABS: BUN Creatinine Ratio 25.6 (10-20); Calcium 8.4 mg/dl (8.5-10.1); Creatinine Clr Calc Pharmacy 71.5 ml/min; Est GFR (African American) 92.8 ml/min; Est GFR (Non-African American) 80.1 ml/min; Potassium 3.8 mmol/L (3.5-5.1)
[2021-06-07] MEDS: buPROPion XL 150 MG TABCR PO SCH (09:51)
[2021-06-07] MEDS: METOPROLOL SUCC 50MG EXT REL TAB PO SCH (09:51)
[2021-06-07] MEDS: predniSONE 10 MG TABLET PO SCH (09:51)
[2021-06-07] MEDS: MULTIVITAMIN TAB PO SCH (09:51)
[2021-06-07] MEDS: ASPIRIN 81 MG ECTAB PO SCH (09:51)
[2021-06-07] MEDS: DOXYCYCLINE HYCLATE 100 MG CAP PO SCH ×2 (09:51→20:40)
--- NOTE | 2021-06-07 16:03 | Hospitalist Progress Note ---
Date of Service June 07, 2021 Assessment & Plan (1) Pneumonia: (2) Hypoxemia: Plan: 85 y/o male with history of CHF- systolic and diastolic type, DM 2, HTN, CKD 3, CIDP, Anemia, Depression presenting with shortness of breath, cough. BILATERAL PNEUMONIA ACUTE HYPOXIC RESPIRATORY FAILURE 2nd COVID screen negative CXR: bibasilar infiltrate CT chest: 1. Bilateral pleural effusions. 2. Groundglass and consolidative opacities may represent infectious or inflammatory process. 3. Interval stability of approximately 2 cm lingula. 4. Calcified lymph nodes compatible with prior granulomatous disease. blood culture: negative remains on 2-3 L O2 via NC continues to improve clinically continue Ceftri + Doxy Day 08/21 encouraged to use Incentive Spirometry wean off oxygen accordingly MILD TROPONIN ELEVATION no chest pain EKG no signs of acute ischemia trop x 2 negative already on ASA, Metoprolol, Lisinopril POSSIBLE ACUTE METABOLIC ENCEPHALOPATHY likely from underlying pneumonia oriented, answers questions appropriately DM 2 not on medication BSG 80 HTN BP within normal range hold Lisinopril for now to prevent hypotension continue Metoprolol CKD 3 at baseline CIDP continue Prednisone 10 mg po daily GERD continue Pepcid ANEMIA Hg stable 12-13 DEPRESSION continue Escitalopram, Bupropion DVT prophylaxis Lovenox SC Disposition pending lives at home with his PT/OT evaluation ordered: recommending to transition to Rehab Admission and Anticipated Discharge Date Admission Date: June 03, 2021 Subjective ff up for bilateral pneumonia, etc. Seen sitting up in bed, on 2 L of oxygen via nasal cannula Alert, oriented x2, answers all questions appropriately States he continues to feel improved No active shortness of breath, chest pain, cough, palpitations, dizziness No other symptoms Review of Systems Review of Systems: all noted and negative except for above Physical Exam Physical Exam: General- oriented x 3, not in distress, speaks in sentences with no effort or accessory muscle use Eyes- anicteric Neck- no JVD Lungs- clear breath sounds bilaterally, no crackles/wheezing Heart- normal rate, regular rhythm; no murmurs Abdomen- normal bowel sounds, nondistended, soft, nontender Extremities- no pretibial edema, no calf tenderness Neuro- alert, oriented x 3; no gross focal neurologic deficits Skin- warm & dry Results & Data Results & Data ([facility]) Vital Signs (Past 12 Hours) Vital Signs Temp Pulse Pulse Pulse Resp BP BP 06/07/21 15:01 36.6 C 82 20 142/83 H 06/07/21 11:05 36.5 C 87 15 120/74 06/07/21 08:00 79 06/07/21 07:28 36.8 C 79 20 123/80 06/07/21 07:20 36.6 C 81 17 144/74 H Pulse Ox 06/07/21 15:01 92 06/07/21 11:05 95 06/07/21 08:00 06/07/21 07:28 94 06/07/21 07:20 95 all noted and reviewed including below (1) Pneumonia Laterality: bilateral Lung location: lower lobe of lung Pneumonia type: due to unspecified organism Qualified Code(s): J18.9 - Pneumonia, unspecified organism
[2021-06-07] MEDS: ESCITALOPRAM OXALATE 10 MG TAB PO SCH (16:38)
[2021-06-07] MEDS: ENOXAPARIN INJ 40 MG/0.4 ML SYR SQ SCH (18:34)
[2021-06-07] MEDS: FAMOTIDINE 20 MG TAB PO SCH (20:40)
[2021-06-07] MEDS: cefTRIAXone SODIUM 2,000 MG in DEXTROSE 5% 50 ML IV SCH (20:46)
[2021-06-08] MEDS: MULTIVITAMIN TAB PO SCH (07:42)
[2021-06-08] MEDS: DOXYCYCLINE HYCLATE 100 MG CAP PO SCH ×2 (07:42→20:50)
[2021-06-08] MEDS: METOPROLOL SUCC 50MG EXT REL TAB PO SCH (07:42)
[2021-06-08] MEDS: predniSONE 10 MG TABLET PO SCH (07:42)
[2021-06-08] MEDS: buPROPion XL 150 MG TABCR PO SCH (07:42)
[2021-06-08] MEDS: ASPIRIN 81 MG ECTAB PO SCH (07:43)
[2021-06-08] MEDS: ASCORBIC ACID 500 MG TAB PO SCH (09:00)
[2021-06-08] MEDS: CYANOCOBALAMIN (B-12) 500 MCG TABLET PO SCH (09:01)
[2021-06-08] MEDS: FUROSEMIDE 40 MG TAB PO SCH (09:01)
[2021-06-08] MEDS: CHOLECALCIFEROL 1,000 UNITS 25 MCG TAB PO SCH (09:01)
--- NOTE | 2021-06-08 15:08 | Hospitalist Progress Note ---
Date of Service June 08, 2021 Assessment & Plan (1) Pneumonia: (2) Hypoxemia: Plan: 85 y/o male with history of CHF- systolic and diastolic type, DM 2, HTN, CKD 3, CIDP, Anemia, Depression presenting with shortness of breath, cough. BILATERAL PNEUMONIA ACUTE HYPOXIC RESPIRATORY FAILURE COVID test negative x 2 CXR: bibasilar infiltrate CT chest: 1. Bilateral pleural effusions. 2. Groundglass and consolidative opacities may represent infectious or inflammatory process. 3. Interval stability of approximately 2 cm lingula. 4. Calcified lymph nodes compatible with prior granulomatous disease. blood culture: negative remains on 2-3 L O2 via NC has shown clinical improvement since admission continue Ceftri + Doxy Day / encouraged to use Incentive Spirometry wean off oxygen accordingly awaiting acceptance to Rehab MILD TROPONIN ELEVATION HISTORY OF CHRONIC CHF, SYSTOLIC AND DIASTOLIC TYPE no chest pain EKG no signs of acute ischemia trop x 2 negative already on ASA, Metoprolol Lisinopril held initially due to BP on the lower side- resume accordingly patien initially on the dry side, now euvolemic, Lasix PO resumed today POSSIBLE ACUTE METABOLIC ENCEPHALOPATHY, Resolved likely from underlying pneumonia now oriented, answers questions appropriately DM 2 not on medication no hyperglyemia noted HTN BP within normal range Lisinopril held initially due to BP on the lower side- resume accordingly continue Metoprolol CKD 3 at baseline CIDP continue Prednisone 10 mg po daily GERD continue Pepcid ANEMIA Hg stable 12-13 DEPRESSION continue Escitalopram, Bupropion DVT prophylaxis Lovenox SC Disposition pending lives at home with his PT/OT evaluation ordered: recommending to transition to Rehab plan of care discussed with patient and his daughter Celi in detail and at length all questions answered they are understanding, agreeable, comfortable with the plan of care Admission and Anticipated Discharge Date Admission Date: June 03, 2021 Subjective ff up for Bilateral pneumonia, etc seen resting in bedside chair, comfortable on 3 L of o2 via nasal cannula alert, oriented states he continues to feel improved breathing is improving able to expectorate yellow phlegm no chest pain no other symptoms Review of Systems Review of Systems: all noted and negative except for above Physical Exam Physical Exam: General- oriented x 2, not in distress, speaks in sentences with no effort or accessory muscle use Eyes- anicteric Neck- no JVD Lungs- clear breath sounds bilaterally, no crackles or wheezing noted Heart- normal rate, regular rhythm; no murmurs Abdomen- normal bowel sounds, nondistended, soft, nontender Extremities- no pretibial edema, no calf tenderness Neuro- alert, oriented x 2; no new gross focal neurologic deficits Skin- warm & dry Results & Data [facility] Vital Signs (Past 12 Hours) Vital Signs Temp Pulse Pulse Resp BP Pulse Ox 06/08/21 14:56 73 06/08/21 14:47 36.5 C 84 21 155/83 H 96 06/08/21 10:47 36.6 C 84 21 123/75 96 06/08/21 07:24 62 06/08/21 05:43 36.6 C 69 18 125/63 95 06/08/21 04:00 36.6 C 59 L 20 131/66 94 (1) Pneumonia Laterality: bilateral Lung location: lower lobe of lung Pneumonia type: due to unspecified organism Qualified Code(s): J18.9 - Pneumonia, unspecified organism
[2021-06-08] MEDS: ESCITALOPRAM OXALATE 10 MG TAB PO SCH (17:21)
[2021-06-08] MEDS: ENOXAPARIN INJ 40 MG/0.4 ML SYR SQ SCH (17:22)
[2021-06-08] MEDS: cefTRIAXone SODIUM 2,000 MG in DEXTROSE 5% 50 ML IV SCH (20:50)
[2021-06-08] MEDS: FAMOTIDINE 20 MG TAB PO SCH (20:50)
[2021-06-09] MEDS: predniSONE 10 MG TABLET PO SCH (08:26)
[2021-06-09] MEDS: CYANOCOBALAMIN (B-12) 500 MCG TABLET PO SCH (08:26)
[2021-06-09] MEDS: MULTIVITAMIN TAB PO SCH (08:26)
[2021-06-09] MEDS: ASPIRIN 81 MG ECTAB PO SCH (08:26)
[2021-06-09] MEDS: DOXYCYCLINE HYCLATE 100 MG CAP PO SCH ×2 (08:26→21:00)
[2021-06-09] MEDS: ASCORBIC ACID 500 MG TAB PO SCH (08:27)
[2021-06-09] MEDS: CHOLECALCIFEROL 1,000 UNITS 25 MCG TAB PO SCH (08:27)
[2021-06-09] MEDS: METOPROLOL SUCC 50MG EXT REL TAB PO SCH (08:27)
[2021-06-09] MEDS: FUROSEMIDE 40 MG TAB PO SCH (08:27)
[2021-06-09] MEDS: buPROPion XL 150 MG TABCR PO SCH (08:27)
--- NOTE | 2021-06-09 14:15 | Hospitalist Progress Note ---
Date of Service June 09, 2021 Assessment & Plan (1) Acute respiratory failure with hypoxia: (2) Pneumonia: Plan: Acute hypoxic respiratory failure 2/2 pneumonia Continues on IV Ceftriaxone and Doxy-complete course within one day. Cultures are negative and he is clinically improved. remains on 2-3 L O2 via [place] Pt and daughter report improvement since admission encouraged to use Incentive Spirometry wean off oxygen accordingly awaiting acceptance to Rehab-denied by [facility]SNF referrals in place. Elevated troponin chronic diastolic CHF no chest pain and current dyspnea with exertion is likely related to pneumonia. EKG no signs of acute ischemia already on ASA, Metoprolol Lisinopril held initially due to BP on the lower side- resume accordingly patient also initially on the dry side, now euvolemic, Lasix was restarted Possible acute metabolic encephalopathy 2/2 underlying infection from pneumonia, resolved currently oriented to baseline. DM 2 diet controlled, not on medication no hyperglycemia noted this admission HTN BP within normal range Lisinopril held initially due to BP on the lower side- resume accordingly, will cont to hold for now. continue Metoprolol CKD 3 chronic, creatinine at baseline CIDP chronic, stable. Continue Prednisone 10 mg po daily per home regimen. GERD chronic, stable. continue Pepcid HS per home regimen. Chronic anemia Hg stable 12-13 Depression chronic, stable. continue Escitalopram, Bupropion per home regimen. DVT prophylaxis Lovenox SC Disposition pending lives at home with his PT/OT evaluation ordered: recommending to transition to Rehab plan of care discussed with patient and his daughter who was at bedside with him today all questions answered they are understanding, agreeable, comfortable with the plan of care. Awaiting authorization for rehab. Airam Shah DO [facility] Hospitalist Admission and Anticipated Discharge Date Admission Date: June 03, 2021 Subjective 85 yo M admitted for weakness, found to have pneumonia. still remains on IV abx and telemetry discussed with daughter re: de-escalation d/c tele, however, abx almost completed so will just finish last day Patient reports some SOB with exertion and is still requiring oxygen at rest. Reports feeling much better overall Reports daily BM/tolerating PO some issues with frequent urination that is common for him (LUTS) and worsened by his Lasix denies chest pain or other new issues today daughter was at bedside and care plan explained she verbalized understanding. Review of Systems Review of Systems: All systems were reviewed and negative except as indicated in subjective above. Physical Exam Physical Exam: CONSTITUTIONAL: WNWD, vitals as above, generally well- appearing, NAD EYES: normal conjunctivae, ENT: external ear and nose normal, NECK: trachea midline, RESPIRATORY: clear to auscultation bilaterally, diminished breath sounds at bases, no crackles, rales or wheezes, normal respiratory effort CARDIOVASCULAR: regular rate and rhythm, S1 and 2 heard without murmurs, gallops or rubs, no JVD, no peripheral edema, GASTROINTESTINAL: soft, nontender, ND, no guarding MUSCULOSKELETAL: strength 5/5 throughout, head is normocephalic and atraumatic, SKIN: warm and dry, NEUROLOGIC: CN 2-12 grossly intact, no sensory deficit, normal cognition, normal speech, no tremor PSYCHIATRIC: alert cooperative and oriented to person, place and time. Results & Data Results & Data ([facility]) Vital Signs (Past 12 Hours) Vital Signs Temp Pulse Pulse Resp BP Pulse Ox 06/09/21 11:21 36.9 C 91 H 18 120/76 94 06/09/21 08:37 36.5 C 94 H 18 154/90 H 92 06/09/21 07:16 93 H 06/09/21 04:02 36.6 C 83 20 158/96 H 94 Medications Administered Current Inpatient Medications Acetaminophen (Acetaminophen 325 Mg Tab) 650 mg PO Q4H PRN PRN Reason: Pain or Fever Stop: 07/03/21 18:07 Last Admin: 06/04/21 14:40 Dose: 650 mg Documented by: Ascorbic Acid (Ascorbic Acid 500 Mg Tab) 500 mg PO [facility] Stop: 07/08/21 08:59 Last Admin: 06/09/21 08:27 Dose: 500 mg Documented by: Aspirin (Aspirin 81 Mg Ectab) 81 mg PO [facility] Stop: 07/04/21 08:59 Last Admin: 06/09/21 08:26 Dose: 81 mg Documented by: Bupropion HCl (Bupropion Xl 150 Mg Tabcr) 150 mg PO [facility] Stop: 07/04/21 08:59 Last Admin: 06/09/21 08:27 Dose: 150 mg Documented by: Cyanocobalamin (Cyanocobalamin (B-12) 500 Mcg Tablet) 1,000 mcg PO [facility] Stop: 07/08/21 08:59 Last Admin: 06/09/21 08:26 Dose: 1,000 mcg Documented by: Doxycycline Hyclate (Doxycycline Hyclate 100 Mg Cap) 100 mg PO BID ON LICENSE OF [facility] Stop: 06/10/21 20:59 Last Admin: 06/09/21 08:26 Dose: 100 mg Documented by: Enoxaparin Sodium (Enoxaparin Inj 40 Mg/0.4 Ml Syr) 40 mg SQ Q24H ON LICENSE OF [facility] Stop: 07/05/21 17:59 Last Admin: 06/08/21 17:22 Dose: 40 mg Documented by: Escitalopram Oxalate (Escitalopram Oxalate 10 Mg Tab) 10 mg PO QDD ON LICENSE OF [facility] Stop: 07/03/21 18:07 Last Admin: 06/08/21 17:21 Dose: 10 mg Documented by: Famotidine (Famotidine 20 Mg Tab) 20 mg PO HS ON LICENSE OF [facility] Stop: 07/03/21 20:59 Last Admin: 06/08/21 20:50 Dose: 20 mg Documented by: [facility]urosemide ([facility] 40 Mg Tab) [facility] [place]: 07/08/21 08:59 Last Admin: 06/09/21 08:27 Dose: 40 mg Documented by: Ceftriaxone Sodium 2,000 mg/ (Dextrose) 70 mls @ 100 mls/hr IV Q24H ON LICENSE OF [facility]; Protocol Stop: 06/10/21 20:59 Last Infusion: 06/09/21 08:41 Dose: Infused Documented by: Ipratropium [place] (Ipratropium [place] Neb Soln 0.02% 2.5 Ml Vial) 0.5 mg INH Q4H PRN PRN Reason: Shortness Of Breath Stop: 07/03/21 18:07 Levalbuterol HCl (Levalbuterol 1.25mg/0.5ml Neb) 1.25 mg INH Q4H PRN PRN Reason: Shortness Of Breath Stop: 07/03/21 18:07 Metoprolol Succinate (Metoprolol Succ 50mg Ext Rel Tab) [facility] Stop: 07/04/21 08:59 Last Admin: 06/09/21 08:27 Dose: 50 mg Documented by: Multivitamins (Multivitamin Tab) 1 tab [facility] [place]: 07/04/21 08:59 Last Admin: 06/09/21 08:26 Dose: 1 tab Documented by: Prednisone (Prednisone 10 Mg Tablet) 10 mg PO [facility] Stop: 07/04/21 08:59 Last Admin: 06/09/21 08:26 Dose: 10 mg Documented by: Vitamin D (Cholecalciferol 1,000 Units 25 Mcg Tab) 1,000 units PO [facility] Stop: 07/08/21 08:59 Last Admin: 06/09/21 08:27 Dose: 1,000 units Documented by: (1) Pneumonia Laterality: bilateral Lung location: lower lobe of lung Pneumonia type: due to unspecified organism Qualified Code(s): J18.9 - Pneumonia, unspecified organism
[2021-06-09] MEDS: ENOXAPARIN INJ 40 MG/0.4 ML SYR SQ SCH (16:06)
[2021-06-09] MEDS: ESCITALOPRAM OXALATE 10 MG TAB PO SCH (16:07)
[2021-06-09] MEDS: FAMOTIDINE 20 MG TAB PO SCH (21:02)
[2021-06-09] MEDS: cefTRIAXone SODIUM 2,000 MG in DEXTROSE 5% 50 ML IV SCH (21:02)
[2021-06-10] MEDS: ASCORBIC ACID 500 MG TAB PO SCH (09:26)
[2021-06-10] MEDS: ASPIRIN 81 MG ECTAB PO SCH (09:27)
[2021-06-10] MEDS: CYANOCOBALAMIN (B-12) 500 MCG TABLET PO SCH (09:27)
[2021-06-10] MEDS: CHOLECALCIFEROL 1,000 UNITS 25 MCG TAB PO SCH (09:27)
[2021-06-10] MEDS: buPROPion XL 150 MG TABCR PO SCH (09:27)
[2021-06-10] MEDS: predniSONE 10 MG TABLET PO SCH (09:28)
[2021-06-10] MEDS: FUROSEMIDE 40 MG TAB PO SCH (09:28)
[2021-06-10] MEDS: DOXYCYCLINE HYCLATE 100 MG CAP PO SCH (09:28)
[2021-06-10] MEDS: METOPROLOL SUCC 50MG EXT REL TAB PO SCH (09:28)
[2021-06-10] MEDS: MULTIVITAMIN TAB PO SCH (09:28)
[2021-06-10] MEDS: ENOXAPARIN INJ 40 MG/0.4 ML SYR SQ SCH (17:37)
[2021-06-10] MEDS: ESCITALOPRAM OXALATE 10 MG TAB PO SCH (17:38)
--- NOTE | 2021-06-10 18:54 | Hospitalist Progress Note ---
Date of Service June 10, 2021 Assessment & Plan (1) Acute respiratory failure with hypoxia: (2) Pneumonia: Plan: Acute hypoxic respiratory failure 2/2 pneumonia Completed Ceftriaxone and doxycycline course. Cultures are negative and he is clinically improved. remains on 2-3 L O2 via [place] Encouraged to use Incentive Spirometry wean off oxygen accordingly awaiting acceptance to Rehab-denied by [facility]SNF referrals in place. Elevated troponin chronic diastolic CHF no chest pain and current dyspnea with exertion is likely related to pneumonia. EKG no signs of acute ischemia already on ASA, Metoprolol Lisinopril held initially due to BP on the lower side- resume accordingly patient also initially on the dry side, now euvolemic, Lasix was restarted Possible acute metabolic encephalopathy 2/2 underlying infection from pneumonia, resolved currently oriented to baseline. DM 2 diet controlled, not on medication no hyperglycemia noted this admission HTN BP within normal range Lisinopril held initially due to BP on the lower side- resume accordingly, will cont to hold for now. continue Metoprolol CKD 3 chronic, creatinine at baseline CIDP chronic, stable. Continue Prednisone 10 mg po daily per home regimen. GERD chronic, stable. continue Pepcid HS per home regimen. Chronic anemia Hg stable 12-13 Depression chronic, stable. continue Escitalopram, Bupropion per home regimen. DVT prophylaxis Lovenox SC Disposition pending lives at home with his PT/OT evaluation ordered: recommending to transition to Rehab once authorization comes through. Airam Shah DO [facility] Hospitalist Admission and Anticipated Discharge Date Admission Date: June 03, 2021 Subjective 85 yo M admitted for weakness, found to have pneumonia. doing well overall still requires oxygen supplementation but feels well tolerating PO having regular BM some slowness and dyspnea with waling around still Review of Systems Review of Systems: All systems were reviewed and negative except as indicated in subjective above. Physical Exam Physical Exam: CONSTITUTIONAL: WNWD, vitals as above, generally well- appearing, NAD EYES: normal conjunctivae, ENT: external ear and nose normal, NECK: trachea midline, RESPIRATORY: clear to auscultation bilaterally, diminished breath sounds at bases, no crackles, rales or wheezes, normal respiratory effort CARDIOVASCULAR: regular rate and rhythm, S1 and 2 heard without murmurs, gallops or rubs, no JVD, no peripheral edema, GASTROINTESTINAL: soft, nontender, ND, no guarding MUSCULOSKELETAL: strength 5/5 throughout, head is normocephalic and atraumatic, SKIN: warm and dry, NEUROLOGIC: CN 2-12 grossly intact, no sensory deficit, normal cognition, normal speech, no tremor PSYCHIATRIC: alert cooperative and oriented to person, place and time. Results & Data Results & Data ([facility]) Vital Signs (Past 12 Hours) Vital Signs Temp Pulse Resp BP Pulse Ox 06/10/21 14:35 36.6 C 78 19 106/63 78 L 06/10/21 07:28 36.6 C 77 20 130/78 93 Medications Administered Current Inpatient Medications Acetaminophen (Acetaminophen 325 Mg Tab) 650 mg PO Q4H PRN PRN Reason: Pain or Fever Stop: 07/03/21 18:07 Last Admin: 06/04/21 14:40 Dose: 650 mg Documented by: Ascorbic Acid (Ascorbic Acid 500 Mg Tab) [facility] Stop: 07/08/21 08:59 Last Admin: 06/10/21 09:26 Dose: 500 mg Documented by: Aspirin (Aspirin 81 Mg Ectab) 81 [facility] Stop: 07/04/21 08:59 Last Admin: 06/10/21 09:27 Dose: 81 mg Documented by: Bupropion HCl (Bupropion Xl 150 Mg Tabcr) 150 mg PO QAM [facility] Stop: 07/04/21 08:59 Last Admin: 06/10/21 09:27 Dose: 150 mg Documented by: Cyanocobalamin (Cyanocobalamin (B-12) 500 Mcg Tablet) 1,000 mcg PO QAM [facility] Stop: 07/08/21 08:59 Last Admin: 06/10/21 09:27 Dose: 1,000 mcg Documented by: Doxycycline Hyclate (Doxycycline Hyclate 100 Mg Cap) 100 mg PO BID [facility] Stop: 06/10/21 20:59 Last Admin: 06/10/21 09:28 Dose: 100 mg Documented by: Enoxaparin Sodium (Enoxaparin Inj 40 Mg/0.4 Ml Syr) 40 mg SQ Q24H [facility] Stop: 07/05/21 17:59 Last Admin: 06/10/21 17:37 Dose: 40 mg Documented by: Escitalopram Oxalate (Escitalopram Oxalate 10 Mg Tab) 10 mg PO QDD [facility] Stop: 07/03/21 18:07 Last Admin: 06/10/21 17:38 Dose: 10 mg Documented by: Famotidine (Famotidine 20 Mg Tab) 20 mg PO [facility] Stop: 07/03/21 20:59 Last Admin: 06/09/21 21:02 Dose: 20 mg Documented by: Furosemide (Furosemide 40 Mg Tab) [address] [facility] Stop: 07/08/21 08:59 Last Admin: 06/10/21 09:28 Dose: 40 mg Documented by: Ceftriaxone Sodium 2,000 mg/ (Dextrose) 70 mls @ 100 mls/hr IV Q24H [facility]; Protocol Stop: 06/10/21 20:59 Last Infusion: 06/09/21 21:58 Dose: Infused Documented by: Ipratropium [place] (Ipratropium [place] Neb Soln 0.02% 2.5 Ml Vial) 0.5 mg INH Q4H PRN PRN Reason: Shortness Of Breath Stop: 07/03/21 18:07 Levalbuterol HCl (Levalbuterol 1.25mg/0.5ml Neb) 1.25 mg INH Q4H PRN PRN Reason: Shortness Of Breath Stop: 07/03/21 18:07 Metoprolol Succinate (Metoprolol Succ 50mg Ext Rel Tab) [address] [facility] Stop: 07/04/21 08:59 Last Admin: 06/10/21 09:28 Dose: 50 mg Documented by: Multivitamins (Multivitamin Tab) [address] [facility] Stop: 07/04/21 08:59 Last Admin: 06/10/21 09:28 Dose: 1 tab Documented by: Prednisone (Prednisone 10 Mg Tablet) [address] [facility] Stop: 07/04/21 08:59 Last Admin: 06/10/21 09:28 Dose: 10 mg Documented by: Vitamin D (Cholecalciferol 1,000 Units 25 Mcg Tab) 1,[address] [facility] Stop: 07/08/21 08:59 Last Admin: 06/10/21 09:27 Dose: 1,000 units Documented by: (1) Pneumonia Laterality: bilateral Lung location: lower lobe of lung Pneumonia type: due to unspecified organism Qualified Code(s): J18.9 - Pneumonia, unspecified organism
[2021-06-10] MEDS: FAMOTIDINE 20 MG TAB PO SCH (20:57)
[2021-06-11] MEDS: FUROSEMIDE 40 MG TAB PO SCH (07:50)
[2021-06-11] MEDS: ASCORBIC ACID 500 MG TAB PO SCH (07:50)
[2021-06-11] MEDS: CHOLECALCIFEROL 1,000 UNITS 25 MCG TAB PO SCH (07:51)
[2021-06-11] MEDS: ASPIRIN 81 MG ECTAB PO SCH (07:51)
[2021-06-11] MEDS: CYANOCOBALAMIN (B-12) 500 MCG TABLET PO SCH (07:51)
[2021-06-11] MEDS: MULTIVITAMIN TAB PO SCH (07:51)
[2021-06-11] MEDS: METOPROLOL SUCC 50MG EXT REL TAB PO SCH (07:51)
[2021-06-11] MEDS: predniSONE 10 MG TABLET PO SCH (07:51)
[2021-06-11] MEDS: buPROPion XL 150 MG TABCR PO SCH (07:51)
--- NOTE | 2021-06-11 09:12 | Hospitalist Progress Note ---
Date of Service June 11, 2021 Assessment & Plan (1) Acute respiratory failure with hypoxia: (2) Pneumonia: Plan: Acute hypoxic respiratory failure 2/2 pneumonia Completed Ceftriaxone and doxycycline course. Cultures are negative and he is clinically improved. remains on 2-3 L O2 via [place] Encouraged to use Incentive Spirometry wean off oxygen accordingly awaiting acceptance to Rehab-denied by [facility] referrals in place. Elevated troponin chronic diastolic CHF no chest pain and current dyspnea with exertion is likely related to pneumonia. EKG no signs of acute ischemia already on ASA, Metoprolol Lisinopril held initially due to BP on the lower side- resume accordingly patient also initially on the dry side, now euvolemic, Lasix was restarted Possible acute metabolic encephalopathy 2/2 underlying infection from pneumonia, resolved currently oriented to baseline. DM 2 diet controlled, not on medication no hyperglycemia noted this admission HTN BP within normal range Lisinopril held initially due to BP on the lower side- resume accordingly, will cont to hold for now. continue Metoprolol CKD 3 chronic, creatinine at baseline CIDP chronic, stable. Continue Prednisone 10 mg po daily per home regimen. GERD chronic, stable. continue Pepcid HS per home regimen. Chronic anemia Hg stable 12-13 Depression chronic, stable. continue Escitalopram, Bupropion per home regimen. DVT prophylaxis Lovenox SC Disposition pending lives at home with his PT/OT evaluation ordered: recommending to transition to Rehab once authorization comes through. Airam Shah DO [facility] Hospitalist (3) Chronic steroid use: (4) Aspergillus pneumonia: Plan: sputum culture returned with aspergillus in patient on chronic steroids. Initiating voriconazole now, ID and pulm consult. Fungal blood culture, BMP and CBC pending. Admission and Anticipated Discharge Date Admission Date: June 03, 2021 Results & Data Results & Data ([facility]) Vital Signs (Past 12 Hours) Vital Signs Temp Pulse Resp BP Pulse Ox 06/11/21 08:00 36.4 C L 69 20 112/72 93 06/10/21 23:05 36.9 C 68 20 119/74 93 (1) Pneumonia Laterality: bilateral Lung location: lower lobe of lung Pneumonia type: due to unspecified organism Qualified Code(s): J18.9 - Pneumonia, unspecified organism
[2021-06-11] MEDS ORDERED: [UNRECOGNIZED DRUG - REMARK] PRN (09:41)
[2021-06-11 09:45] LABS: Basophils # (auto) 0.06 K/uL (0-0.2); Basophils % (auto) 0.7 %; Eosinophils # (auto) 0.37 K/uL (0-0.5); Eosinophils % (auto) 4.2 %; Hematocrit (blood only) 45.4 % (42-52); Hemoglobin 14.6 g/dL (14.0-18.0); Immature Granulocytes # (auto) 0.36 K/uL (0.00-0.02); Immature Granulocytes % (auto) 4.1 %; Lymphocytes # (auto) 0.94 K/uL (1.2-3.4); Lymphocytes % (auto) 10.8 %; Mean Corpuscular Hemoglobin 33.8 pg (25-34); Mean Corpuscular Hgb Conc 32.2 g/dL (32-36); Mean Corpuscular Volume 105.1 fL (80-100); Monocytes # (auto) 0.75 K/uL (0.11-0.59); Monocytes % (auto) 8.6 %; Neutrophils # (auto) 6.23 K/uL (1.4-6.5); Neutrophils % (auto) 71.6 %; Platelet Count 384 K/uL (130-400); RDW Coefficient of Variation 13.4 % (11.5-14.5); RDW Standard Deviation 51.8 fL (36.4-46.3); Red Blood Count 4.32 M/uL (4.7-6.1); White Blood Count 8.71 K/uL (4.8-10.8)
[2021-06-11 10:11] LABS: BUN Creatinine Ratio 25.5 (10-20); Creatinine Clr Calc Pharmacy 60.1 ml/min; Est GFR (African American) 80.6 ml/min; Est GFR (Non-African American) 69.5 ml/min; Potassium 3.8 mmol/L (3.5-5.1)
--- NOTE | 2021-06-11 11:51 | Discharge Summary ---
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 Cultures are negative and he is clinically improved. remains on 2-3 L O2 via [place] Encouraged to use Incentive Spirometry wean off oxygen accordingly awaiting acceptance to Rehab-denied by [facility] referrals in place. Elevated troponin chronic diastolic CHF no chest pain and current dyspnea with exertion is likely related to pneumonia. EKG no signs of acute ischemia already on ASA, Metoprolol Lisinopril held initially due to BP on the lower side- resume accordingly patient also initially on the dry side, now euvolemic, Lasix was restarted Possible acute metabolic encephalopathy 2/2 underlying infection from pneumonia, resolved currently oriented to baseline. DM 2 diet controlled, not on medication no hyperglycemia noted this admission HTN BP within normal range Lisinopril held initially due to BP on the lower side- resume accordingly, will cont to hold for now. continue Metoprolol CKD 3 chronic, creatinine at baseline CIDP chronic, stable. Continue Prednisone 10 mg po daily per home regimen. GERD chronic, stable. continue Pepcid HS per home regimen. Chronic anemia Hg stable 12-13 Depression chronic, stable. continue Escitalopram, Bupropion per home regimen. DVT prophylaxis Lovenox SC Disposition pending lives at home with his PT/OT evaluation ordered: recommending to transition to Rehab once authorization comes through. DO [facility] Hospital[facility] (3) Chronic steroid use: (4) Aspergillus pneumonia: sputum culture returned with aspergillus in patient on chronic steroids. Initiating voriconazole now, ID and pulm consult. Fungal blood culture, BMP and CBC pending. 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 Prolonged QTc Condition on Discharge: Good Activity: Resume your previous activity Non-emergency contact: Primary Care Provider Call non-emergency contact if: you have any medication questions, your symptoms worsen, your pain is not controlled, your pain is worsening, your pain is unusual for you, your pain is concerning for you and you have a fever Follow-up/Referrals: Rowdy Kelly MD [Outside Practitioners] - (Date & Time 06/14/2021 11:20 AM Provider Rowdy Kelly MD Department [facility] ) Diet: Carb Consistent or DM2 and Heart Healthy Addtl Attending Provider Instructions: Please take all medications as instructed on discharge list below. It is recommended that you have repeat chest imaging in 4 weeks to ensure complete resolution of your right sided pleural effusion and your pneumonia. This may be ordered by your primary care physician on followup, scheduled above. It was a pleasure taking care of you! Please call if you have any questions or problems. You can reach a [facility] hospitalist on duty at [facility] 24 hours a day by calling [phone]. Take care of yourself. Airam Shah, DO [facility] P[facility] Studies at Discharge: No Stand-Alone Forms: My [facility] Skilled Items Patient informed of condition?: Yes DNR: No Discharge Level of Care: Skilled Communicable Disease: No Discharge Prognosis: Stable Lines: None Urinary Catheter: No Medications and DC Order Prescriptions: Continued famotidine [Acid Hydraulic Lift Operator (famotidine)] 20 mg tablet 20 mg PO HS RF: 0 multivitamin Tablet 1 tab PO QAM RF: 0 alendronate [Fosamax] 70 mg Tablet 70 mg PO WK RF: 0 cyanocobalamin (vitamin B-12) [Vitamin B-12] 1,000 mcg Tablet 1,000 mcg PO QAM RF: 0 cholecalciferol (vitamin D3) [Vitamin D3] 1,000 unit Tablet 1,000 unit PO QAM RF: 0 ascorbic acid (vitamin C) 500 mg Tablet 500 mg PO QAM RF: 0 bupropion HCl 150 mg tablet extended release 24 hr 150 mg PO QAM RF: 0 aspirin 81 mg tablet,delayed release (DR/EC) 81 mg PO QAM RF: 0 furosemide 40 mg tablet 40 mg PO QAM RF: 0 prednisone 10 mg tablet 10 mg PO QAM RF: 0 metoprolol succinate 50 mg tablet extended release 24 hr 50 mg PO QAM RF: 0 lisinopril 5 mg tablet 5 mg PO QAM RF: 0 escitalopram oxalate 20 mg tablet 10 mg PO QDD RF: 0 Admission Data Admit Date/Time: 06/03/21 15:44 Attending Provider: Airam Shah Admit Provider: Jose Alfredo Sanchez Primary Care Provider: Uriel Comer Other Providers: [facility] ; Lilia [facility] ; Gia David ; Jose Alfredo Sanchez ; Mario Nesbitt ; Brittney Frias ; Manas Christian I. ; Chris Hill II ; Iraida Roque ; Rowdy Goff ; Ryan Barrientos
--- NOTE | 2021-06-11 12:05 | Electrocardiogram Report ---
Test Reason : Blood Pressure : / mmHG Vent. Rate : 069 BPM Atrial Rate : 069 BPM P-R Int : 162 ms QRS Dur : 156 ms QT Int : 474 ms P-R-T Axes : 037 -53 118 degrees QTc Int : 507 ms Normal sinus rhythm Left axis deviation Left bundle branch block Abnormal ECG When compared with ECG of 04-JUN-2021 10:50, No significant change was found Confirmed by Krzysztof Melo ([id number]) on 06/11/2021 12:05:12 PM Referred By: Uriel Comer Confirmed By:Adrian Melo
== END 2021-06-11 14:13 | DRG 193 ==
LOC: ED 12:25 → EDINP 15:44 → SUATTDRO 15:44 → 2W 20:35